=== PATIENT | female | born 1980 | race Caucasian/White ===

== ENCOUNTER 2020-10-13 06:52 | Emergency (ER) | payer MEDICAID, SELFPAY ==
[2020-10-13 07:09] VITALS: BP 122/76; PULSE 88; RESP 16; TEMP 36.8; O2SAT 97; BMI 29.2
--- NOTE | 2020-10-13 07:32 | ED.FEMALEGU ---
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 and procedure was fine there was no active bleeding from the lesion today patient woke up with blood soaked in the bed feeling slightly weak MD elicited complaint: vaginal bleeding Onset (ago): day(s) (14) Severity: moderate Related Data Allergies Allergy/AdvReac Type Severity Reaction Status Date / Time amoxicillin [Amoxicillin] Allergy Mild HIVES, rash Unverified 08/10/20 16:28 Penicillins Allergy Mild HIVES Unverified 08/10/20 16:28 penicillin V Allergy Unknown rash Verified 09/28/18 00:00 Review of Systems Constitutional: Constitutional: Reports fatigue and Reports weakness Cardiovascular: Cardiovascular: Reports no additional cardiovascular complaints Respiratory: Respiratory: Reports no additional respiratory complaints Gastrointestinal: Gastrointestinal: Reports no additional gastrointestinal complaints Genitourinary: Genitourinary: Reports as per HPI Musculoskeletal: Musculoskeletal: Reports no additional musculoskeletal complaints Neurologic: Reports system reviewed and no additional complaints, except as documented and Reports weakness Endocrine: Endocrine: Reports fatigue Hematologic/Lymphatic: Hematologic/Lymphatic: Reports no additional hematologic/lymphatic complaints [facility] Past Medical History Medical History Hypothyroidism Surgical History H/O tubal ligation Social History Social History Advance Directives: No Advance Directives Information Provided: No Physical Exam Vital Signs: Vital Signs: Last Vital Signs Temp 98.2 F 10/13/20 07:09 Pulse 88 10/13/20 07:09 Resp 16 10/13/20 07:09 BP 122/76 10/13/20 07:09 Pulse Ox 97 10/13/20 07:09 Body Mass Index 29.2 Appearance: Alert. Oriented X3. No acute distress. Eyes: Pupils equal, round and reactive to light. ENT: Pharynx normal. Neck: Normal inspection. Neck supple. CVS: Normal heart rate and rhythm. Pulses normal. Respiratory: No respiratory distress. Breath sounds normal. Abdomen: Soft , mild tenderness lower pelvic area Skin: Skin warm and dry. Normal skin color. Normal skin turgor. Extremities: No lower extremity edema. Good range of movement Neuro: Oriented X 3. No motor deficit. No sensory deficit. MDM - Female Genitourinary MDM Narrative Medical decision making narrative: patient with dysfunctional uterine bleeding with stable vitals and H&H ultrasound of the pelvis done which did not show any uterine lesion patient denies any history of DVT or family history of breast cancer agree to start start her on control pills patient had urine test done outpatient last week which was negative for and patient has tubal ligation Medical Records Attestation: I reviewed the patient's medical records. Lab Data Attestation: I reviewed the patient's lab results. Result diagrams: 10/13/20 07:59 10/13/20 07:59 Labs: Lab Results 10/13/20 10/13/20 10/13/20 Range/Units 07:59 07:59 07:59 WBC 6.1 (4.8-10.8) X10*3/uL RBC 4.09 L (4.20-5.50) X10*6/uL Hgb 13.5 (12.0-16.0) g/dl Hct 39.2 (37-47) % MCV 95.8 (80-98) fL MCH 33.0 (27.0-33.0) pg MCHC 34.4 (31.0-35.0) g/dl RDW 11.3 (11.0-16.0) % Plt Count 247 (160-400) X10*3/uL MPV 9.5 (9.4-12.3) fL Immature Gran % (Auto) 0.2 (0.0-0.4) % Neut % (Auto) 70.4 (45-73) % Lymph % (Auto) 18.8 L (20-40) % [place] % (Auto) 8.6 (2-11) % Eos % (Auto) 1.5 (0-4) % Baso % (Auto) 0.5 (0-2) % Lymph # (Auto) 1.1 L (1.2-4.9) X10*3/uL [place] # (Auto) 0.5 (0.1-1.2) X10*3/uL Eos # (Auto) 0.1 (0.0-0.4) X10*3/uL Baso # (Auto) 0.0 (0.0-0.2) X10*3/uL Abs Immat Gran (auto) 0.01 (0.00-0.03) X10*3/uL Absolute Neuts (auto) 4.3 (2.0-8.3) X10*3/uL Absolute Nucleated RBC 0.000 (0.0-0.012) X10*3/uL Nucleated RBC % (auto) 0.0 (0.0-0.2) /100WBC PT 12.3 (10.8-13.0) SEC INR 1.0 (0.9-1.1) Sodium 139 (135-145) mmol/L Potassium 4.0 (3.3-5.1) mmol/l Chloride 108 (96-108) mmol/L Carbon Dioxide 25 (22-29) mmol/L Anion Gap 10 L (12-20) BUN 10 (9-16) mg/dL Creatinine 0.75 (0.5-1.4) mg/dL Estim Creat Clear Calc 88.5 Estimated GFR > 60 Random Glucose 99 (60-115) mg/dL Calcium 8.3 L (8.4-10.2) mg/dL
--- NOTE | 2020-10-13 08:02 | PC.NURSE ---
PT SITTING UP AWAITING US LABS HAVE BEEN DRAWN AND SENT AWAITING RESULTS
[2020-10-13 08:04] LABS: MANUAL DIFF FLAG NO
[2020-10-13 08:12] LABS: Prothrombin Time 12.3 SEC (10.8-13.0)
[2020-10-13 08:16] LABS: Basophils Percent Auto 0.5 % (0-2); Eosinophils Absolute Auto 0.1 X10*3/uL (0.0-0.4); Eosinophils Percent Auto 1.5 % (0-4); Hematocrit 39.2 % (37-47); Hemoglobin 13.5 g/dl (12.0-16.0); Imm Gran Abs Auto 0.01 X10*3/uL (0.00-0.03); Imm Gran Pct Auto 0.2 % (0.0-0.4); Lymphocytes Absolute Auto 1.1 X10*3/uL (1.2-4.9); Lymphocytes Percent Auto 18.8 % (20-40); Mean Corpuscular HGB Conc 34.4 g/dl (31.0-35.0); Mean Corpuscular Volume 95.8 fL (80-98); Mean Platelet Volume 9.5 fL (9.4-12.3); Monocytes Absolute Auto 0.5 X10*3/uL (0.1-1.2); Monocytes Percent Auto 8.6 % (2-11); Neutrophils Absolute Auto 4.3 X10*3/uL (2.0-8.3); Neutrophils Percent Auto 70.4 % (45-73); Platelet Count 247 X10*3/uL (160-400); Red Blood Count 4.09 X10*6/uL (4.20-5.50); Red Cell Distribution Width 11.3 % (11.0-16.0); White Blood Count 6.1 X10*3/uL (4.8-10.8)
[2020-10-13 08:31] LABS: Anion Gap 10 (12-20); Blood Urea Nitrogen 10 mg/dL (9-16); Calcium 8.3 mg/dL (8.4-10.2); Carbon Dioxide 25 mmol/L (22-29); Chloride 108 mmol/L (96-108); Creatinine Clr Calc Pharmacy 88.5; Estimated Glomerular Filt Rate > 60; Glucose Random 99 mg/dL (60-115); Sodium 139 mmol/L (135-145)
--- NOTE | 2020-10-13 08:42 | US_ITS ---
EXAMINATION: PELVIC ULTRASOUND CLINICAL INFORMATION: Heavy vaginal bleeding. Post LEEP procedure 09/29/2020 COMPARISON: Previous CT of the abdomen and pelvis and pelvic ultrasound May 2016 TECHNIQUE: Transabdominal and transvaginal pelvic ultrasound was performed. Transvaginal exam was performed for better visualization of the uterus and ovaries. FINDINGS: The uterus is anteverted and measures 10.5 x 3.3 x 5.2 cm in dimension. There is a small cyst adjacent to the endometrium in the anterior uterine body measuring 7 x 4 x 7 mm. No other focal uterine lesion is seen. Endometrial thickness is upper normal in size measuring 1.5 cm. The cervix is heterogeneous appearing. There is a nabothian cyst in the cervix. The ovaries are seen transabdominally only. The ovaries are normal-appearing. The right ovary measures 3 x 1.7 x 2.2 cm and the left ovary measures 2.5 x 1.1 x 1.8 cm. There is no fluid in the pelvis. US/US transvaginal IMPRESSION: Small 5 mm cyst adjacent to the endometrium. The endometrium is upper normal in thickness measuring 1.5 cm. Heterogeneous appearing cervix.
--- NOTE | 2020-10-13 08:42 | US_ITS ---
EXAMINATION: PELVIC ULTRASOUND CLINICAL INFORMATION: Heavy vaginal bleeding. Post LEEP procedure 09/29/2020 COMPARISON: Previous CT of the abdomen and pelvis and pelvic ultrasound May 2016 TECHNIQUE: Transabdominal and transvaginal pelvic ultrasound was performed. Transvaginal exam was performed for better visualization of the uterus and ovaries. FINDINGS: The uterus is anteverted and measures 10.5 x 3.3 x 5.2 cm in dimension. There is a small cyst adjacent to the endometrium in the anterior uterine body measuring 7 x 4 x 7 mm. No other focal uterine lesion is seen. Endometrial thickness is upper normal in size measuring 1.5 cm. The cervix is heterogeneous appearing. There is a nabothian cyst in the cervix. The ovaries are seen transabdominally only. The ovaries are normal-appearing. The right ovary measures 3 x 1.7 x 2.2 cm and the left ovary measures 2.5 x 1.1 x 1.8 cm. There is no fluid in the pelvis. US/US pelvic complete IMPRESSION: Small 5 mm cyst adjacent to the endometrium. The endometrium is upper normal in thickness measuring 1.5 cm. Heterogeneous appearing cervix.
== END 2020-10-13 11:01 | disposition home or self-care (01) ==
PROVIDERS: Emergency Provider Internal Medicine; PCP Internal Medicine
DX: N93.8 Other specified abnormal uterine and vaginal bleeding (principal); R10.2 Pelvic and perineal pain
CPT/HCPCS: 36415; 76830; 76856; 80048; 85025; 85610; 99282; 99284

== ENCOUNTER → 2020-11-03 08:24 | Outpatient (BNVA) | payer OTHER, SELFPAY | PROVIDERS: PCP Internal Medicine; Visit Provider Obstetrics & Gynecology | DX: Z30.011 Encounter for initial prescription of contraceptive pills (principal) | CPT/HCPCS: 99212 ==

== ENCOUNTER 2020-11-29 13:40 | Outpatient (REF) | payer OTHER, SELFPAY | END 2020-11-29 13:41 | disposition home or self-care (01) | LOC: HO.LAB 13:40 | PROVIDERS: PCP Internal Medicine; Visit Provider Obstetrics & Gynecology | DX: N93.9 Abnormal uterine and vaginal bleeding, unspecified (principal) | CPT/HCPCS: 58100; 81025; 88305 ==

== ENCOUNTER → 2020-12-06 13:25 | Outpatient (BNVA) | payer OTHER, SELFPAY | PROVIDERS: PCP Internal Medicine; Visit Provider Obstetrics & Gynecology | DX: Z76.89 Persons encountering health services in other specified circumstances (principal) ==

== ENCOUNTER 2020-12-25 07:51 | Outpatient (REF) | payer OTHER, SELFPAY ==
[2020-12-25 08:18] LABS: MANUAL DIFF FLAG NO
[2020-12-25 08:23] LABS: Basophils Percent Auto 0.8 % (0-2); Eosinophils Absolute Auto 0.2 X10*3/uL (0.0-0.4); Hematocrit 40.2 % (37-47); Hemoglobin 13.5 g/dl (12.0-16.0); Imm Gran Abs Auto 0.02 X10*3/uL (0.00-0.03); Imm Gran Pct Auto 0.4 % (0.0-0.4); Lymphocytes Absolute Auto 1.3 X10*3/uL (1.2-4.9); Lymphocytes Percent Auto 24.6 % (20-40); Mean Corpuscular HGB Conc 33.6 g/dl (31.0-35.0); Mean Corpuscular Hemoglobin 33.1 pg (27.0-33.0); Mean Corpuscular Volume 98.5 fL (80-98); Mean Platelet Volume 9.9 fL (9.4-12.3); Monocytes Absolute Auto 0.6 X10*3/uL (0.1-1.2); Monocytes Percent Auto 10.4 % (2-11); Neutrophils Absolute Auto 3.2 X10*3/uL (2.0-8.3); Neutrophils Percent Auto 59.8 % (45-73); Platelet Count 218 X10*3/uL (160-400); Red Blood Count 4.08 X10*6/uL (4.20-5.50); Red Cell Distribution Width 11.7 % (11.0-16.0); White Blood Count 5.3 X10*3/uL (4.8-10.8)
[2020-12-25 08:51] LABS: Alanine Aminotransferase 24 U/L (0-31); Albumin Level 4.2 g/dL (3.5-5.0); Alkaline Phosphatase 36 U/L (39-117); Anion Gap 11 (12-20); Aspartate Amino Transferase 20 U/L (5-31); Bilirubin Total 0.4 mg/dL (0.0-1.0); Blood Urea Nitrogen 10 mg/dL (9-16); Calcium 8.8 mg/dL (8.4-10.2); Carbon Dioxide 25 mmol/L (22-29); Chloride 106 mmol/L (96-108); Cholesterol 217 mg/dL; Estimated Glomerular Filt Rate > 60; Glucose Fasting 93 mg/dL (60-99); HDL Cholesterol 61 mg/dL; LDL Cholesterol Calculated 128 mg/dl; Potassium 4.4 mmol/L (3.3-5.1); Sodium 138 mmol/L (135-145); Total Protein 6.8 g/dL (6.5-8.0); Triglycerides 140 mg/dL
[2020-12-25 09:00] LABS: Glucose Urine UA NEG (NEG); Leukocyte Esterase Urine NEG (NEG); Nitrite Urine NEG (NEG); Specific Gravity - Urine >= 1.030 (1.005-1.025); Urine Blood NEG (NEG); Urine Ketones NEG (NEG); Urine Protein NEG (NEG-TRACE)
[2020-12-25 09:01] LABS: Appearance Urine HAZY; Color Urine YELLOW
[2020-12-25 09:11] LABS: Thyroid Stimulating Hormone 0.63 uIU/mL (0.32-4.0)
== END 2020-12-25 07:52 | disposition home or self-care (01) ==
LOC: HO.LAB 07:51
PROVIDERS: PCP Internal Medicine; Visit Provider Internal Medicine
DX: Z00.00 Encounter for general adult medical examination without abnormal findings (principal); E03.9 Hypothyroidism, unspecified
CPT/HCPCS: 36415; 80053; 80061; 81003; 84443; 85025

== ENCOUNTER → 2021-01-23 13:20 | Outpatient (BNVA) | payer OTHER, SELFPAY | PROVIDERS: PCP Internal Medicine; Visit Provider Internal Medicine | DX: R07.2 Precordial pain (principal) | CPT/HCPCS: 93005; 99202 ==

== ENCOUNTER 2021-07-17 10:28 | Outpatient (REF) | payer OTHER, SELFPAY ==
[2021-07-17 12:07] LABS: Thyroid Stimulating Hormone 0.82 uIU/mL (0.32-4.0)
== END 2021-07-17 10:29 | disposition home or self-care (01) ==
LOC: HO.LNP 10:28
PROVIDERS: Visit Provider Internal Medicine
DX: E03.9 Hypothyroidism, unspecified (principal)
CPT/HCPCS: 84443

== ENCOUNTER → 2021-07-20 14:17 | Outpatient (BNVA) | payer OTHER, SELFPAY | PROVIDERS: PCP Internal Medicine; Visit Provider Advanced Practice Midwife | DX: Z30.41 Encounter for surveillance of contraceptive pills (principal); R23.2 Flushing | CPT/HCPCS: 99212 ==

== ENCOUNTER 2021-07-23 07:24 | Outpatient (REF) | payer OTHER, SELFPAY ==
--- NOTE | ~2021-07-23 | MM_ITS ---
EXAMINATION: MM SCREENING DIGITAL BREAST TOMOSYNTHESIS, BILATERAL CLINICAL INFORMATION: Screening. Asymptomatic. Age 41. No prior breast imaging. No known family history breast cancer. The lifetime risk of breast cancer based on the Tyrer-Cuzick Model is 9%. COMPARISON: None (current study represents initial baseline exam). TECHNIQUE: Digital breast tomosynthesis is performed in both the craniocaudal and mediolateral oblique views along with computer-aided detection (CAD). Synthesized 2D images are generated from the tomosynthesis. FINDINGS: The breasts are heterogeneously dense, which may obscure small masses (ACR BI-RADS breast composition Category c). Breast tissue composition borders on average fibroglandular. There is fine fibronodular parenchymal pattern without significant mass or architectural abnormality. There are no abnormal calcifications. The axilla and skin contours are unremarkable. MM/MM tomosynthesis screening BI IMPRESSION: No mammographic evidence of malignancy. ASSESSMENT: BI-RADS 1: Negative RECOMMENDATION: Routine annual mammography screening. This patient's information was entered into a reminder system with a target due date for their next mammogram.
== END 2021-07-23 07:25 | disposition home or self-care (01) ==
LOC: HO.MAMMO 07:24
PROVIDERS: Visit Provider Advanced Practice Midwife
DX: Z12.31 Encounter for screening mammogram for malignant neoplasm of breast (principal)
CPT/HCPCS: 77063; 77067

== ENCOUNTER 2021-10-15 13:21 | Outpatient (REF) | payer OTHER, SELFPAY ==
[2021-10-19 16:31] LABS: HPV mRNA E6/E7 rflx Not Detected (Not Detected)
== END 2021-10-15 13:22 | disposition home or self-care (01) ==
LOC: HO.LAB 13:21
PROVIDERS: PCP Internal Medicine; Visit Provider Advanced Practice Midwife
DX: Z01.419 Encounter for gynecological examination (general) (routine) without abnormal findings (principal); Z79.899 Other long term (current) drug therapy
CPT/HCPCS: 87624; 88142

== ENCOUNTER 2021-12-28 10:46 | Outpatient (REF) | payer OTHER, SELFPAY ==
[2021-12-28 10:49] LABS: MANUAL DIFF FLAG NO
[2021-12-28 10:59] LABS: Basophils Percent Auto 0.5 % (0-2); Eosinophils Absolute Auto 0.2 X10*3/uL (0.0-0.4); Eosinophils Percent Auto 2.7 % (0-4); Hematocrit 40.8 % (37.0-47.0); Hemoglobin 13.8 g/dl (12.0-16.0); Imm Gran Abs Auto 0.01 X10*3/uL (0.00-0.03); Imm Gran Pct Auto 0.2 % (0.0-0.4); Lymphocytes Absolute Auto 1.7 X10*3/uL (1.2-4.9); Lymphocytes Percent Auto 27.6 % (20-40); Mean Corpuscular HGB Conc 33.8 g/dl (31.0-35.0); Mean Corpuscular Hemoglobin 31.6 pg (27.0-33.0); Mean Corpuscular Volume 93.4 fL (80.0-98.0); Mean Platelet Volume 10.1 fL (9.4-12.3); Monocytes Absolute Auto 0.8 X10*3/uL (0.1-1.2); Monocytes Percent Auto 12.9 % (2-11); Neutrophils Absolute Auto 3.5 x10*3/uL (2.0-8.3); Neutrophils Percent Auto 56.1 % (45-73); Platelet Count 275 X10*3/uL (160-400); Red Blood Count 4.37 X10*6/uL (4.20-5.50); Red Cell Distribution Width 12.5 % (11.0-16.0); White Blood Count 6.2 X10*3/uL (4.8-10.8)
[2021-12-28 11:00] LABS: Appearance Urine CLEAR; Color Urine YELLOW; Glucose Urine UA NEG (NEG); Leukocyte Esterase Urine NEG (NEG); Nitrite Urine NEG (NEG); Specific Gravity - Urine 1.025 (1.005-1.025); Urine Blood NEG (NEG); Urine Ketones NEG (NEG); Urine Protein NEG (NEG-TRACE)
[2021-12-28 11:15] LABS: Alanine Aminotransferase 19 U/L (0-31); Alkaline Phosphatase 54 U/L (39-117); Anion Gap 12 (12-20); Aspartate Amino Transferase 14 U/L (5-31); Bilirubin Total 0.5 mg/dL (0.0-1.0); Blood Urea Nitrogen 14 mg/dL (9-16); Calcium 9.2 mg/dL (8.4-10.2); Carbon Dioxide 23 mmol/L (22-29); Chloride 109 mmol/L (96-108); Cholesterol 184 mg/dL; Estimated Glomerular Filt Rate > 60; Glucose Fasting 101 mg/dL (60-99); HDL Cholesterol 46 mg/dL; LDL Cholesterol Calculated 124 mg/dl; Potassium 4.2 mmol/L (3.3-5.1); Sodium 140 mmol/L (135-145); Total Protein 6.5 g/dL (6.5-8.0); Triglycerides 71 mg/dL
== END 2021-12-28 10:47 | disposition home or self-care (01) ==
LOC: HO.LNP 10:46
PROVIDERS: Visit Provider Internal Medicine
DX: Z00.00 Encounter for general adult medical examination without abnormal findings (principal); E03.9 Hypothyroidism, unspecified
CPT/HCPCS: 80053; 80061; 81003; 85025

== ENCOUNTER 2022-12-25 07:20 | Outpatient (REF) | payer OTHER, SELFPAY ==
--- NOTE | ~2022-12-25 | MM_ITS ---
EXAMINATION: MM SCREENING DIGITAL BREAST TOMOSYNTHESIS, BILATERAL CLINICAL INFORMATION: Screening. Asymptomatic. The lifetime risk of breast cancer based on the Tyrer-Cuzick Model is 9%. COMPARISON: Mammography: 07/23/2021 (baseline) TECHNIQUE: Digital breast tomosynthesis is performed in both the craniocaudal and mediolateral oblique views along with computer-aided detection (CAD). Synthesized 2D images are generated from the tomosynthesis. FINDINGS: The breasts are heterogeneously dense, which may obscure small masses (ACR BI-RADS breast composition Category c). There are no significant masses, abnormal calcifications, or other abnormalities. There is fine fibronodular pattern similar to initial baseline exam. No developing density or architectural abnormality. No significant changes. MM/MM tomosynthesis screening BI IMPRESSION: No mammographic evidence of malignancy. ASSESSMENT: BI-RADS 1: Negative RECOMMENDATION: Routine annual mammography screening. This patient's information was entered into a reminder system with a target due date for their next mammogram.
== END 2022-12-25 07:21 | disposition home or self-care (01) ==
LOC: HO.MAMMO 07:20
PROVIDERS: Referring Provider Advanced Practice Midwife; Visit Provider Internal Medicine
DX: Z12.31 Encounter for screening mammogram for malignant neoplasm of breast (principal)
CPT/HCPCS: 77063; 77067

== ENCOUNTER → 2023-01-28 12:44 | Outpatient (BNVA) | payer OTHER, SELFPAY | PROVIDERS: PCP Internal Medicine; Visit Provider Advanced Practice Midwife | DX: Z13.89 Encounter for screening for other disorder (principal) ==

== ENCOUNTER 2023-06-18 08:17 | Outpatient (AMB) | payer OTHER, SELFPAY ==
[2023-06-18 08:31] VITALS: BP 122/80; PULSE 80; O2SAT 98; BMI 30.4
--- NOTE | 2023-06-18 08:31 | MHC.OFFVIS ---
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 Pt states I've had ocular migraines for that past few years but I feel like they have gotten more frequent and more intense. Pt states she's going though perimenopause which may be attributing this with the hormone changes. 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 Pt reports she has headaches her entire life. She thinks she initially had TTH, and then developed migraines about 14 yrs ago, and then ocular migraines about 8 yrs (about 4 months following the of her son). She is currently perimenopausal- has had late but then heavy and prolonged menses. She was put on OCP- which has controlled the bleeding. However she is still having an increase in her migraines. Headache questionnaire: Headache characteristics? Sometimes bi-maxillary, parietal, or in the back of the head. Throbbing/aching pain, sometimes stabbing. Pain intensity? Usually 7-8/10 but can be worse. Prodrome symptoms? None Aura? Left vision blurriness, like heat rising from the ground, then vision is spotty- this lasts 15-20 min. This occurs once every few months. Associated symptoms? Photophobia, phonophobia, nausea, fatigue, lightheadedness, brain fog Focal weakness, Parethesias, Autonomic s/s? watery Postdrome? 99% percent of the- cloudiness and fatigue Triggers? None- often stressed Positional, valsalva, exertional, sexual activity triggers? 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 may feel more migarine- when she would have her cycle Time of day? no specific time of day Duration? The whole day Frequency? 4-5 migraines days per month How does headache impact your life? She may miss work for her migraine. 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 Current acute medication use/interventions: Excedrin migraine- but causes GI upset/anorexia. Previous acute medication use: Sumatriptan- caused chest tightness Current preventative medication use: None Previous preventative medication use: Propranolol- did not tolerate and caused wheezing. Non-pharmacological interventions: Lays down in a quiet and dark room. Other history of headache disorder? No other History of musculoskeletal disorders or injury? None History of concussion/head injury? Has had 1 concussion- in - mild History of mood disorder? anxiety/depression- controlled- mostly post- but a bit mroe in the last few yrs History of sleep disorder? no issues History of respiratory disease? none History of CV disease? none History of coagulopathy? none History of endocrine or metabolic disease? Hypothyroidism History of seizure? None Other? Prone to constipation. Denies dizziness. Family planning? s/p tubal ligation Family history of migraine or other headache disorder? her dtr at times 03/08/23 Ray[place], Brain MRI w/o: FINDINGS: There is no acute infarct on diffusion-weighted imaging. There is no intracranial hemorrhage on iron-sensitive imaging. No extra-axial collection or mass effect/herniation. There are several scattered foci of nonspecific bifrontal white matter T2/FLAIR signal abnormality as well as a larger bandlike lesion in the periventricular white matter along the posterior body of the right lateral ventricle (series 10 image 15). No hydrocephalus. The ventricles are normal in morphology and size. The major flow voids at the skull base are preserved. The midline structures are normal. The cerebellar tonsils are normally positioned. The craniocervical junction is normal. Marrow signal is within normal limits. The visualized soft tissues are without significant abnormality. No signal abnormality within the paranasal sinuses or within the mastoid air cells. IMPRESSION: 1. Several scattered foci of bifrontal white matter T2/FLAIR signal abnormality are nonspecific but can be seen in the setting of migraine headache. There is a larger bandlike lesion in the periventricular white matter along the posterior body of the right lateral ventricle. Although there are no specific imaging features of demyelinating disease, this is not entirely excluded on the basis of this examination. 2. Otherwise unremarkable noncontrast MRI of the brain. 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 Head: Yes normocephalic Resp Effort & Inspection: normal respiratory effort and able to speak in complete sentences Neuro General: patient oriented x3 Cranial nerves: Yes CN's II-XII intact bilaterally Cognition (Neuro): normal cognition Gait exam (Neuro): Normal gait present Motor exam (neuro): 5/5 motor strength present throughout Deep tendon reflexes (DTR's): Right triceps reflex intensity grade: 2+, Left triceps reflex intensity grade: 2+, Rt Biceps (C5, C6): 2+, Left biceps reflex intensity grade: 2+, Right brachioradialis reflex intensity grade: 2+, Left brachioradialis reflex intensity grade: 2+, Right patellar reflex intensity grade: 2+ and Left patellar reflex intensity grade: 2+ Coordination: [id number] test normal, tandem gait normal and Romberg test negative Pupils: Normal pupillary reactivity/response: bilateral Psych Appearance: grossly normal Mental Status: mental status grossly normal Speech and movement: Normal speech and movement present Affect: normal affect Attitude: cooperative Thought process: Normal thought process present Assessment & Plan Assessment & Plan (1) Migraine with aura: Code(s): G43.109 - Migraine with aura, not intractable, without status migrainosus (2) White matter abnormality on MRI of brain: Code(s): R90.82 - White matter disease, unspecified Plan Reviewed brain MRI report and images: Several scattered foci of bifrontal white matter T2/FLAIR signal abnormality are nonspecific but can be seen in the setting of migraine headache. There is a larger bandlike lesion in the periventricular white matter along the posterior body of the right lateral ventricle. No current s/s demyelinating process- consider f/u MRi in 1 yr. For h/o orgasm induced migraine- If recurss, consider Brain MRA/CTA For overall headache management: Discussed importance of good self-care, including but not limited to maintaining a healthy diet, adequate fluid intake, adequate sleep, and engaging in regular physical activity. For headache triggers: Track headaches, especially after any treatment regimen changes. Migraine [employer] is one of many headache tracking apps. For acute migraine treatment: Discussed importance of taking acute medications at the first sign of headache, however stressed importance of avoiding acute medication overuse (especially with combined headache medications). Trial Rizatriptan 10mg tab, 1/2 - 1 tab (5-10mg) at onset of headache, may repeat in 2 hours. Max of 2 tabs (200mg) per 24 hours. May adjunct with OTC Tylenol 650mg q 4 hours, Ibuprofen (liquigel) 600mg q 6 hours, or Naproxen (liquigel) 440mg q 12 hrs prn. Reviewed potential adverse effects of triptans, including but not limited to nausea, fatigue, chest tightness/tingling (usually passes within a few minutes), medication overuse headaches.. Previous acute migraine medication trials: Sumatriptan- caused chest paresthesias. Excedrin- helps some. Acute migraine medication contraindications: None at this time For headache prevention medication: Discussed that preventative medications should be taken routinely as prescribed for best effect, it may take several weeks for full effect to take effect. Start Riboflavin 400mg qam Start Magnesium 400mg qhs Start Amitriptyline 10mg qhs. May stagger starting these. Potential adverse effects of TCAs, including but not limited to fatigue, cardiac arrhythmias, mood changes. Previous migraine prevention medication trials: Propranolol- not tolerated- caused her to not feel well and caused wheezing, . Migraine prevention medication contraindications: None at this time Information also given on non-pharmacological interventions, such as migraine cooling caps Pt to follow-up in 3 months or sooner prn. Medications: New magnesium oxide may hold for loose stools 400 mg PO BEDTIME 30 tabs 6RF 30 days riboflavin (vitamin B2) 400 mg PO DAILY 30 tabs 6RF 30 days rizatriptan max 2 tabs per day or 4 tabs per week 5 - 10 mg (0.5 - 1 x 10 mg) PO Q2H PRN 12 tabs 3RF migraine headache 21 days amitriptyline 10 mg PO BEDTIME 30 tabs 3RF 30 days Coding Level of Care Code New Pt Level 4 (60742) Diagnoses Migraine with aura G43.109 White matter abnormality on MRI of brain R90.82
== END 2023-06-18 09:44 | disposition home or self-care (01) ==
PROVIDERS: Visit Provider Nurse Practitioner Family
DX: G43.109 Migraine with aura, not intractable, without status migrainosus (principal); R90.82 White matter disease, unspecified
CPT/HCPCS: 99204

== ENCOUNTER → 2023-06-18 08:17 | Outpatient (BNVA) | payer OTHER, SELFPAY | PROVIDERS: Visit Provider Nurse Practitioner Family ==

== ENCOUNTER 2023-07-14 11:14 | Outpatient (REF) | payer OTHER, SELFPAY ==
[2023-07-14 11:19] LABS: MANUAL DIFF FLAG NO
[2023-07-14 11:32] LABS: Appearance Urine Clear; Basophils Absolute Auto 0.1 X10*3/uL (0.0-0.2); Basophils Percent Auto 1.1 % (0-2); Color Urine Yellow; Eosinophils Absolute Auto 0.3 X10*3/uL (0.0-0.4); Eosinophils Percent Auto 4.8 % (0-4); Glucose Urine UA Negative (Negative); Hematocrit 44.4 % (37.0-47.0); Hemoglobin 14.7 g/dl (12.0-16.0); Imm Gran Abs Auto 0.01 X10*3/uL (0.00-0.03); Imm Gran Pct Auto 0.2 % (0.0-0.4); Leukocyte Esterase Urine Negative (Negative); Lymphocytes Absolute Auto 1.9 X10*3/uL (1.2-4.9); Lymphocytes Percent Auto 35.3 % (20-40); Mean Corpuscular HGB Conc 33.1 g/dl (31.0-35.0); Mean Corpuscular Hemoglobin 31.7 pg (27.0-33.0); Mean Corpuscular Volume 95.7 fL (80.0-98.0); Mean Platelet Volume 9.9 fL (9.4-12.3); Monocytes Absolute Auto 0.6 X10*3/uL (0.1-1.2); Monocytes Percent Auto 10.3 % (2-11); Neutrophils Absolute Auto 2.6 x10*3/uL (2.0-8.3); Neutrophils Percent Auto 48.3 % (45-73); Nitrite Urine Negative (Negative); Platelet Count 268 X10*3/uL (160-400); Red Blood Count 4.64 X10*6/uL (4.20-5.50); Red Cell Distribution Width 12.1 % (11.0-16.0); Specific Gravity - Urine 1.015 (1.005-1.025); Urine Blood Negative (Negative); Urine Ketones Negative (Negative); Urine Protein Negative (Neg-Trace); White Blood Count 5.4 X10*3/uL (4.8-10.8)
[2023-07-14 11:37] LABS: Bacteria Urine None Seen (None Seen); Hyaline Casts Urine 0-2 /LPF (0-2); RBC Urine 0-2 /HPF (0-2); Squamous Epithelial Cell Urine 0-2 /HPF (0-2); WBC Urine 0-5 /HPF (0-5)
[2023-07-14 11:54] LABS: Alanine Aminotransferase 15 U/L (0-31); Albumin Level 4.2 g/dL (3.5-5.0); Alkaline Phosphatase 62 U/L (39-117); Anion Gap 13 (12-20); Aspartate Amino Transferase 17 U/L (5-31); Bilirubin Total 0.3 mg/dL (0.0-1.0); Blood Urea Nitrogen 11 mg/dL (9-16); Calcium 9.3 mg/dL (8.4-10.2); Carbon Dioxide 24 mmol/L (22-29); Chloride 111 mmol/L (96-108); Cholesterol 200 mg/dL (<200); Estimated Glomerular Filt Rate > 60; Glucose Fasting 95 mg/dL (60-99); HDL Cholesterol 64 mg/dL (>40); LDL Cholesterol Calculated 122 mg/dL (<100); Potassium 4.8 mmol/L (3.3-5.1); Sodium 143 mmol/L (135-145); Total Protein 7.1 g/dL (6.5-8.0); Triglycerides 70 mg/dL (<150)
[2023-07-14 12:11] LABS: TSH reflex Free T4 < 0.01 uIU/mL (0.32-4.0)
== END 2023-07-14 11:15 | disposition home or self-care (01) ==
LOC: HO.LNP 11:14
PROVIDERS: Visit Provider Internal Medicine
DX: Z00.00 Encounter for general adult medical examination without abnormal findings (principal); E03.9 Hypothyroidism, unspecified
CPT/HCPCS: 80053; 80061; 81001; 84439; 84443; 85025

== ENCOUNTER 2023-12-05 22:59 | Emergency (ER) | payer OTHER, SELFPAY ==
--- NOTE | ~2023-12-05 | XR_ITS ---
EXAMINATION: XR CHEST CLINICAL INFORMATION: Prolonged cough. COMPARISON: Chest radiograph 06/03/2020. TECHNIQUE: Frontal view of the chest was obtained. FINDINGS: Normal appearance of the cardiomediastinal silhouette. No focal airspace opacities, pleural effusion or pneumothorax. No acute osseous findings. Visualized upper abdomen is within normal limits. XR/XR chest 1V IMPRESSION: No acute cardiopulmonary findings.
[2023-12-05 23:01] VITALS: BP 115/74; PULSE 91; RESP 20; TEMP 36.6; O2SAT 93; BMI 28.9
== END 2023-12-06 01:19 | disposition left against medical advice (07) ==
PROVIDERS: Emergency Provider Emergency Medicine
DX: R06.02 Shortness of breath (principal); R05.9 Cough, unspecified
CPT/HCPCS: 71045; 99281; 99283

== ENCOUNTER 2023-12-30 07:23 | Outpatient (REF) | payer OTHER, SELFPAY | END 2023-12-30 07:24 | disposition home or self-care (01) | LOC: HO.MAMMO 07:23 | PROVIDERS: PCP Internal Medicine; Visit Provider Internal Medicine | DX: Z12.31 Encounter for screening mammogram for malignant neoplasm of breast (principal) | CPT/HCPCS: 77063; 77067 ==

== ENCOUNTER → 2023-12-30 07:30 | Outpatient (BNV) | payer OTHER, SELFPAY | PROVIDERS: PCP Internal Medicine; Visit Provider Radiology Diagnostic Radiology | DX: Z12.31 Encounter for screening mammogram for malignant neoplasm of breast (principal) | CPT/HCPCS: 77063; 77067 ==

== ENCOUNTER 2024-01-23 12:50 | Outpatient (REF) | payer OTHER, MEDICAID, SELFPAY ==
[2024-01-23 14:35] LABS: TSH reflex Free T4 0.02 uIU/mL (0.32-4.0)
[2024-01-23 16:36] LABS: Free T4 (Free Thyroxine) 1.23 ng/dL (0.71-1.85)
== END 2024-01-23 12:51 | disposition home or self-care (01) ==
LOC: HO.LNP 12:50
PROVIDERS: Visit Provider Internal Medicine
DX: E03.9 Hypothyroidism, unspecified (principal)
CPT/HCPCS: 84439; 84443

== ENCOUNTER 2024-02-26 14:45 | Outpatient (REF) | payer OTHER, SELFPAY ==
--- NOTE | ~2024-02-26 | XR_ITS ---
EXAMINATION: XR CHEST CLINICAL INFORMATION: Asthma. Difficulty breathing COMPARISON: 12/05/2023 TECHNIQUE: 2 views of the chest were obtained. FINDINGS: No significant abnormality is noted involving the heart, lungs, mediastinum, bony thorax or soft tissues. No pneumothorax or pneumomediastinum. XR/XR chest 2V IMPRESSION: No active disease.
== END 2024-02-26 14:46 | disposition home or self-care (01) ==
LOC: HO.XRAY 14:45
PROVIDERS: PCP Internal Medicine; Visit Provider Internal Medicine
DX: J45.20 Mild intermittent asthma, uncomplicated (principal)
CPT/HCPCS: 71046

== ENCOUNTER 2024-05-07 10:52 | Outpatient (REF) | payer OTHER, SELFPAY | END 2024-05-07 10:53 | disposition home or self-care (01) | LOC: HO.LNP 10:52 | PROVIDERS: Visit Provider Internal Medicine | DX: E03.9 Hypothyroidism, unspecified (principal) | CPT/HCPCS: 84443 ==

== ENCOUNTER 2024-06-03 14:14 | Outpatient (REF) | payer OTHER, SELFPAY ==
[2024-06-04 03:20] LABS: CT PCR NOT DETECTED (Not Detect.); NG PCR NOT DETECTED (Not Detect.)
[2024-06-04 10:51] LABS: Bacterial Vaginosis PCR NEGATIVE (Negative); Candida Group PCR NOT DETECTED (Not Detect); Candida glab krusei PCR NOT DETECTED (Not Detect); Trichomonas vaginalis PCR NOT DETECTED (Not Detect)
[2024-06-08 15:04] LABS: HPV mRNA E6/E7 Not Detected (Not Detected)
== END 2024-06-03 14:15 | disposition home or self-care (01) ==
LOC: HO.LAB 14:14
PROVIDERS: PCP Internal Medicine; Visit Provider Advanced Practice Midwife
DX: Z01.419 Encounter for gynecological examination (general) (routine) without abnormal findings (principal); Z11.51 Encounter for screening for human papillomavirus (HPV); N92.1 Excessive and frequent menstruation with irregular cycle; N93.9 Abnormal uterine and vaginal bleeding, unspecified; Z20.2 Contact with and (suspected) exposure to infections with a predominantly sexual mode of transmission
CPT/HCPCS: 0352U; 36415; 81025; 87491; 87591; 87624; 88175

== ENCOUNTER 2024-06-03 14:14 | Outpatient (AMB) | payer OTHER, SELFPAY ==
[2024-06-03 14:25] VITALS: BP 112/76; BMI 28.7
--- NOTE | 2024-06-03 14:25 | MHC.OFFVIS ---
Vital Signs 06/03/24 14:25 Height 5 ft 2 in Weight 157 lb BMI 28.7 BP 112/76 Intake Visit Reasons: Annual Well Control Instructor: Well Control Instructor Present (aFni) Allergies amoxicillin [Amoxicillin] Allergy (Mild, Verified 06/03/24 14:25) HIVES, rash Penicillins Allergy (Mild, Verified 06/03/24 14:25) HIVES propranolol Adverse Reaction (Unknown, Verified 06/03/24 14:25) Wheezing Is last menstrual period known: Yes Last menstrual period: 05/20/24 HPI Comments Details: She is a premenopausal woman presenting for annual examination. Doing well with concerns: Bled 3 episodes with her last pill pack heavier than spotting. She denies any missed or late pills. She reports a thyroid levels have been stable. History of AUB and had an EMB in 2020. [facility] She tries to eat healthy and stays active with exercise. Currently is sexually active. She denies any contraindications to control such as: history of DVT or pulmonary emboli, high blood pressure, liver disease, thrombolic disorders, Lupus, +MAHNAZ, breast cancer, or smoking. She denies vaginal itching and irritation. STI screening offered; she accepts. Denies family history of breast, ovarian or colon cancer. Last pap smear 2020, negative. Mammogram: 2023, BI-RADS 1. 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 Sexual orientation: Straight/Heterosexual Gender identity: Female Female Reproductive History Menstrual Age of Menarche: 14 Date of last menstrual period: 05/20/24 control method: pills and permanent sterilization Permanent Sterilization: BTL Total pregnancies: 4 Full term: 3 Number of Living Children: 3 Date of last pap smear: 10/15/21 (neg pap and hpv) History of abnormal pap smear: Yes (Leep 2003) Date of Mammogram: 12/30/23 (Birad 1) Review of Systems Const All systems reviewed & are unremarkable except as noted in HPI and below Reports as per HPI Eyes Reports no additional complaints ENT Reports no additional complaints Card Reports no additional complaints Resp Reports no additional complaints GI Reports as per HPI and Reports no additional complaints Reports as per HPI Musc Reports no additional complaints Skin/Breast Reports as per HPI Neuro Reports no additional complaints Psych Reports no additional complaints Endo Reports no additional complaints Carlos/Lymph Reports no additional complaints Aller/Immun Reports no additional complaints Physical Exam Vital Signs: Last Vital Signs BP 112/76 06/03/24 14:25 BMI result Body Mass Index 28.7 Const General: cooperative, healthy appearing, no acute distress, well developed and alert Orientation/consciousness: patient oriented x3 HEENT Head: Yes normal to inspection Eyes General: appearance normal, both eyes and all related structures Neck Neck: Yes normal visual inspection Thyroid: Thyroid normal Chest Chest palpation & inspection: normal inspection of the chest and other (no puckering, dimpling, peau de orange, retraction, discharge, masses) Breast/axilla inspection: normal inspection of the breasts Breast/axilla palpation: normal palpation of the breasts Resp Effort & Inspection: normal respiratory effort GI Inspection: Yes normal to inspection Palpation (GI): Soft to palpation Rectal Exam - Female: deferred General: Yes bladder normal to palpation External Female Exam: normal external appearance and normal appearance of the urethra Speculum Exam - Vagina: normal appearance of the vagina, normal palpation and normal vaginal discharge Speculum Exam - Cervix: normal appearance of the cervix, normal palpation and Other cervical findings present (Post LEEP appearance, bled slightly with Pap) Bimanual exam- vagina & uterus: normal bimanual exam, normal palpation, uterine size normal, bladder normal to palpation, normal palpation and non-tender Bimanual Exam- Adnexa, other: no masses Skin General skin exam: no rashes or lesions noted Rashes: no rashes Neuro General: patient oriented x3 Cognition (Neuro): normal cognition Extrem General: Yes normal to inspection Psych Attitude: cooperative Thought process: Normal thought process present Results AMB Test Urine AMB Test Urine Negative Last Edit by GRANT Watson on 06/03/24 15:06 Results Reviewed Results Reviewed: Laboratory Last Values Tst Clinic Negative 06/03/24 14:59 Assessment & Plan Assessment & Plan (1) Encounter for well woman exam with routine gynecological exam: Code(s): Z01.419 - Encounter for gynecological examination (general) (routine) without abnormal findings Category: Medical Plan Discussed: Current recommendations for pap smears per ASCCP guidelines. Breast awareness and periodic breast exams. Maintain a healthy lifestyle including a well balanced diet and routine exercise. Mammogram yearly. control hormone use warnings: go to ER if and loss of vision, blindness, severe headache, chest pain or difficulty breathing, severe abdominal pain, or any pain or swelling in an extremity. If breakthrough bleeding pattern persists she will need a workup including endometrial biopsy and ultrasound. Advised to call the office if bleeding issues do not resolve. Patient verbalizes understanding and agrees to the plan of care. She was given opportunity to ask questions and all questions were answered to the best of my ability. RTO in one year for annual provider contracting consultant examination. This note is constructed using voice recognition software. While every effort has been made to ensure accuracy, educational fundraising director errors may have been included. Orders: Orders Bacterial Vaginosis Panel Today N92.1 - Excessive and frequent menstruation with irregular cycle, N93.9 - Abnormal uterine and vaginal bleeding, unspecified CT NG by PCR Today N92.1 - Excessive and frequent menstruation with irregular cycle, N93.9 - Abnormal uterine and vaginal bleeding, unspecified PAP Smear Today N93.9 - Abnormal uterine and vaginal bleeding, unspecified, Z01.419 - Encounter for gynecological examination (general) (routine) without abnormal findings AMB HCG Urine Test Today N92.1 - Excessive and frequent menstruation with irregular cycle, N93.9 - Abnormal uterine and vaginal bleeding, unspecified Coding Level of Care Code Est Pt Prev Care 40-64y(83859) Diagnoses Encounter for well woman exam with routine gynecological exam Z01.419
== END 2024-06-03 15:04 | disposition home or self-care (01) ==
PROVIDERS: PCP Internal Medicine; Visit Provider Advanced Practice Midwife
DX: N92.1 Excessive and frequent menstruation with irregular cycle (principal); N93.9 Abnormal uterine and vaginal bleeding, unspecified; Z01.419 Encounter for gynecological examination (general) (routine) without abnormal findings
CPT/HCPCS: 99396

== ENCOUNTER 2024-06-03 14:59 | Outpatient (REF) | payer OTHER, SELFPAY | END 2024-06-03 15:00 | disposition home or self-care (01) | LOC: HO.LNP 14:59 | PROVIDERS: Visit Provider Advanced Practice Midwife | DX: Z13.89 Encounter for screening for other disorder (principal) ==

== ENCOUNTER 2024-06-21 12:52 | Outpatient (AMB) | payer OTHER, SELFPAY ==
--- NOTE | 2024-06-21 13:12 | MHC.OFFVIS ---
Vital Signs 06/21/24 13:15 Height 5 ft 2 in Weight 156 lb 8.451 oz BMI 28.6 BP 110/66 Intake Visit Reasons: Colposcopy Jewel Setter Required: No Information Interpreted: non-clinical & clinical Stereo Plotter Operator: Stereo Plotter Operator Present (Laurence BURNS) Accompanied by: Self / Same As Patient Allergies amoxicillin [Amoxicillin] Allergy (Mild, Verified 06/21/24 13:16) HIVES, rash Penicillins Allergy (Mild, Verified 06/21/24 13:16) HIVES propranolol Adverse Reaction (Unknown, Verified 06/21/24 13:16) Wheezing Is last menstrual period known: Yes Last menstrual period: 05/30/24 PFSH Medical History Migraine with aura Hypothyroidism Surgical History History of loop electrical excision procedure (LEEP) H/O tubal ligation Family History Maternal Grandmother Diabetes Social History Alcohol intake: current Alcohol intake frequency: does not drink Alcohol type: beer Patient Tobacco Use Status: Former Tobacco user Substance Use Type: Marijuana 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 We thoroughly discussed the procedure itself, including its details, alternatives, and all associated risks. This included but not limited to the following complications such as bleeding, infection, and injury to the vagina, bladder, and vessels, as well as the potential need for transfusion with all its associated risks. Subsequently, the patient sign the consent. Pap smear result: LSIL. Urine test in office = Negative Procedure: During the procedure, the following steps were performed: A speculum was inserted, and acetic acid was applied. Colposcopy was conducted, allowing visualization of the transformation zone. Acetowhite lesions were identified at the 6 o'clock position. Cervical biopsies were obtained from the 6 o'clock position, followed by an endocervical curettage (ECC). Vaginoscopy of the upper vagina revealed no evidence of aceto-white lesions. Hemostasis was achieved using Monsel solution, and the patient tolerated the procedure well. Post-Procedure Instructions: The patient was advised to promptly contact the office or the after hours answering service or go to the emergency room if experiencing a temperature exceeding 100.4?F, abdominal pain, nausea/vomiting, or bleeding. Additionally, the patient was instructed to abstain from vaginal intercourse and bathtub use. The patient confirmed understanding of these instructions. Discharge Instructions: The patient was instructed to schedule a follow-up appointment in 2 weeks for further evaluation and management. Please note that this note was generated using a voice recognition program, and errors may have occurred during product technology scientist. [id number] of cervix including upper vagina with biopsy and ECC Procedure code (CPT) selection complete Assessment & Plan Assessment & Plan (1) ASCUS of cervix with negative high risk HPV: Comment: History of LEEP in 2020 Code(s): R87.610 - Atypical squamous cells of undetermined significance on cytologic smear of cervix (ASC-US) Category: Medical Plan: Since the patient has history of LEEP in 2020 , with Pap showing ascus is with HPV negative, recommend colposcopy. Colpo done, see procedure Orders: Orders AMB Colposcopy Today R87.610 - Atypical squamous cells of undetermined significance on cytologic smear of cervix (ASC-US) Coding Level of Care Code Procedure Only Diagnoses ASCUS of cervix with negative high risk HPV R87.610 CPT Codes Colposcopy - CPT: 29059-[id number] of cervix including upper vagina with biopsy and ECC ([id number])
[2024-06-21 13:15] VITALS: BP 110/66; BMI 28.6
== END 2024-06-21 13:41 | disposition home or self-care (01) ==
LOC: HO.HWS 12:52
PROVIDERS: PCP Internal Medicine; Visit Provider Obstetrics & Gynecology
DX: R87.610 Atypical squamous cells of undetermined significance on cytologic smear of cervix (ASC-US) (principal); Z32.02 Encounter for pregnancy test, result negative
CPT/HCPCS: 57454

== ENCOUNTER 2024-06-21 12:52 | Outpatient (REF) | payer OTHER, SELFPAY | END 2024-06-21 12:53 | disposition home or self-care (01) | LOC: HO.LNP 12:52 | PROVIDERS: PCP Internal Medicine; Visit Provider Obstetrics & Gynecology | DX: R87.610 Atypical squamous cells of undetermined significance on cytologic smear of cervix (ASC-US) (principal) | CPT/HCPCS: 57454; 81025; 88305 ==

== ENCOUNTER 2024-07-08 14:26 | Outpatient (AMB) | payer OTHER, SELFPAY ==
[2024-07-08 14:29] VITALS: BMI 28.6
--- NOTE | 2024-07-08 14:29 | MHC.OFFVIS ---
Vital Signs 07/08/24 14:29 Height 5 ft 2 in Weight 156 lb 8.451 oz BMI 28.6 Intake Visit Reasons: Colpo Results Allergies amoxicillin [Amoxicillin] Allergy (Mild, Verified 06/21/24 13:16) HIVES, rash Penicillins Allergy (Mild, Verified 06/21/24 13:16) HIVES propranolol Adverse Reaction (Unknown, Verified 06/21/24 13:16) Wheezing HPI Comments Details: Presenting post colpo for follow-up. The patient is doing well with no complaints. The pathology showed the following: A. Endocervix, curettage: Inflamed cervical transformation zone mucosa, endocervical and squamous epithelium with reactive changes. B. 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 Sexual orientation: Straight/Heterosexual Gender identity: Female Female Reproductive History Menstrual Age of Menarche: 14 Review of Systems Const All systems reviewed & are unremarkable except as noted in HPI and below Reports as per HPI and Reports no additional complaints GI Reports no additional complaints Reports no additional complaints Physical Exam Vital Signs: BMI result Body Mass Index 28.6 Assessment & Plan Assessment & Plan (1) ASCUS of cervix with negative high risk HPV: Comment: History of LEEP in 2019 Code(s): R87.610 - Atypical squamous cells of undetermined significance on cytologic smear of cervix (ASC-US) Category: Medical Plan: Discussed with the patient the pathology results of the colposcopy biopsies & endocervical curettage (negative). Discussed with the patient the sensitivity specificity, positive and negative predictive value in detecting cervical cancer in addition discussed the regression, persistence and progression rates. Recommended co-testing in 12 months, if cytology and or HPV are abnormal will proceed was colposcopy biopsy and endocervical curettage. Instructions given to the patient to schedule a co test appointment in 1 year. All questions answered the patient verbalized understanding. Coding Level of Care Code Est Pt Level 3 (55376) Diagnoses ASCUS of cervix with negative high risk HPV R87.610
== END 2024-07-08 14:35 | disposition home or self-care (01) ==
PROVIDERS: PCP Internal Medicine; Visit Provider Obstetrics & Gynecology
DX: R87.610 Atypical squamous cells of undetermined significance on cytologic smear of cervix (ASC-US) (principal)
CPT/HCPCS: 99213

== ENCOUNTER → 2024-07-08 14:26 | Outpatient (BNVA) | payer OTHER, SELFPAY | PROVIDERS: PCP Internal Medicine; Visit Provider Obstetrics & Gynecology ==

== ENCOUNTER 2024-10-29 11:25 | Outpatient (REF) | payer OTHER, SELFPAY ==
[2024-10-29 11:28] LABS: MANUAL DIFF FLAG NO
[2024-10-29 11:48] LABS: Basophils Absolute Auto 0.1 X10*3/uL (0.0-0.2); Basophils Percent Auto 0.9 % (0-2); Eosinophils Absolute Auto 0.7 X10*3/uL (0.0-0.4); Eosinophils Percent Auto 9.2 % (0-4); Hemoglobin 15.1 g/dl (12.0-16.0); Imm Gran Abs Auto 0.02 X10*3/uL (0.00-0.03); Imm Gran Pct Auto 0.2 % (0.0-0.4); Lymphocytes Absolute Auto 1.9 X10*3/uL (1.2-4.9); Lymphocytes Percent Auto 23.8 % (20-40); Mean Corpuscular HGB Conc 34.3 g/dl (31.0-35.0); Mean Corpuscular Volume 96.1 fL (80.0-98.0); Mean Platelet Volume 9.8 fL (9.4-12.3); Monocytes Absolute Auto 0.9 X10*3/uL (0.1-1.2); Monocytes Percent Auto 10.9 % (2-11); Neutrophils Absolute Auto 4.4 x10*3/uL (2.0-8.3); Platelet Count 253 X10*3/uL (160-400); Red Blood Count 4.58 X10*6/uL (4.20-5.50); Red Cell Distribution Width 11.9 % (11.0-16.0)
[2024-10-29 11:51] LABS: Appearance Urine Clear; Color Urine Yellow; Glucose Urine UA Negative (Negative); Leukocyte Esterase Urine Negative (Negative); Nitrite Urine Negative (Negative); PH 5.5 (5.0-9.0); Specific Gravity - Urine 1.015 (1.005-1.025); Urine Blood Negative (Negative); Urine Ketones Negative (Negative); Urine Protein Negative (Neg-Trace)
[2024-10-29 12:12] LABS: Alanine Aminotransferase 23 U/L (0-31); Albumin Level 4.4 g/dL (3.5-5.0); Alkaline Phosphatase 56 U/L (39-117); Anion Gap 13 (12-20); Aspartate Amino Transferase 22 U/L (5-31); Bilirubin Total 0.3 mg/dL (0.0-1.0); Blood Urea Nitrogen 12 mg/dL (9-16); Calcium 9.4 mg/dL (8.4-10.2); Carbon Dioxide 24 mmol/L (22-29); Chloride 111 mmol/L (96-108); Cholesterol 215 mg/dL (<200); Estimated Glomerular Filt Rate > 60; Glucose Fasting 87 mg/dL (60-99); HDL Cholesterol 50 mg/dL (>40); LDL Cholesterol Calculated 144 mg/dL (<100); Potassium 4.5 mmol/L (3.3-5.1); Sodium 143 mmol/L (135-145); Total Protein 7.3 g/dL (6.5-8.0); Triglycerides 108 mg/dL (<150)
[2024-10-29 12:17] LABS: TSH reflex Free T4 0.32 uIU/mL (0.32-4.0)
--- OUTSIDE RECORDS SUMMARY | 2024-11-03 07:57 | XMS_ITS ---
Author Organization Francesco Lucero MD Address [address] [place] [phone] Care Team Providers Care Cage Maker Machine Name Role Phone Francesco Lucero Primary Care Provider REASON FOR VISIT New contact number Encounters Encounter Location Date Provider Diagnosis Francesco Lucero MD [address] [place] [phone] 10/25/2024 Francesco Lucero PLAN OF TREATMENT Next Appt Details Provider Name:Francesco salas, 11/04/2024 08:00:00 AM, [address] [facility], Suite [facility], [place], [place], [phone],
--- OUTSIDE RECORDS SUMMARY | 2024-11-03 07:57 | XMS_ITS ---
Author Organization Francesco Lucero MD Address [address] [place], [place] [phone] Care Team Providers Care Allopathic Doctor Name Role Phone Francesco Lucero Primary Care Provider RESULTS Component Value Reference Range Notes Complete Blood Count Auto Di ff Reviewed date:10/29/2024 12:27:58 PM Interpretation: Performing Lab:[facility], [address] [place] [phone] Notes/Report: White Blood Count 8.0 4.8-10.8 X10*3/uL Red Blood Count 4.58 4.20-5.50 X10*6/uL Hemoglobin 15.1 12.0-16.0 g/dl Hematocrit 44.0 37.0-47.0 % Mean Corpuscular Volume 96.1 80.0-98.0 fL Mean Corpuscular Hemoglobin 33.0 27.0-33.0 pg Mean Corpuscular HGB Conc 34.3 31.0-35.0 g/dl Red Cell Distribution Width 11.9 11.0-16.0 % Platelet Count 253 160-400 X10*3/uL Mean Platelet Volume 9.8 9.4-12.3 fL Neutrophils Percent Auto 55.0 45-73 % Imm Gran Pct Auto 0.2 0.0-0.4 % Lymphocytes Percent Auto 23.8 20-40 % Monocytes Percent Auto 10.9 2-11 % Eosinophils Percent Auto 9.2 0-4 % Basophils Percent Auto 0.9 0-2 % NRBC Pct Auto 0.0 0.0-0.2 /100WBC Neutrophils Absolute Auto 4.4 2.0-8.3 x10*3/u L Imm Gran Abs Auto 0.02 0.00-0.03 X10*3/uL Lymphocytes Absolute Auto 1.9 1.2-4.9 X10*3/u L Monocytes Absolute Auto 0.9 0.1-1.2 X10*3/uL Eosinophils Absolute Auto 0.7 0.0-0.4 X10*3/u L Basophils Absolute Auto 0.1 0.0-0.2 X10*3/uL NRBC Abs Auto 0.000 0.0-0.012 X10*3/uL Comprehensive [place]. Panel Fa st Reviewed date:10/29/2024 12:29:22 PM Interpretation: Performing Lab:[address] [phone] Notes/Report: Sodium 143 135-145 mmol/L Potassium 4.5 3.3-5.1 mmol/L Chloride 111 96-108 mmol/L Carbon Dioxide 24 22-29 mmol/L Anion Gap 13 12-20 Blood Urea Nitrogen 12 9-16 mg/dL Creatinine 0.82 0.5-1.4 mg/dL Estimated Glomerular Filt Rate > 60 Chronic Kidney Disease: Estimated GFR < 60 mL/min/1.73m2 Severe Kidney Disease: Estimated GFR < 15 mL/min/1.73m2 Glucose Fasting 87 60-99 mg/dL Calcium 9.4 8.4-10.2 mg/dL Bilirubin Total 0.3 0.0-1.0 mg/dL Aspartate Amino Transferase 22 5-31 U/L Alanine Aminotransferase 23 0-31 U/L Total Protein 7.3 6.5-8.0 g/dL Albumin Level 4.4 3.5-5.0 g/dL Alkaline Phosphatase 56 39-117 U/L Lipid Panel Reviewed date:10/29/2024 12:26:40 PM Interpretation: Performing Lab:[address] [phone] Notes/Report: Triglycerides 108 <150 mg/dL Desirable Triglyceride: less than 150 mg/dL Borderline High Triglyceride 150-199 mg/dL High Triglyceride: 200-499 mg/dL Very High Triglyceride: greater than or equal to 5OO mg/dL Cholesterol 215 <200 mg/dL Desirable Cholesterol: less than 200 mg/dL Borderline High Cholesterol: 200-239 mg/dL High Cholesterol: greater than 239 mg/dL LDL Cholesterol Calculated 144 <100 mg/dL Desirable LDL: less than 100 mg/dL Near Optimal/Above Optimal LDL: 110-129 mg/dL Borderline High LDL: 130-159 mg/dL High LDL: 160-189 mg/dL Very High LDL: greater than or equal to 190 mg/dL HDL Cholesterol 50 >40 mg/dL Desirable HDL: greater than 40 mg/dL Note: This HDL assay may give artificially low results in patients with liver disease. TSH reflex Free T4 Reviewed date:10/29/2024 12:28:07 PM Interpretation: Performing Lab:[facility], [address] [place] [phone] Notes/Report: TSH reflex Free T4 0.32 0.32-4.0 uIU/mL REASON FOR VISIT fasting year labs Encounters Encounter Location Date Provider Diagnosis Francesco Lucero MD [address] [place] [address] [address] [place], [place] [phone] 10/29/2024 Francesco Lucero Blood tests for routine general physical examination Z00.00 and Acquired hypothyroidism E03.9 ASSESSMENTS Encounter Date Diagnosis Assessment Notes Treatment Notes Treatment Clinical Notes 10/29/2024 Blood tests for routine general physical examination (ICD-10 - Z00.00) 10/29/2024 Acquired hypothyroidism (ICD-10 - E03.9) PLAN OF TREATMENT Pending Test Test Name Order Date UA ClnCatch+Micro w/rflx Cult 10/29/2024 Next Appt Details Provider Name:Francesco salas, 11/04/2024 08:00:00 AM, [address] [place] [address], [address], [place], [place], [phone],
--- OUTSIDE RECORDS SUMMARY | 2024-11-03 07:57 | XMS_ITS ---
Author Organization Francesco Lucero MD Address [address] [place] [phone] Care Team Providers Care Perch Machine Inspector Name Role Phone Francesco Lucero Primary Care Provider [phone] REASON FOR VISIT ANNUAL Encounters Encounter Location Date Provider Diagnosis Francesco Lucero MD [address] [facility] [address] [place] [phone] 07/22/2024 Francesco Lucero PLAN OF TREATMENT Next Appt Details Provider Name:Francesco salas, 11/04/2024 08:00:00 AM, [address] [facility], [address], [place], [place], [phone],
--- OUTSIDE RECORDS SUMMARY | 2024-11-03 07:57 | XMS_ITS | Patient Health Record ---
Author Organization Francesco Lucero MD Address [address] [place], [place] [id number] Care Team Providers Care [employer] Crewmember Name Role Phone Francesco Lucero Primary Care Provider ALLERGIES Allergen (clinical drug ingredient) Drug/Non Drug Allergy documented on EMR Reaction Allergy Type Onset Date Status amoxicillin amox (uncoded) rash Allergy Act arvin penicillin (uncoded) rash Allergy Active RESULTS Component Value Reference Range Notes MM tomosynthesis screening B I Reviewed date:12/30/2023 12:31:10 PM Interpretation: Performing Lab: Notes/Report: [address] [place] [address] Mammography Report Signed Patient: Marietta Cortez MR#: [id number] 11 : 1980 Acct:[id number] Age/Sex: 43 / F ADM Date: 12/30/23 Loc: HO.MAMMO Attending Dr: Francesco Lucero MD Ordering Physician: Lexie Hampton CNM Results: 1Nega tive Date of Service: 12/30/23 Follow Up: 1 Year From Orig inal Mammogram Procedure(s): MM tomosynthesis screening BI Accession Number(s): [id number] cc: Francesco Lucero MD; Lexie Hampton CNM EXAMINATION: MM SCREENING DIGITAL BREAST TOMOSYNTHESIS, BILATERAL CLINICAL INFORMATION: Screening. Asymptomatic. COMPARISON: Mammography: This study is compared with prior exams dating back to 2020. TECHNIQUE: Digital breast tomosynthesis is performed in both the craniocaudal and mediolateral oblique views along with computer-aided detection (CAD). Synthesized 2D images are generated from the tomosynthesis. FINDINGS: There are scattered areas of fibroglandular density (ACR BI-RADS breast composition Category b). There are no significant masses, abnormal calcifications, or other abnormalities. MM/MM tomosynthesis screening BI IMPRESSION: No mammographic evidence of malignancy. ASSESSMENT: BI-RADS BI-RADS 1 - Negative RECOMMENDATION: Routine annual mammography screening. 1 year F/U This examination should not preclude the clinical evaluation of a suspicious palpable abnormality. This patient's information was entered into a reminder system with a target due date for their next mammogram. Dictated By: Arti Raymundo MD Signed By: <Electronically signed by Arti Raymundo MD in OV> 12/30/2344 DD/ 8 TD/TT: Commercial Construction Superintendent: Free T4 (Free Thyroxine) Reviewed date:01/24/2024 05:50:30 PM Interpretation: Performing Lab:[address] [address] Notes/Report: Free T4 (Free Thyroxine) 1.23 0.71-1.85 ng/dL Hold Gold Reviewed date:01/23/2024 03:59:57 PM Interpretation: Performing Lab:[address] [address] Notes/Report: Hold Gold See Note Specimen held untested for 24 hours; Call to request Chemistry testing. TSH reflex Free T4 Reviewed date:01/26/2024 04:48:45 PM Interpretation: Performing Lab:[address] [address] Notes/Report: TSH reflex Free T4 0.02 0.32-4.0 uIU/mL XR chest 2V Reviewed date:03/03/2024 04:09:54 PM Interpretation: Performing Lab: Notes/Report: [address] [address] XRay Report Signed Patient: Marietta Cortez MR#: [id number] 11 : 1980 Acct:[id number] Age/Sex: 43 / F ADM Date: 02/26/24 Loc: [facility] Attending Dr: Francesco Lucero MD Ordering Physician: Francesco Lucero MD Date of Service: 02/26/24 Procedure(s): XR chest 2V Accession Number(s): [id number] cc: Francesco Lucero MD EXAMINATION: XR CHEST CLINICAL INFORMATION: Asthma. Difficulty breathing COMPARISON: 12/05/2023 TECHNIQUE: 2 views of the chest were obtained. FINDINGS: No significant abnormality is noted involving the heart, lungs, mediastinum, bony thorax or soft tissues. No pneumothorax or pneumomediastinum. XR/XR chest 2V IMPRESSION: No active disease. Dictated By: Phoenix Freire MD Signed By: <Electronically signed by Phoenix Freire MD in OV> 03/03/24 0838 DD/ 1502 TD/TT: Commercial Construction Superintendent: Brenda Matta Reviewed date:05/07/2024 12:19:46 PM Interpretation: Performing Lab:[address] [address] Notes/Report: Brenda Matta See Note Specimen held untested for 24 hours; Call to request Chemistry testing. TSH reflex Free T4 Reviewed date:05/07/2024 12:30:28 PM Interpretation: Performing Lab:[address] [address] Notes/Report: TSH reflex Free T4 0.50 0.32-4.0 uIU/mL CT NG by PCR Reviewed date:06/04/2024 12:20:46 PM Interpretation: Performing Lab:[address] [address] Notes/Report: Vaginal CT PCR NOT DETECTED Not Detect. A not detected test result does not exclude the possibility of infection because test results can be affected by improper specimen collection, concurrent antibiotic therapy, or the number of organisms in the specimen which may be below the sensitivity of the test. As with many diagnostic tests, results from the Xpert CT/NG assay should be interpreted in conjunction with other laboratory and clinical data available to the clinician. Xpert CT/NG performance has not been evaluated in patients less than 14 years of age. The assay should not be used for the evaluation of suspected sexual abuse or for other medico-legal indications. Additional testing is recommended in any circumstance when false positive or false negative results could lead to adverse medical, social or psychological consequences. NG PCR NOT DETECTED Not Detect. A not detected test result does not exclude the possibility of infection because test results can be affected by improper specimen collection, concurrent antibiotic therapy, or the number of organisms in the specimen which may be below the sensitivity of the test. As with many diagnostic tests, results from the Xpert CT/NG assay should be interpreted in conjunction with other laboratory and clinical data available to the clinician. Xpert CT/NG performance has not been evaluated in patients less than 14 years of age. The assay should not be used for the evaluation of suspected sexual abuse or for other medico-legal indications. Additional testing is recommended in any circumstance when false positive or false negative results could lead to adverse medical, social or psychological consequences. Bacterial Vaginosis Panel Reviewed date:06/04/2024 12:21:15 PM Interpretation: Performing Lab:[address] [address] Notes/Report: Trichomonas vaginalis PCR NOT DETECTED Not Detect Bacterial Vaginosis PCR NEGATIVE Negative The BV organism targets of the Xpert Xpress MVP test can be commensal in women; Xpert Xpress MVP positive results for bacterial vaginosis should be considered in conjunction with other clinical and patient information to determine the disease status. Organisms that are not detected by the Xpert Xpress MVP test have also been reported to be associated with BV and aerobic vaginitis. The Xpert Xpress MVP test performance has not been evaluated in patients under the age of 14. Nohemi Group PCR NOT DETECTED Not Detect Nohemi glab krusei PCR NOT DETECTED Not Detect PAP + HPV E6/E7 rfx 18/45 Reviewed date:06/09/2024 02:08:26 PM Interpretation: Performing Lab:[address] [address] Notes/Report: SEE SCANNED RESULTS IN EMR Was previous PAP abnormal? Yes If PAP abnormal, please specify: 2003 leep Clinical Information: routine Collection Date: 06/03/24 High risk HPV with 16 18 genotyping? Y Reflex HPV any abnormal diagnosis? Y Reflex HPV if ASCUS only? N High Risk HPV (any diagnosis)? Y LMP: 05/22/24 Date of previous PAP 10/15/21 neg,neg Performed by: daisy Source: cervical ROUTINE [id number] CERVIX 10/15/21 HPV 16 RNA TNP HPV 18/45 RNA TNP HPV mRNA E6/E7 Not Detected Not Detected Methodology: Road Supervisor-Mediated Amplification This assay detects E6/E7 viral messenger RNA (mRNA) from 14 high-risk HPV types (16,18,31,33,35,39,45,51, 52,56,58,59,66,68). Cervical sources are required for HPV testing. If a vaginal source from a patient who has had a total hysterectomy with removal of cervix was submitted, please contact the testing laboratory for alternative testing options. For additional information, please refer to http://education.[employer]faq/ZCA729y4 (This link if provided for information/ educational purposes only.) THIS TEST WAS PERFORMED AT: [facility] [address] [place] [phone] LUDY TUCKER MD Thin Prep Source SEE NOTE Cervix Report Status TNP Clinical Information SEE NOTE Routine exam LMP SEE NOTE 05/22/2024 Previous PAP SEE NOTE 10/15/2021 Previous Biopsy Date SEE NOTE NONE GI MELISSA State of Adequacy SEE NOTE Satisfactory for evaluation. Endocervical/transformati on zone component present. General Categorization SEE NOTE Cytol ogy Results: Epithelial Cell Abnormality Interpretation/Result SEE NOTE Atypical Squamous Cells of Undetermined Significance (ASC-US) Cytology Comment SEE NOTE This Pap test has been evaluated with computer assisted technology. Maintenance Shop Laborer SEE NOTE LETI, CT(ASCP) CT screening location: [place] [address] Review Maintenance Shop Laborer TNP Pathologist SEE NOTE Rowena Cook D.O. Board Certified in Anatomic, Clinical and Cytopathology (electronic signature) Consulting Pathologist [facility] [address] [place] [phone] PAP Infection TNP See Note SEE NOTE EXPLANATORY NOTE: The Pap is a screening test for cervical cancer. It is not a diagnostic test and is subject to false negative and false positive results. It is most reliable when a satisfactory sample, regularly obtained, is submitted with relevant clinical findings and history, and when the Pap result is evaluated along with historic and current clinical information. Pathology Reviewed date:06/24/2024 12:45:35 PM Interpretation: Performing Lab:[facility], [address] [place] [phone] Notes/Report: Brenda Paxton Reviewed date:10/29/2024 12:29:02 PM Interpretation: Performing Lab:[facility], [address] [place] [phone] Notes/Report: Brenda Matta See Note Specimen held untested for 24 hours; Call to request Chemistry testing. UA CC w/rflx Micro + Cult Reviewed date:10/29/2024 12:31:30 PM Interpretation: Performing Lab:[facility], [address] [place] [phone] Notes/Report: Urine, Clean Catch Color Urine Yellow Appearance Urine Clear PH 5.5 5.0-9.0 Glucose Urine UA Negative Negative mg/dL Urine Blood Negative Negative Specific [place] - Urine 1.015 1.005-1.025 Urine Protein Negative Neg-Trace mg/dL Urine Ketones Negative Negative mg/dL Nitrite Urine Negative Negative Leukocyte Esterase Urine Negative Negative Complete Blood Count Auto Di ff Reviewed date:10/29/2024 12:27:58 PM Interpretation: Performing Lab:[facility], [address] [place] [phone] Notes/Report: White Blood Count 8.0 4.8-10.8 X10*3/uL [...] NRBC Abs Auto 0.000 0.0-0.012 X10*3/uL Comprehensive [place]. Panel Fa st Reviewed date:10/29/2024 12:29:22 PM Interpretation: Performing Lab:[address] [address] Notes/Report: Sodium 143 135-145 mmol/L Potassium 4.5 [...] Panel Reviewed date:10/29/2024 12:26:40 PM Interpretation: Performing Lab:[address] [address] Notes/Report: Triglycerides 108 <150 mg/dL Desirable Triglyceride: [...] T4 Reviewed date:10/29/2024 12:28:07 PM Interpretation: Performing Lab:[facility], [address] [place] [phone] Notes/Report: TSH reflex Free T4 0.32 0.32-4.0 uIU/mL REASON FOR REFERRAL No Information MEDICATIONS Medication SIG (Take, Route, Frequency, Duration) Notes Start Date End Date Status Propranolol HCl ER 80 MG TAKE 1 CAPSULE BY MOUTH EVERY DAY FOR 30 DAYS for 90 Not-Taking Escitalopram Oxalate 20 MG TAKE 1 TABLET BY MOUTH EVERY DAY FOR 30 DAYS for 90 Active Ibuprofen 800 MG 1 tablet with food o r milk as needed Orally Three times a day for 10 days 12/04/2020 Not-Taking Levothyroxine Sodium 112 MCG take 1 tablet by mouth every day in the morning on an empty stomach Orally Once a day Active Ventolin HFA * 108 (90 Base) MCG/ACT 2 puffs as needed Inhalation every 4 hrs for 30 days 05/23/2014 Not-Taking Breo Ellipta 200-25 MCG/ACT 1 puff Inhalation Once a day 02/26/2024 Active Albuterol Sulfate HFA 108 (90 Base) MCG/ACT INHALE 1 PUFF BY MOUTH EVERY 4 HOURS NEEDED FOR 30 DAYS for 20 Active Zomig 2.5 MG 1 tablet Orally Once a day 01/23/2023 Active IMMUNIZATIONS Vaccine Route Administration Date Status Comme nts Fluarix Quadrivalent IM Intramuscular 08/12/2014 Administe red TDaP Unknown 11/28/2009 Administered pt was given when middle son was born. Fluarix Quadrivalent IM Intramuscular 01/02/2018 Administe red Tetanus Unknown 11/28/2009 Administered Fluarix Quadrivalent Unknown 10/24/2020 Administered Omkar dangelo did have it here, I have been off by 1 since 10-24-2020, spoke to the patient today(01-01-21) SARS-COV-2 Moderna Unknown 03/17/2021 Administered SARS-COV-2 Moderna Unknown 04/14/2021 Administered SARS-COV-2 Moderna Unknown 11/12/2021 Administered SARS-COV-2 Moderna Unknown 03/17/2021 Administered SARS-COV-2 Moderna Unknown 04/14/2021 Administered SARS-COV-2 Moderna Unknown 11/12/2021 Administered Fluarix Quadrivalent IM Intramuscular 08/22/2022 Administe red Flu Vaccine Unknown 08/12/2014 Pending SOCIAL HISTORY Tobacco Use: Social History Observation Description Date Details (start date - stop date) Never Smoker NA - NA Sex Assigned At : Social History Observation Description Sex Assigned At Unknown Tobacco Use/Smoking Question Answer Notes Patient is a nonsmoker Additional Findings: Tobacco Non-User Cu rrent non-smoker, currently using no form of tobacco Alcohol Screen Question Answer Notes Did you have a drink containing alcohol in the p ast year? No Points 0 Interpretation Negative PROBLEMS Problem Type ICD Code Onset Dates Problem Status W/U Status Risk SNOMED Code Notes Problem Anxiety (F41.9) Active confirmed 070691 02 Problem Acquired hypothyroidism (E03.9) Active confirmed 479590252 Problem Mild intermittent asthma without complication (J45.20) Active confirmed 391654630 Problem Alcohol abuse (F10.10) Active confirmed Alcohol abuse (73588004) Problem Migraine with aura and without status migrainosus, not intractable (G43.109) Active confirmed 0331683 Problem Vaginal bleeding (N93.9) Active confirmed 156662515 Problem Obsessive thinking (F42.8) Active confirmed Obsessive-com pulsive disorder (135968501) VITAL SIGNS Blood pressure diastolic 68 mm Hg 05/20/2024 laurie ght is up 3 pounds since 03-11-24 Height 62 in 05/20/2024 weight is up 3 pounds since 03-11-24 Blood pressure systolic 104 mm Hg 05/20/2024 weig ht is up 3 pounds since 03-11-24 Weight 167 lbs 05/20/2024 weight is up 3 pounds since 03-11-24 BMI 30.54 kg/m2 05/20/2024 weight is up 3 pounds since 03-11-24 Encounters Encounter Location Date Provider Diagnosis Francesco Lucero MD [address] [place] [id number] 07/22/2024 Francesco Lucero MD [address] [place] [address] [id number] 07/15/2024 Francesco Lucero MD [address] [place] [address] [id number] 01/23/2024 Francesco Lucero Acquired hypothyroidism E03.9 Francesco Lucero MD [address] [place] [address] [id number] 10/29/2024 Francesco Lucero Blood tests for routine general physical examination Z00.00 and Acquired hypothyroidism E03.9 Francesco Lucero MD [address] [place] [address] [id number] 05/07/2024 Francesco Lucero Acquired hypothyroidism E03.9 Francesco Lucero MD [address] [place] [address] [id number] 04/29/2024 Francesco Lucero Acquired hypothyroidism E03.9 Francesco Lucero MD [address] [place] [address] [id number] 05/20/2024 Francesco Lucero Acquired hypothyroidism E03.9 and Anxiety F41.9 Francesco Lucero MD [address] [place] [address] [id number] 02/26/2024 Francesco Lucero Mild intermittent asthma without complication J45.20 and Persistent cough R05.3 Francesco Lucero MD [address] [place] [address] [id number] 03/11/2024 Francesco Lucero Migraine with aura a nd without status migrainosus, not intractable G43.109 and Mild intermittent asthma without complication J45.20 Francesco Lucero MD [address] [place] [address] [id number] 01/26/2024 Francesco Lucero Acquired hypothyroidism E03.9 Francesco Lucero MD [address] [place] [address] [id number] 02/03/2024 Francesco Lucero MD [address] [place] [address] [id number] 02/27/2024 Francesco Lucero MD [address] [place] [address] [id number] 05/07/2024 Francesco Lucero MD [address] [place] [address] [id number] 01/08/2024 Francesco Lucero Mild intermittent asthma without complication J45.20 Francesco Lucero MD [address] [place] [address] [id number] 11/05/2023 Francesco Lucero Anxiety F41.9 Francesco Lucero MD [address] [place] [address] [id number] 10/25/2024 Francesco Lucero ASSESSMENTS Encounter Date Diagnosis Assessment Notes Treatment Notes Treatment Clinical Notes 01/23/2024 Acquired hypothyroidism (ICD-10 - E03.9) 10/29/2024 Acquired hypothyroidism (ICD-10 - E03.9) 10/29/2024 Blood tests for routine general physical examination (ICD-10 - Z00.00) 05/07/2024 Acquired hypothyroidism (ICD-10 - E03.9) 04/29/2024 Acquired hypothyroidism (ICD-10 - E03.9) 05/20/2024 Anxiety (ICD-10 - F41.9) feeling well and not anxious any longer, will continue current regiment 05/20/2024 Acquired hypothyroidism (ICD-10 - E03.9) doing well on present meds, will continue current regiment 02/26/2024 Mild intermittent asthma without complication (ICD-10 - J45.20) patient verbalized understaneed results from chest xray from november/ scanned in chart/order given to patient 02/26/2024 Persistent cough (ICD-10 - R05.3) 03/11/2024 Migraine with aura and without status migrainosus, not intractable (ICD-10 - G43.109) doing well on no meds. waiting to get repeat mri. unlikely that it is demylinating disorder since she has no symptoms 01/26/2024 Acquired hypothyroidism (ICD-10 - E03.9) 01/08/2024 Mild intermittent asthma without complication (ICD-10 - J45.20) patient verbalized understanding of medications 11/05/2023 Anxiety (ICD-10 - F41.9) 03/11/2024 Mild intermittent asthma without complication (ICD-10 - J45.20) finally doing great, will continue current regiment PLAN OF TREATMENT Pending Test Test Name Order Date Electrocardiogram (EKG) 09/16/2011 MRI BRAIN NO CONTRAST 03/03/2023 XR CHEST 2 VIEW PA & LAT 02/26/2024 UA ClnCatch+Micro w/rflx Cult 10/29/2024 TSH (THYROID STIMULATING HORMONE) 2017 TSH (THYROID STIMULATING HORMONE) 2018 Future Test Test Name Order Date MRI BRAIN NO CONTRAST 09/17/2023 Next Appt Details Provider Name:Francesco Pressley ier, 11/04/2024 08:00:00 AM, [address] [facility], [address], [place], [place], [phone], Insurance Providers Payer Name Payer Address Payer Phone Subscriber Number Group Number Insured Name Patient Relationship to Insured Coverage Start Date Coverage End Date [address] [place] [phone] [id number] Marietta Cortez Self - patient is the insured MEDICAL (GENERAL) HISTORY Medical History History ICD Code appt in January [employer] , [employer]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 Soler
== END 2024-10-29 11:26 | disposition home or self-care (01) ==
LOC: HO.LNP 11:25
PROVIDERS: Visit Provider Internal Medicine
DX: Z00.00 Encounter for general adult medical examination without abnormal findings (principal); E03.9 Hypothyroidism, unspecified
CPT/HCPCS: 80053; 80061; 81003; 84443; 85025

== ENCOUNTER 2024-12-30 21:03 | Emergency (ER) | payer OTHER, SELFPAY ==
--- NOTE | ~2024-12-30 | XR_ITS ---
CLINICAL HISTORY: sob 2 view chest x-ray Comparison: DX/SR - XR CHEST 2V - 02/26/24 15:04 EDT Findings: No consolidation or effusion. Heart size is normal. No acute fracture. IMPRESSION: 1. No acute findings. This document has been electronically signed by: Belinda Medina MD on 12/30/2024 22:07:15
[2024-12-30 21:10] VITALS: BP 122/70; BP 127/77; PULSE 100; PULSE 103; RESP 20; TEMP 36.9; O2SAT 98; BMI 31.1
[2024-12-30 22:05] LABS: MANUAL DIFF FLAG NO
[2024-12-30 22:08] LABS: Basophils Absolute Auto 0.1 X10*3/uL (0.0-0.2); Eosinophils Absolute Auto 0.7 X10*3/uL (0.0-0.4); Eosinophils Percent Auto 5.9 % (0-4); Hematocrit 43.4 % (37.0-47.0); Hemoglobin 15.1 g/dl (12.0-16.0); Imm Gran Abs Auto 0.04 X10*3/uL (0.00-0.03); Imm Gran Pct Auto 0.3 % (0.0-0.4); Lymphocytes Absolute Auto 1.9 X10*3/uL (1.2-4.9); Lymphocytes Percent Auto 15.3 % (20-40); Mean Corpuscular HGB Conc 34.8 g/dl (31.0-35.0); Mean Corpuscular Hemoglobin 32.7 pg (27.0-33.0); Mean Corpuscular Volume 93.9 fL (80.0-98.0); Mean Platelet Volume 9.5 fL (9.4-12.3); Monocytes Absolute Auto 0.7 X10*3/uL (0.1-1.2); Monocytes Percent Auto 5.4 % (2-11); Neutrophils Percent Auto 72.1 % (45-73); Platelet Count 275 X10*3/uL (160-400); Red Blood Count 4.62 X10*6/uL (4.20-5.50); White Blood Count 12.5 X10*3/uL (4.8-10.8)
--- NOTE | 2024-12-30 22:08 | ED.SOB ---
HPI - SOB/Dyspnea General Chief Complaint: Dyspnea Stated Complaint: sob, on duo neb Time Seen by Provider: 12/30/24 22:05 Source: patient Mode of arrival: ambulatory Limitations: no limitations History of Present Illness ED Provider: HPI Narrative: Patient's history of asthma been sick for last 3 weeks wheezing all the time using her inhaler more than usual has a dry cough no nasal congestion no fever no chills patient does vape patient does get sick like this once your in the season changes Related Data Home Medications ?Medication ?Instructions ?Recorded ?Confirmed escitalopram oxalate 20 mg tablet 30 mg PO DAILY 06/18/23 06/18/23 levothyroxine 150 mcg tablet 150 mcg PO QAM 06/18/23 06/18/23 Previous Rx's ?Medication ?Instructions ?Recorded magnesium oxide 400 mg (241.3 mg 400 mg PO BEDTIME 30 days #30 tabs 12/15/23 magnesium) tablet rizatriptan 10 mg tablet 5 - 10 mg (0.5 - 1 x 10 mg) PO Q2H 04/30/24 PRN migraine headache 21 days #12 tabs riboflavin (vitamin B2) 400 mg 400 mg PO DAILY 30 days #30 tabs 05/25/24 tablet amitriptyline 10 mg tablet 10 mg PO BEDTIME 30 days #30 tabs 10/26/24 norethindrone (contraceptive) 0.35 0.35 mg PO DAILY #84 tabs 11/04/24 mg tablet albuterol sulfate 90 mcg/actuation 2 puff inhalation Q6H PRN 12/30/24 aerosol inhaler shortness of breath or wheezing #8.5 grams benzonatate 200 mg capsule 200 mg PO TID PRN cough #30 caps 12/30/24 prednisone 20 mg tablet 40 mg (2 x 20 mg) PO DAILY #10 tabs 12/31/24 Allergies Allergy/AdvReac Type Severity Reaction Status Date / Time amoxicillin [Amoxicillin] Allergy Mild HIVES, rash Verified 12/30/24 21:15 Penicillins Allergy Mild HIVES Verified 12/30/24 21:15 propranolol AdvReac Unknown Wheezing Verified 12/30/24 21:15 Review of Systems Review of Systems: Yes all other systems are reviewed and are negative PMFSH Past Medical History Medical History (Updated 12/30/24 @ 23:59 by Nate Cuevas MD) Asthma Migraine with aura Hypothyroidism Surgical History History of loop electrical excision procedure (LEEP) H/O tubal ligation Family History Family History Maternal Grandmother Diabetes Social History Social History Alcohol intake: current Alcohol intake frequency: does not drink Alcohol type: beer Patient Tobacco Use Status: Former Tobacco user Substance Use Type: Marijuana Current occupation: [employer] Sexual orientation: Straight/Heterosexual Gender identity: Female Physical Exam Vital Signs: Vital Signs: Last Vital Signs Temp 97.6 F 12/31/24 00:24 Pulse 97 12/31/24 00:24 Resp 20 12/31/24 00:24 BP 119/74 12/31/24 00:24 Pulse Ox 99 12/31/24 00:24 O2 Del Method Room Air 12/31/24 00:24 BMI result Body Mass Index 31.1 Appearance: Alert. Oriented X3. No acute distress. Eyes: No pallor or icterus ENT: Pharynx normal. Oral Mucosa moist Neck: Normal inspection. Neck supple. CVS: Normal heart rate and rhythm. Pulses normal. Respiratory: No respiratory distress. Equal air entry bilateral, bilateral wheezing with frequent cough no rales Abdomen: Soft and nontender. Bowel sounds are present, no mass palpable, no CVA tenderness Skin: Skin warm and dry. Normal skin color. Normal skin turgor. Extremities: No lower extremity edema. No calf tenderness Neuro: Oriented X 3. Medications Administered Discontinued Medications Generic Name Dose Route Start Last Admin Trade Name Freq PRN Reason Stop Dose Admin Albuterol Sulfate 5 mg/ 0 mg 12/30/24 22:18 12/30/24 22:36 Albuterol/Ipratropium 3 ml INHALE 12/30/24 22:19 1 each ONCE ONE Administration Methylprednisolone Sodium Succinate 125 mg 12/30/24 22:13 12/30/24 22:38 Methylprednisolone Sod Succ 125 Mg/2 Ml Vial IVPUSH 12/30/24 22:14 125 mg ONCE ONE Administration Medical Decision Making Medical Decision Making MDM Narrative: Patient's asthmatic bronchitis chest x-ray negative labs are stable will prescribe steroid and inhaler Lab Data MDM Lab Attestation statement: I reviewed the patient's lab results. 12/30/24 22:01 12/30/24 22:01 Labs: Lab Results 12/30/24 12/30/24 Range/Units 21:32 22:01 WBC 12.5 H (4.8-10.8) X10*3/uL RBC 4.62 (4.20-5.50) X10*6/uL Hgb 15.1 (12.0-16.0) g/dl Hct 43.4 (37.0-47.0) % MCV 93.9 (80.0-98.0) fL MCH 32.7 (27.0-33.0) pg MCHC 34.8 (31.0-35.0) g/dl RDW 12.0 (11.0-16.0) % Plt Count 275 (160-400) X10*3/uL MPV 9.5 (9.4-12.3) fL Immature Gran % (Auto) 0.3 (0.0-0.4) % Neut % (Auto) 72.1 (45-73) % Lymph % (Auto) 15.3 L (20-40) % [place] % (Auto) 5.4 (2-11) % Eos % (Auto) 5.9 H (0-4) % Baso % (Auto) 1.0 (0-2) % Lymph # (Auto) 1.9 (1.2-4.9) X10*3/uL [place] # (Auto) 0.7 (0.1-1.2) X10*3/uL Eos # (Auto) 0.7 H (0.0-0.4) X10*3/uL Baso # (Auto) 0.1 (0.0-0.2) X10*3/uL Abs Immat Gran (auto) 0.04 H (0.00-0.03) X10*3/uL Absolute Neuts (auto) 9.0 H (2.0-8.3) x10*3/uL Absolute Nucleated RBC 0.000 (0.0-0.012) X10*3/uL Nucleated RBC % (auto) 0.0 (0.0-0.2) /100WBC Sodium 137 (135-145) mmol/L Potassium 3.4 D (3.3-5.1) mmol/L Chloride 109 H (96-108) mmol/L Carbon Dioxide 18 L (22-29) mmol/L Anion Gap 13 (12-20) BUN 9 (9-16) mg/dL Creatinine 0.74 (0.5-1.4) mg/dL Estim Creat Clear Calc 92.2 Estimated GFR > 60 Random Glucose 112 (60-115) mg/dL Calcium 8.9 (8.4-10.2) mg/dL Total Bilirubin 0.2 (0.0-1.0) mg/dL AST 23 (5-31) U/L ALT 23 (0-31) U/L Alkaline Phosphatase 60 (39-117) U/L Total Protein 7.5 (6.5-8.0) g/dL Albumin 4.3 (3.5-5.0) g/dL Influenza Type A (PCR) NEGATIVE (Negative) Influenza Type B (PCR) NEGATIVE (Negative) RSV RNA Qual (PCR) NEGATIVE (Negative) SARS-CoV-2 RNA (RT-PCR) NEGATIVE (Negative) Discharge Plan Discharge Clinical Impression: Asthma with exacerbation Patient Disposition: Home, Self-Care Instructions: Asthma (ED) Additional Instructions: Use inhaler and take prednisone as prescribed Cough drops as prescribed Follow with the PCP if not better Prescriptions: New benzonatate 200 mg capsule 200 mg PO TID PRN (Reason: cough) Qty: 30 0RF prednisone 20 mg tablet 40 mg PO DAILY Qty: 10 0RF albuterol sulfate 90 mcg/actuation HFA aerosol inhaler 2 puff inhalation Q6H PRN (Reason: shortness of breath or wheezing) Qty: 8.5 2RF No Action magnesium oxide 400 mg (241.3 mg magnesium) tablet 400 mg PO BEDTIME 30 Days Qty: 30 6RF Rx Instructions: may hold for loose stools rizatriptan 10 mg tablet 5 - 10 mg PO Q2H PRN (Reason: migraine headache) 21 Days Qty: 12 3RF Rx Instructions: max 2 tabs per day or 4 tabs per week riboflavin (vitamin B2) 400 mg tablet 400 mg PO DAILY 30 Days Qty: 30 6RF amitriptyline 10 mg tablet 10 mg PO BEDTIME 30 Days Qty: 30 6RF norethindrone (contraceptive) 0.35 mg tablet 0.35 mg PO DAILY Qty: 84 0RF escitalopram oxalate 20 mg tablet 30 mg PO DAILY levothyroxine 150 mcg tablet 150 mcg PO QAM Interventions: ED Discharge Assessment Last Done: 12/31/24 00:24 Discharge Date/Time: 12/31/24 00:25 Print Language: Bolivian
[2024-12-30 22:23] LABS: Alanine Aminotransferase 23 U/L (0-31); Albumin Level 4.3 g/dL (3.5-5.0); Alkaline Phosphatase 60 U/L (39-117); Anion Gap 13 (12-20); Aspartate Amino Transferase 23 U/L (5-31); Bilirubin Total 0.2 mg/dL (0.0-1.0); Blood Urea Nitrogen 9 mg/dL (9-16); Calcium 8.9 mg/dL (8.4-10.2); Carbon Dioxide 18 mmol/L (22-29); Chloride 109 mmol/L (96-108); Creatinine Clr Calc Pharmacy 92.2; Estimated Glomerular Filt Rate > 60; Glucose Random 112 mg/dL (60-115); Potassium 3.4 mmol/L (3.3-5.1); Sodium 137 mmol/L (135-145); Total Protein 7.5 g/dL (6.5-8.0)
[2024-12-30 22:36] VITALS: PULSE 86; RESP 18; O2SAT 97
[2024-12-30] MEDS: Albuterol Sulfate 5 MG, Albuterol/Iprat 2.5/0.5MG 3 ML 3 ML INHALE (22:36)
[2024-12-30] MEDS: methylPREDNISolone Sod Succ 125 MG/2 ML VIAL IVPUSH (22:38)
[2024-12-30 22:53] LABS: Influenza A PCR NEGATIVE (Negative); Influenza B PCR NEGATIVE (Negative); Resp Syncy Virus RNA Qual PCR NEGATIVE (Negative); SARS COV2 PCR INHOUSE NEGATIVE (Negative)
[2024-12-31 00:24] VITALS: BP 119/74; PULSE 97; RESP 20; TEMP 36.4; O2SAT 99
== END 2024-12-31 00:25 | disposition home or self-care (01) ==
PROVIDERS: Emergency Provider Internal Medicine; PCP Internal Medicine
DX: J45.901 Unspecified asthma with (acute) exacerbation (principal); R06.02 Shortness of breath; R05.9 Cough, unspecified; Z87.891 Personal history of nicotine dependence; Z03.818 Encounter for observation for suspected exposure to other biological agents ruled out; Z79.899 Other long term (current) drug therapy
CPT/HCPCS: 0241U; 71046; 80053; 85025; 94640; 96374; 99284; J2919

== ENCOUNTER → 2024-12-30 21:45 | Outpatient (BNV) | payer OTHER, SELFPAY | PROVIDERS: Emergency Provider Internal Medicine; PCP Internal Medicine; Visit Provider Radiology Diagnostic Radiology | DX: R06.02 Shortness of breath (principal) | CPT/HCPCS: 71046 ==

== ENCOUNTER 2025-01-04 07:30 | Outpatient (REF) | payer OTHER, SELFPAY | END 2025-01-04 07:31 | disposition home or self-care (01) | LOC: HO.MAMMO 07:30 | PROVIDERS: PCP Internal Medicine; Visit Provider Internal Medicine | DX: Z12.31 Encounter for screening mammogram for malignant neoplasm of breast (principal) | CPT/HCPCS: 77063; 77067 ==

== ENCOUNTER → 2025-01-04 07:45 | Outpatient (BNV) | payer OTHER, SELFPAY | PROVIDERS: PCP Internal Medicine; Visit Provider Internal Medicine | DX: Z12.31 Encounter for screening mammogram for malignant neoplasm of breast (principal) | CPT/HCPCS: 77063; 77067 ==

== ENCOUNTER 2025-04-06 09:16 | Outpatient (AMB) | payer OTHER, SELFPAY ==
--- NOTE | 2025-04-06 09:18 | A.OFFVIS_ITS ---
Vital Signs 04/06/25 09:24 Height 5 ft 2 in Weight 176 lb BMI 32.2 BP 130/75 Blood Pressure Location Rt brachial Position Sitting Pulse 74 Intake Visit Reasons: skin nodule axilla painful Intake Note: Patient referred by pcp Dr. Lucero for mass on Rt axilla. Present for 12wks. Patient c/o: painful, sensitive to deodorant. Denies oozing. 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 Required: No Accompanied by: Self / Same As Patient Allergies amoxicillin [Amoxicillin] Allergy (Mild, Verified 04/06/25 09:22) HIVES, rash Penicillins Allergy (Mild, Verified 04/06/25 09:22) HIVES propranolol Adverse Reaction (Unknown, Verified 04/06/25 09:22) Wheezing Medication List - Last Reconciled 04/06/25 by Chepe Stock MD albuterol sulfate 90 mcg/actuation 2 puffs inhalation Q6H PRN amitriptyline 10 mg PO BEDTIME 30 days benzonatate 200 mg PO TID PRN escitalopram oxalate 30 mg PO DAILY levothyroxine 150 mcg PO QAM magnesium oxide 400 mg PO BEDTIME 30 days norethindrone (contraceptive) 0.35 mg PO DAILY riboflavin (vitamin B2) 400 mg PO DAILY 30 days rizatriptan 5 - 10 mg (0.5 - 1 x 10 mg) PO Q2H PRN 21 days HPI HPI skin nodule axilla painful: Details: 45-year-old female referred for a skin nodule in the axilla. She has had this for about 9 months. She denies any drainage. She says this has been getting more uncomfortable. She denies any trauma to the area. 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 Sexual orientation: Straight/Heterosexual Gender identity: Female Female Reproductive History Menstrual Age of Menarche: 14 Review of Systems Const Denies chills and Denies fever(s) Card Denies chest pain, Denies dyspnea and Denies dyspnea on exertion Resp Denies cough, Denies dyspnea and Denies dyspnea on exertion GI Denies hematochezia and Denies change in bowel habits Denies hematuria Musc Denies back pain and Denies limited range of motion Neuro Denies focal weakness and Denies convulsions Psych Denies depression and Denies mood swings Physical Exam Const General: comfortable and no acute distress Orientation/consciousness: patient oriented x3 Neck Neck: Yes no lymphadenopathy Resp Auscultation: clear to auscultation bilaterally Cardio Rhythm: regular rhythm GI Palpation (GI): Soft to palpation, nontender and no guarding Skin Other: Cystic induration about 1 cm in diameter on the right axilla, not erythematous, not fluctuant Neuro General: patient oriented x3 Assessment & Plan Assessment & Plan (1) Epidermal cyst: Code(s): L72.0 - Epidermal cyst Category: Medical Plan She has a an epidermalin the right axilla. She wants this removed. I explained to the technique of excision under local anesthesia. I reviewed the risks including but not limited to bleeding and infections, as well as the benefits and alternatives. She understands and wants to proceed. This will be done in the office on her next visit. Coding Level of Care Code New Pt Level 3 (72709) Diagnoses Epidermal cyst L72.0
[2025-04-06 09:24] VITALS: BP 130/75; PULSE 74; BMI 32.2
--- OUTSIDE RECORDS SUMMARY | 2025-04-06 09:46 | XMS_ITS | Patient Health Record ---
Author Organization Francesco Lucero MD Address [address] [place], [place] [id number] Care Team Providers Care Casino Games Dealer Name Role Phone Francesco Lucero Primary Care Provider [phone] Allergies Allergen (clinical drug ingredient) Drug/Non Drug Allergy documented on EMR Reaction Allergy Type Onset Date Status amoxicillin amox (uncoded) rash Allergy Act arvin penicillin (uncoded) rash Allergy Active Results Component Value Reference Range Notes TSH reflex Free T4 Reviewed date:05/07/2024 12:30:28 PM Interpretation: Performing Lab:[facility], [address] [place] [phone] Notes/Report: TSH reflex Free T4 0.50 0.32-4.0 uIU/mL Complete Blood Count Auto Di ff Reviewed date:10/29/2024 12:27:58 PM Interpretation: Performing Lab:[facility], [address] [place] [phone] Notes/Report: White Blood Count 8.0 4.8-10.8 X10*3/uL [...] NRBC Abs Auto 0.000 0.0-0.012 X10*3/uL Comprehensive [place]. Panel Fa st Reviewed date:10/29/2024 12:29:22 PM Interpretation: Performing Lab:[facility], [address] [place] [phone] Notes/Report: Sodium 143 135-145 mmol/L Potassium 4.5 [...] Panel Reviewed date:10/29/2024 12:26:40 PM Interpretation: Performing Lab:[facility], [address] [place] [phone] Notes/Report: Triglycerides 108 <150 mg/dL Desirable Triglyceride: [...] T4 Reviewed date:10/29/2024 12:28:07 PM Interpretation: Performing Lab:[facility], [address] [place] [phone] Notes/Report: TSH reflex Free T4 0.32 0.32-4.0 uIU/mL Brenda Matta Reviewed date:05/07/2024 12:19:46 PM Interpretation: Performing Lab:[facility], [address] [place] [phone] Notes/Report: Brenda Matta See Note Specimen held untested for 24 hours; Call to request Chemistry testing. CT NG by PCR Reviewed date:06/04/2024 12:20:46 PM Interpretation: Performing Lab:[facility], [address] [place] [phone] Notes/Report: Vaginal CT PCR NOT DETECTED Not [...] Panel Reviewed date:06/04/2024 12:21:15 PM Interpretation: Performing Lab:[address] [phone] Notes/Report: Trichomonas vaginalis PCR NOT DETECTED Not [...] 18/45 Reviewed date:06/09/2024 02:08:26 PM Interpretation: Performing Lab:[address] [phone] Notes/Report: SEE SCANNED RESULTS IN EMR Was [...] neg,neg Performed by: daisy Source: cervical ROUTINE [id number] CERVIX 10/15/21 HPV 16 RNA TNP HPV 18/45 RNA TNP HPV mRNA E6/E7 Not Detected Not Detected Methodology: Video Photographer-Mediate d Amplification This assay detects E6/E7 viral messenger RNA (mRNA) from 14 high-risk HPV types (16,18,31,33,35,39,45 ,51,52,56,58,59,66,68 ). Cervical sources are required for HPV testing. If a vaginal source from a patient who has had a total hysterectomy with removal of cervix was submitted, please contact the testing laboratory for alternative testing options. For additional information, please refer to http://education.Bio[employer]/faq/ [facility]128p9 (This link if provided for information/ educational purposes only.) THIS TEST WAS PERFORMED AT: [facility] [address] [place] [phone] LUDY TUCKER MD Thin Prep Source SEE NOTE Cervix Report Status TNP Clinical Information SEE NOTE Routine exam LMP SEE NOTE 05/22/2024 Previous PAP SEE NOTE 10/15/2021 Previous Biopsy Date SEE NOTE NONE GI MELISSA State of Adequacy SEE NOTE Satisfactory for evaluation. Endocervical/transfor mation zone component present. General Categorization SEE NOTE Cytol ogy Results: Epithelial Cell Abnormality Interpretation/Result SEE NOTE Atypical Squamous Cells of Undetermined Significance (ASC-US) Cytology Comment SEE NOTE This Pap test has been evaluated with computer assisted technology. Medicaid Specialist SEE NOTE LETI, CT(ASCP) CT screening location: [address] [address] Review Medicaid Specialist [place] Pathologist SEE NOTE Rowena Cook D.O. Board Certified in Anatomic, Clinical and Cytopathology (electronic signature) Consulting Pathologist [facility] [address] [place] [address] PAP Infection TNP See Note SEE NOTE [...] Pathology Reviewed date:06/24/2024 12:45:35 PM Interpretation: Performing Lab:[facility], [address] [place] [phone] Notes/Report: -- ---- Name: Marietta Dave Age/Sex: 44/F : 1980 Unit#: [id number] Attend Dr: Brian Garcia MD Re06/21/24 Status : [facility] Location: [facility] Disch: -- ---- SPEC : [id number] RECD : 06/22/24 STATUS: [facility] NUM: [id number] LINA: 06/21/24-[address] [place] [address] DR: Brian Garcia MD ENTERED: 06/22/24-07 14 SP TYPE: Surgical OTHR DR: Francesco Lucero MD ORDERED: HE Stain/5, Gross Micro L4/2 Diagnosis A. Endocervix, curettage: Inflamed cervical transformation zone mucosa, endocervical and squamous epithelium with reactive changes. B. Cervix, 6 o'clock , biopsy: Squamous mucosa within normal limits; no endocervical epithelium identified. Clinical History ASCUS of cervix with negative high risk HPV Microscopic Description A, B. Microscopic sections reviewed. Material Received A. ECC B. Cx bx 6 o'clock Gross Description Received in 2 parts. A. Received in formalin labeled ?ECC? are minute fragments of white soft tissue mixed with mucus forming an aggregate measuring 0.8 x 0.7 x 0.1 cm which is wrapped in lens paper and entirely submitted f or microscopic examination, multiple pieces in cassette A. B. Received in formalin labeled ?CX Bx 6:00 a.m.? is a fragment of rubbery, white tissue measuring 0.6 cm in greatest dimension which is wrapped in lens paper and entirely submitted for microscopic examination, 1 piece in cassette B. [facility] Copies To: Francesco Lucero MD [facility] [address] [place] [phone] CONTINUED ON NEXT PAGE -- ---- Name: DiegoMarietta Srinivasa Age/Sex: 44/F : 1980 Unit#: [id number] Attend Dr: Brian Garcia MD Re06/21/24 Status : DEP REF Location: [facility] Disch: -- ---- SPEC : [id number] RECD : 06/22/24 STATUS: [facility] NUM: [id number] LINA: 06/21/24-[address] [facility] DR: Brian Garcia MD ENTERED: 06/22/24-08 21 SP TYPE: Surgical OTHR DR: Francesco Lucero MD ORDERED: HE Stain/5, Gross Micro L4/2 Copies To: (Continued) Brian Garcia MD [facility] [address] [place] [address] -- ---- Signed (signature on file) Mateo Smalls MD 06/24/24 1001 -- ---- END OF REPORT Brenda Matta Reviewed date:10/29/2024 12:29:02 PM Interpretation: Performing Lab:[facility], [address] [place] [phone] Notes/Report: Brenda Matta See Note Specimen held untested for 24 hours; Call to request Chemistry testing. UA CC w/rflx Micro + Cult Reviewed date:10/29/2024 12:31:30 PM Interpretation: Performing Lab:[facility], [address] [place] [phone] Notes/Report: Urine, Clean Catch Color Urine Yellow Appearance Urine Clear PH 5.5 5.0-9.0 Glucose Urine UA Negative Negative mg/dL Urine Blood Negative Negative Specific [place] - Urine 1.015 1.005-1.025 Urine Protein Negative Neg-Trace mg/dL Urine Ketones Negative Negative mg/dL Nitrite Urine Negative Negative Leukocyte Esterase Urine Negative Negative XR chest 2V Reviewed date:12/31/2024 10:42:23 AM Interpretation: Performing Lab: Notes/Report: [address] [address] XRay Report Signed Patient: Marietta Dave MR#: [id number] 11 : 1980 Acct:[id number] Age/Sex: 44 / F ADM Date: 12/30/24 Loc: .ED Attending Dr: Ordering Physician: Nate Cuevas MD Date of Service: 12/30/24 Procedure(s): XR chest 2V Accession Number(s): [id number] cc: Francesco Lucero MD; Nate Cuevas MD CLINICAL HISTORY: sob 2 view chest x-ray Comparison: DX/SR - XR CHEST 2V - 02/26/24 15:04 EDT Findings: No consolidation or effusion. Heart size is normal. No acute fracture. IMPRESSION: 1. No acute findings. This document has been electronically signed by: Belinda Medina MD on 12/30/2024 22:07:15 Dictated By: Belinda Medina MD Signed By: <Electronically signed by Belinda Medina MD in OV> 12/30/242207 DD/ 06 TD/TT: 12/30/242206 Local Telephone Operator: [address] [address] XRay Report Signed Patient: Marcial Dave MR#: [id number] 11 : 1980 Acct:[id number] Age/Sex: 44 / F ADM Date: 12/30/24 Loc: .ED Attending Dr: Ordering Physician: Nate Cuevas MD Date of Service: 12/30/24 Procedure(s): XR katy st 2V Accession Number(s): [id number] cc: Francesco Lucero MD; Nate Cuevas MD CLINICAL HISTORY: sob 2 view chest x-ray Comparison: DX/SR - XR CHEST 2V - 02/26/24 15:04 EDT Findings: No consolidation or effusion. Heart size is normal. No acute fracture. IMPRESSION: 1. No acute findings. This document has be en electronically signed by: Belinda Medina MD on 12/30/2024 22:07:15 Dictated By: Belinda Medina MD Signed By: <Electronically signed by Belinda Medina MD in OV> 12/30/242207 DD/ 06 TD/TT: 12/30/242206 Local Telephone Operator: MM tomosynthesis screening B I Reviewed date:01/11/2025 04:55:27 PM Interpretation: Performing Lab: Notes/Report: [facility] [address] [place] [address] Mammography Report Signed Patient: Marietta Dave MR#: [id number] 11 : 1980 Acct:[id number] Age/Sex: 44 / F ADM Date: 01/04/25 Loc: HO.MAMMO Attending Dr: Francesco Lucero MD Ordering Physician: Francesco Lucero MD Results: 2Be nign Findings Date of Service: 01/04/25 Follow Up: 1 Year From [facility] ina Mammogram Procedure(s): MM tomosynthesis screening BI Accession Number(s): [id number] cc: Francesco Lucero MD EXAMINATION: MM SCREENING DIGITAL BREAST TOMOSYNTHESIS, BILATERAL CLINICAL INFORMATION: Screening. Asymptomatic. COMPARISON: Mammography: Comparison is made with available priors TECHNIQUE: Digital breast mammography with tomosynthesis is performed in both the craniocaudal and mediolateral oblique views along with computer-aided detection (CAD). FINDINGS: There are scattered areas of fibroglandular density (ACR BI-RADS breast composition Category b). Bilateral scattered asymmetries and circumscribed oval masses which wax and wane consistent with benign fibrocystic changes. There are no significant masses, abnormal calcifications, or other abnormalities. MM/MM tomosynthesis screening BI IMPRESSION: No mammographic evidence of malignancy. ASSESSMENT: BI-RADS BI-RADS 2 - Benign Findings RECOMMENDATION: Routine annual mammography screening. 1 year F/U This examination should not preclude the clinical evaluation of a suspicious palpable abnormality. This patient's information was entered into a reminder system with a target due date for their next mammogram. Electronically signed by: Emilie Antonio DO 01/11/2025 04:39 PM [facility] Dictated By: Emilie Antonio DO Signed By: <Electronically signed by Emilie Antonio DO in OV> 01/11/25 1639 DD/ TD/TT: 01/04/25 0749 Local Telephone Operator: [facility] [address] [place] [address] Mammography Report Signed Patient: Marcila Dave MR#: [id number] 11 : 1980 Acct:[id number] Age/Sex: 44 / F ADM Date: 01/04/25 Loc: HO.MAMMO Attending Dr: Francesco Lucero MD Ordering Physician: Francesco Lucero MD Results: 2Be nign Findings Date of Service: 01/04/25 Follow Up: 1 Year From Orig ina Mammogram Procedure(s): MM tomosynthesis screening BI Accession Number(s): [id number] cc: Francesco Lucero MD EXAMINATION: MM SCREENING DIGITAL BREAST TOMOSYNTHESIS, BILATERAL CLINICAL INFORMATION: Screening. Asymptomatic. COMPARISON: Mammography: Comparison is made with available priors TECHNIQUE: Digital breast mammography with tomosynthesis is performed in both the craniocaudal and mediolateral oblique views along with computer-aided detection (CAD). FINDINGS: There are scattered areas of fibroglandular density (ACR BI-RADS breast composition Category b). Bilateral scattered asymmetries and circumscribed oval masses which wax and wane consistent with benign fibrocystic changes. There are no significant masses, abnormal calcifications, or other abnormalities. MM/MM tomosynthesis screening BI IMPRESSION: No mammographic evidence of malignancy. ASSESSMENT: BI-RADS BI-RADS 2 - Benign Findings RECOMMENDATION: Routine annual mammography screening. 1 year F/U This examination should not preclude the clinical evaluation of a suspicious palpable abnormality. This patient's information was entered into a reminder system with a target due date for their next mammogram. Electronically dianna d by: Emilie Antonio DO 01/11/2025 04:39 PM [facility] Dictated By: Emilie Antonio DO Signed By: <Electronically signed by Emilie Antonio DO in OV> 01/11/259 DD/ TD/TT: 01/04/25 0749 Local Telephone Operator: Reason For Referral Reason SCREEN FOR COLON CAN CER Diagnosis 1 Screen for colon can cer (Z12.11) Referral Organization Francesco Lucero MD Referring Provider First Name Francesco Referring Provider Last Name Nic Referring Provider Speciality Internal M edicine Referred Provider Farhan Mazariegos Referred Provider Specialty Gastroentero logy General Notes Brianna Elizalde 01/25/2025 09:21:01 AM >REFERRAL FAXED TO Tonio AMES Patti A 02/18/2025 10:35:14 AM >APPT SCHEDULED 06/02/25 A T9:20AM Referral Priority Routine Referral Appointment Date 06/02/2025 Reason Skin Nodule right ar m pit painful Diagnosis 1 Skin nodule (R22.9) Referral Organization Francesco Lucero MD Referring Provider First Name Francesco Referring Provider Last Name Nic Referring Provider Speciality Internal M edicine Referred Provider Edward Vasquez Referred Provider Specialty Surgery General Notes Martha Chilel 0 03/10/2025 08:16:41 AM >Called patient with info and mailed Referral Priority Routine Referral Appointment Date 03/16/2025 Medications Medication SIG (Take, Route, Frequency, Duration) Notes Start Date End Date Status Albuterol Sulfate HFA 108 (90 Base) MCG/ACT INHALE 1 PUFF BY MOUTH EVERY 4 HOURS NEEDED FOR 30 DAYS Active Ibuprofen 800 MG 1 tablet with food o r milk as needed Orally Three times a day for 10 days 12/04/2020 Not-Taking Escitalopram Oxalate 20 MG TAKE 1 TABLET BY MOUTH EVERY DAY FOR 30 DAYS Active Propranolol HCl ER 80 MG TAKE 1 CAPSULE BY MOUTH EVERY DAY FOR 30 DAYS for 90 Not-Taking Breo Ellipta 200-25 MCG/ACT 1 puff Inhalation Once a day 02/26/2024 Active buPROPion HCl ER (XL) 150 MG 1 tablet in the morning Orally Once a day 01/25/2025 Active Levothyroxine Sodium 112 MCG take 1 tablet by mouth every day in the morning on an empty stomach Orally Once a day Active Zomig 2.5 MG 1 tablet Orally Once a day 01/23/2023 Active Ventolin HFA * 108 (90 Base) MCG/ACT 2 puffs as needed Inhalation every 4 hrs for 30 days 05/23/2014 Active Immunizations Vaccine Route Administration Date Status Comme nts [...] Administe red Flu Vaccine Unknown 08/12/2014 Pending Social History Tobacco Use: Social History Observation [...] Problem Status W/U Status Risk Notes Problem 57995099 Anxiety (F41.9) Active confirmed Problem 031662427 Acquired hypothyroidism (E03.9) Active confirmed Problem 197995085 Mild intermitten t asthma without complication (J45.20) Active confirmed Problem Alcohol abuse (05223862) Alcohol abuse (F10.10) Active confirmed Problem 2736256 Migraine with au ra and without status migrainosus, not intractable (G43.109) Active confirmed Problem Dysthymia (90639064) Dysthymia (F34.1) Active confirmed Problem 614073884 Vaginal bleeding (N93.9) Active confirmed Problem Obsessive-com pulsive disorder (045293354) Obsessive thinking (F42.8) Active confirmed Vital Signs Blood pressure diastolic 74 mm Hg 03/10/2025 laurie ght is down 5 pounds since 01-25-25 Height 62 in 03/10/2025 weight is down 5 pounds since 01-25-25 Blood pressure systolic 108 mm Hg 03/10/2025 weig ht is down 5 pounds since 01-25-25 Weight 173 lbs 03/10/2025 weight is down 5 pounds since 01-25-25 BMI 31.64 kg/m2 03/10/2025 weight is down 5 pounds since 01-25-25 Encounters Encounter Location Date Provider Diagnosis Francesco Lucero MD [address] [place] [id number] 05/07/2024 Francesco Lucero Acquired hypothyroidism E03.9 Francesoc Lucero MD [address] [place] [id number] 10/29/2024 Francesco Lucero Blood tests for routine general physical examination Z00.00 and Acquired hypothyroidism E03.9 Francesco Lucero MD [address] [place] [address] [id number] 05/20/2024 Francesco Lucero Acquired hypothyroidism E03.9 and Anxiety F41.9 Francesco Lucero MD [address] [place] [address] [id number] 01/25/2025 Francesco Lucero Alcohol abuse F10.10 ; Annual physical exam Z00.00 ; Dysthymia F34.1 ; Skin nodule R22.9 ; Acquired hypothyroidism E03.9 ; Mild intermittent asthma without complication J45.20 and Depression screening Z13.31 Francesco Lucero MD [address] [place] [address] [id number] 03/10/2025 Francesco Lucero Mild intermittent asthma without complication J45.20 ; Dysthymia F34.1 and Skin nodule R22.9 Francesco Lucero MD [address] [place] [address] [id number] 05/07/2024 Francesco Lucero MD [address] [place] [address] [id number] 12/31/2024 Francesco Lucero MD [address] [place] [address] [id number] 10/25/2024 Francesco Lucero MD [address] [place] [address] [id number] 11/04/2024 Francesco Lucero MD [address] [place] [address] [id number] 03/01/2025 Francesco Bombardier Assessments Encounter Date Diagnosis (ICD Code) Assessment Notes Treatment Notes Treatment Clinical Notes Section Notes 05/07/2024 Acquired hypothyroidism (ICD-10 - E03.9) 10/29/2024 Blood tests for routine general physical examination (ICD-10 - Z00.00) 10/29/2024 Acquired hypothyroidism (ICD-10 - E03.9) 05/20/2024 Acquired hypothyroidism (ICD-10 - E03.9) doing well on present meds, will continue current regiment 05/20/2024 Anxiety (ICD-10 - F41.9) feeling well and not anxious any longer, will continue current regiment 01/25/2025 Alcohol abuse (ICD-10 - F10.10) has restarted for a while. should get back to counselling 01/25/2025 Annual physical exam (ICD-10 - Z00.00) make appt for colonoscopy, labs rviewed and discussed with patient 03/10/2025 Mild intermittent asthma without complication (ICD-10 - J45.20) stable on meds, will contnue current regiment 03/10/2025 Dysthymia (ICD-10 - F34.1) doing great, will contnue current regiment 01/25/2025 Dysthymia (ICD-10 - F34.1) is getting worse, patient verbalized understanding of medicatioj and directions for use 03/10/2025 Skin nodule (ICD-10 - R22.9) referral to [facility] [place] 01/25/2025 Skin nodule (ICD-10 - R22.9) is [...] negative screen 01/25/2025 Other REFERRAL FAXED TO [facility] FOR NEW PATIENT APPT Plan Of Treatment Pending Test Test Name Order Date Electrocardiogram (EKG) 09/16/2011 MRI BRAIN NO CONTRAST 03/03/2023 XR CHEST 2 VIEW PA & LAT 02/26/2024 TSH (THYROID STIMULATING HORMONE) 2018 Future Test Test Name Order Date MRI BRAIN NO CONTRAST 09/17/2023 Next Appt Details Provider Name:Francesco Pressley ier, 05/19/2025 07:45:00 AM, [address] [place] [address], [address], [place], [place], [phone], Provider Name:Francesco Pressley ier, 01/23/2026 07:15:00 AM, [address] [place] [address], [address], [place], [place], [phone], Provider Name:Francesco Pressley ier, 01/30/2026 08:30:00 AM, [address] [place] [address], Suite [facility], [place], [place], [phone], Insurance Providers Payer Name Payer Address Payer Phone Subscriber Number Group Number Insured Name Patient Relationship to Insured Coverage Start Date Coverage End Date [facility] [address] [facility] [address] [facility] [place] [phone] [id number] Marietta Dave Self - patient is the insured Medical (General) History Medical History History ICD Code appt in January [place] , [employer], 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 Soler
--- OUTSIDE RECORDS SUMMARY | 2025-04-06 09:46 | XMS_ITS ---
Author Organization Francesco Lucero MD Address [address] [place] [address] [place] [phone] Care Team Providers Care Taker Off Braker Machine Name Role Phone Francesco Lucero Primary Care Provider REASON FOR VISIT New Refill Request Medications Medication SIG (Take, Route, Frequency, Duration) Notes Start Date End Date Status Albuterol Sulfate HFA 108 (90 Base) MCG/ACT INHALE 1 PUFF BY MOUTH EVERY 4 HOURS NEEDED FOR 30 DAYS for 20 Active Encounters Encounter Location Date Provider Diagnosis Francesco Lucero MD [address] [place] [address] [place] [phone] 03/01/2025 Francesco Lucero Plan Of Treatment Medication Medication Name Sig Start Date Stop Date Notes Albuterol Sulfate HFA 108 (9 0 Base) MCG/ACT INHALE 1 PUFF BY MOUTH EVERY 4 HOURS NEEDED FOR 30 DAYS for 20 Next Appt Details Provider Name:Francesco salas, 05/19/2025 07:45:00 AM, [address] [place] [address], [address], [phone], Provider Name:Francesco salas, 01/23/2026 07:15:00 AM, [address] [place] [address], [phone], Provider Name:Francesco salas, 01/30/2026 08:30:00 AM, [address] [place] [address], [phone], Progress Notes * Marietta CORTEZ KDOB: 9 (44 yo F)Acc No.[id number]:03/01/2025 Patient:?Marietta CORTEZ :1980???Age:44 Y???Sex:Female Address:[address] [place] [phone] * Refills? Refill Albuterol Sulfate HFA Aerosol Solution, 108 (90 Base) MCG/ACT, 8.5 Each, INHALE 1 PUFF BY MOUTH EVERY 4 HOURS NEEDED FOR 30 DAYS, 20, Refills=3 * true * Date:? Generated for Brian flood/Jack/eTfaridehsmitting on:?04/06/2025 09:46 AM EDT
--- OUTSIDE RECORDS SUMMARY | 2025-04-06 09:46 | XMS_ITS ---
Author Organization Francesco Lucero MD Address [address] [place], [place] [phone] Care Team Providers Care Tanbark Peeler Name Role Phone Francesco Lucero Primary Care Provider [phone] Allergies Allergen (clinical drug ingredient) Drug/Non Drug [...] Referral Priority Routine Referral Appointment Date 06/02/2025 REASON FOR VISIT annual visit Medications Medication [...] Status W/U Status Risk Notes Problem Dysthymia (F34.1) Active confirmed Vital Signs Blood pressure systolic 122 mm Hg 01/26/20 25 Blood pressure diastolic 90 mm Hg 025 Height 62 in 01/25/2025 Weight 178 lbs 01/25/2025 BMI 32.55 kg/m2 01/25/2025 weight is up 11 pounds since 05-20-24 Encounters Encounter Location Date Provider Diagnosis Francesco Lucero MD 10 [facility] [address] [place], [place] [phone] 01/25/2025 Francesco Lucero Alcohol abuse F10.10 ; [...] screening negative screen Other REFERRAL FAXED TO [facility] FOR NEW PATIENT APPT Referrals Referral Date Details 01/25/2025 01/25/2025, SCREEN F OR COLON CANCER, Farhan Mazariegos Next Appt Details Follow Up: 6 Weeks, Reason: Provider Name:Francesco salas, 05/19/2025 07:45:00 AM, [address] [place] [address], Suite [facility], [place], [place], [phone], Provider Name:Francesco salas, 01/23/2026 07:15:00 AM, [address], [address], [place], [place], [phone], Provider Name:Francesco salas, 01/30/2026 08:30:00 AM, [facility], [address], [place], [phone], Progress Notes * Marietta CORTEZ KDOB: 9 (44 yo F)Acc No.[id number]:01/25/2025 Progress Notes Patient:?Marietta CORTEZ Provider:?Francesco Lucero MD :1980???Age:44 Y???Sex:Female D ate:01/25/2025 Address:[address] [place] [address] RICK CAMPOS [phone] Subjective: * Chief Complaints: * ???Annual visit * HPI: ???Depression Screening:?PHQ-9?Little interest or pleasure in doing things?Several days,?Feeling down, depressed, or hopeless?Several days,?Trouble falling or staying asleep, or sleeping too much?Several days,?Feeling tired or having little energy?Several days,?Poor appetite or overeating?Several days,?Feeling bad about yourself or that you are a failure, or have let yourself or your family down?Not at all,?Trouble concentrating on things, such as reading the newspaper or watching television?Not at all,?Moving or speaking so slowly that other people could have noticed; or the opposite, being so fidgety or restless that you have been moving around a lot more than usual?Not at all,?Thoughts that you would be better off or of hurting yourself in some way?Not at all,?Total Score?5,?Interpretation?Mild Depression.?Interpretation and Intervention?Depression Screening Findings?Negative,?Follow-Up for Depression?: review of PHQ-9 found negative result, no follow-up needed.?Communication Needs:?Communication Needs?Does the patient have a hearing impairment?No,?Does the patient have a vision impairment??Yes,?If yes, what is the vision impairment??Glasses,?Does the patient have a cognition impairment??No.?SDOH Questions:?SDOH Questions?In the past year have you been worried about losing housing??No,?In the past year have you or any family members you live with been unable to get any of the following when it was really needed? Check all that apply:?None.?Symptom(s):? patient is a 44 yo female here for annual visit with review of recent labs and follow up of chronic issues. * ROS:?General/Constitutional:?Change in appetite?denies.?Chills?denies.?Fever?denies.?Ophthalmologic:?Blurred vision?denies.?Discharge?denies.?Pain?denies.?ENT:?Decreased hearing?denies.?Sore throat?denies.?Swollen glands?denies.?Endocrine:?Cold intolerance?denies.?Excessive thirst?denies.?Heat intolerance?denies.?Weight loss?denies.?Respiratory:?Cough?denies.?Shortness of breath at rest?denies.?Shortness of breath with exertion?denies.?Wheezing?denies.?Cardiovascular:?Chest pain at rest?denies.?Chest pain with exertion?denies.?Irregular heartbeat?denies.?Shortness of breath?denies.?Gastrointestinal:?Abdominal pain?denies.?Change in bowel habits?denies.?Diarrhea?denies.?Nausea?denies.?Rectal bleeding?denies.?Vomiting?denies .?Genitourinary:?Blood in urine?denies.?Difficulty urinating?denies.?Frequent urination?denies.?Urinary incontinence?Denies.?Musculoskeletal:?Painful joints?denies.?Weakness?denies.?Skin:?Dry skin?denies.?Itching?denies.?Denies?Mole(s),? changes in moles, new moles or any lesions of concern.?Denies?Photosensitivity.?Rash?denies.?Neurologic:?Dizziness?denies.?Fainting?denies.?Headache?denies.? * Medical History:? * Surgical History:? * Hospitalization/Major Diagno stic Procedure:? * Family History:?Father: cedric e 71 yrs, Healthy.?Mother: alive 71 yrs, Healthy.?1 brother(s) , 1 sister(s) . 2 son(s) , 1 daughter(s) . .? fATHER- healthy mother- healthy, /substance abuse family history substance abuse uncle , brother mother's father, Denies mental health/substance abuse family history, Denies mental health/substance abuse family history. * Social History:?Tobacco Use:?Tobacco Use/Smoking?Patient is a?nonsmoker,?Additional Findings: Tobacco Non-User?Current non-smoker, currently using no form of tobacco.?Drugs/Alcohol:?Alcohol Screen?Did you have a drink containing alcohol in the past year??No,?Points?0,?Interpretation?Negative.?Miscellaneous:?Caffeine: yes, frequency:, 1-2 cups per day. Children: yes. Exercise: no. Home smoke detector use: yes. Housing: owning. Living with: family. Marital status: . Pets: cats: dogs: 2 dogs. Travel outside of the [place]: no. * Medications:?TakingBreo Josefina fishing boat captain 200-25 MCG/ACT Aerosol Powder Breath Activated 1 [...] Medication List reviewed and reconciled with the patientNot- Taking/PRN Propranolol HCl ER 80 MG Capsule Extended [...] reviewed and reconciled with the patient * Allergies:?penicillin: rasha mox: navi[Allergies Verified] Objective: * Vitals:?Ht: 62, Wt: 178, BMI :32.55, BP:122/90, Wt-k.74. weight is? up 11 pounds since 05-20-24. * ???Past Orders: ???Lab:Comprehensive [place]. P pato Fast (Order Date - 10/29/2024) (Collection Date & Time - 10/29/2024 07:00 AM) ? Value Reference Range ?Sodium 143 135-145 - mmo l/L ?Bilirubin Total 0.3 0.0- 1.0 - mg/dL ?Aspartate Amino Transferase 22 5-31 - U/L ?Alanine Aminotransferase 23 0-31 - U/L ?Total Protein 7.3 6.5-8. 0 - g/dL ?Albumin Level 4.4 3.5-5. 0 - g/dL ?Alkaline Phosphatase 56 39-117 - U/L ?Potassium 4.5 3.3-5.1 - mmol/L ?Chloride 111 H 96-108 - mm ol/L ?Carbon Dioxide 24 22-29 - mmol/L ?Anion Gap 13 12-20 - ?Blood Urea Nitrogen 12 9-16 - mg/dL ?Creatinine 0.82 0.5-1.4 - mg/dL ?Estimated Glomerular Filt Rate > 60 - ?Glucose Fasting 87 60-9 9 - mg/dL ?Calcium 9.4 8.4-10.2 - m g/dL ???Lab:Lipid Panel (Order Da te - 10/29/2024) (Collection Date & Time - 10/29/2024 07:00 AM) ? Value Reference Range ?Triglycerides 108 <150 - mg/dL ?Cholesterol 215 H <200 - m g/dL ?LDL Cholesterol Calculated 144 H <100 - mg/dL ?HDL Cholesterol 50 >40 - mg/dL ???Lab:TSH reflex Free T4 (O rder Date - 10/29/2024) (Collection Date & Time - 10/29/2024 07:00 AM) ? Value Reference Range ?TSH reflex Free T4 0.32 0 .32-4.0 - uIU/mL ???Lab:UA CC w/rflx Micro + Cult (Order Date - 10/29/2024) (Collection Date & Time - 10/29/2024 07:00 AM) ? Value Reference Range ?Color Urine Yellow - ?Appearance Urine Clear - ?PH 5.5 5.0-9.0 - ?Glucose Urine UA Negative Neg ative - mg/dL ?Urine Blood Negative Negative - ?Specific [place] - Urine 1.015 1.005-1.025 - ?Urine Protein Negative Neg-Tr mahsa - mg/dL ?Urine Ketones Negative Negati ve - mg/dL ?Nitrite Urine Negative Negati ve - ?Leukocyte Esterase Urine Negative Negative - ???Lab:Complete Blood Count Auto Diff (Order Date - 10/29/2024) (Collection Date & Time - 10/29/2024 07:00 AM) ? Value Reference Range ?White Blood Count 8.0 4. 8-10.8 - X10*3/uL ?Red Blood Count 4.58 4.20 -5.50 - X10*6/uL ?Hemoglobin 15.1 12.0-16.0 - g/dl ?Hematocrit 44.0 37.0-47.0 - % ?Mean Corpuscular Volume 96.1 80.0-98.0 - fL ?Mean Corpuscular Hemoglobin 33.0 27.0-33.0 - pg ?Mean Corpuscular HGB Conc 34.3 31.0-35.0 - g/dl ?Red Cell Distribution Width 11.9 11.0-16.0 - % ?Platelet Count 253 160-4 00 - X10*3/uL ?Mean Platelet Volume 9.8 9.4-12.3 - fL ?Neutrophils Percent Auto 55.0 45-73 - % ?Imm Gran Pct Auto 0.2 0. 0-0.4 - % ?Lymphocytes Percent Auto 23.8 20-40 - % ?Monocytes Percent Auto 10.9 2-11 - % ?Eosinophils Percent Auto 9.2 H 0-4 - % ?Basophils Percent Auto 0.9 0-2 - % ?NRBC Pct Auto 0.0 0.0-0. 2 - /100WBC ?Neutrophils Absolute Auto 4.4 2.0-8.3 - x10*3/uL ?Imm Gran Abs Auto 0.02 0. 00-0.03 - X10*3/uL ?Lymphocytes Absolute Auto 1.9 1.2-4.9 - X10*3/uL ?Monocytes Absolute Auto 0.9 0.1-1.2 - X10*3/uL ?Eosinophils Absolute Auto 0.7 H 0.0-0.4 - X10*3/uL ?Basophils Absolute Auto 0.1 0.0-0.2 - X10*3/uL ?NRBC Abs Auto 0.000 0.0-0. 012 - X10*3/uL * Examination: ???General Examination: ?GENERAL APPEARANCE:?well developed, well nourished, in no acute distress.?HEAD:?normocephalic, atraumatic.?EYES:?pupils equal, round, reactive to light and accommodation, sclera non-icteric.?EARS:?normal.?ORAL CAVITY:?mucosa moist.?THROAT:?clear.?NECK/THYROID:?neck supple, full range of motion, no cervical lymphadenopathy, no bruits.?SKIN:?warm and dry, no suspicious lesions, abnormal rt axilla with a one inch soft freely movable sub cutaneous lesion..?HEART:?regular rate and rhythm, S1, S2 normal, no murmurs.?LUNGS:?clear to auscultation bilaterally.?BREASTS:?No mass, no lump.?ABDOMEN:?soft, nontender, nondistended, bowel sounds present, normal, no organomegaly , no masses palpable.?RECTAL EXAM:?done by sheet metal layout worker.?FEMALE GENITOURINARY:?done by sheet metal layout worker.?EXTREMITIES:?no clubbing, cyanosis, or edema.?NEUROLOGIC:?nonfocal, motor strength normal upper and lower extremities, sensory exam intact.? Assessment: * Assessment: 1.?Annual physical exam - Z0 0.00 (Primary)???2.?Alcohol abuse - F10.10???3.?Dysthymia - F34.1???4.?Skin nodule - R22.9???5.?Acquired hypothyroidism - E03.9???6.?Mild intermittent asthma without complication - J45.20???7.?Depression screening - Z13.31??? Plan: * Treatment: 2.?Alcohol abuse? Notes: has restarted for a while. should get back to counselling?? 3.?Dysthymia? Start buPROPion HCl ER (XL) Tablet Extended Release 24 Hour, 150 MG, 1 tablet in the morning, Orally, Once a day, 30 days, 30, Refills 3;?Continue Escitalopram Oxalate Tablet, 20 MG, TAKE 1 TABLET BY MOUTH EVERY DAY FOR 30 DAYS.?? Notes: is getting worse, patient verbalized understanding of medicatioj and directions for use?? 4.?Skin nodule? Notes: is soft and feels benign but will recheck it at next visit. she thinks has only been there for 2 weeks?? 5.?Acquired hypothyroidism? Continue Levothyroxine Sodium Tablet, 112 MCG, take 1 tablet by mouth every day in the morning on an empty stomach, Orally, Once a day.?? Notes: stable, will contnue current regiment?? 6.?Mild intermittent asthma without complication? Continue Breo Ellipta Aerosol Powder Breath Activated, 200-25 MCG/ACT, 1 puff, Inhalation, Once a day.?? Notes: stable, will continue current regiment?? 7.?Depression screening? Notes: negative screen?? 8.?Others? Notes: REFERRAL FAXED TO [facility] FOR NEW PATIENT APPT? Referral To:Farhan Mazariegos??Gastroenterology ?Reason:SCREEN FOR COLON CANCER * Procedure Codes:? * Follow Up:?6 Weeks * * Sign off status: Completed true * Provider:?Francesco Lucero MD Date:?0 01/25/2025 Generated for Brian flood/Jack/Ignacio on:?04/06/2025 09:46 AM EDT History and Physical Notes * HPI [...] patient have a vision impairmen t?: Yes ?If yes, what is the vision impairment?: Glasses Does the patient have a cognition impair ment?: No Examination Category Sub-Category Detail Notes Category Not es General Examination GENERAL APPEARANCE: well dev eloped, well nourished, in no acute distress HEAD: normocephalic, atrau matic EYES: pupils equal, round, reactive to light and accommodation, sclera non- icteric EARS: normal THROAT: clear NECK/THYROID: neck supple, [...] mass, no lump RECTAL EXAM: done by sheet metal layout worker FEMALE GENITOURINARY: done by sheet metal layout worker ORAL CAVITY: mucosa moist Consultation Request Notes Referral Date Referring Provider Referred Provider Not es 01/25/2025 Francesco Lucero Robert SCREEN FOR COLON CANCER
--- OUTSIDE RECORDS SUMMARY | 2025-04-06 09:47 | XMS_ITS ---
Author Organization Francesco Lucero MD Address [address] [place], [place] [phone] Care Team Providers Care Custom Applicator Name Role Phone Francesco Lucero Primary Care [...] 03/10/2025 weight is down 5 pounds [facility] e 01-25-25 Encounters Encounter Location Date Provider Diagnosis Francesco Lucero MD [address] [place] [address] [place] [phone] 03/10/2025 Francesco Lucero Mild intermittent asthma without [...] Skin nodule (ICD-10 - R22.9) referral to [facility] surgery Plan Of Treatment Medication Medication Name [...] ntnue current regiment Skin nodule referral to [facility] surg stephen Referrals Referral Date Details 03/10/2025 03/10/2025, Skin Nod ule right arm pit painful, Edwardjessica Vasquez Next Appt Details Follow Up: 2 Months, Reason: Provider Name:Francesco Pressley ier, 05/19/2025 07:45:00 AM, [address], [address], [place], [place], [phone], Provider Name:Francesco Pressley ier, 01/23/2026 07:15:00 AM, [address], [address], [place], [place], [phone], Provider Name:Francesco Pressley ier, 01/30/2026 08:30:00 AM, [address], [address], [place], [place], [phone], Progress Notes * Marietta CORTEZ KDOB: 9 (44 yo F)Acc No.[id number]:03/10/2025 Progress Notes Patient:?Marietta CORTEZ Srinivasa Provider:?Francesco Lucero MD :1980???Age:44 Y???Sex:Female D ate:03/10/2025 Address:[address] [place] [address] [phone] Subjective: * Chief Complaints: * ???6 WK F/U * HPI: ???Symptom(s):?patient is a 44 yo female here for 6 week follow up visit/ doing well on buproprium. is walking and is motivated. * ROS:?General/Constitutional:?Denies?Chills.?Denies?Fatigue.?Denies?Fever.?Denies?Headache.?ENT:?Denies?Sore throat.?Respiratory:?Denies?Cough.?Denies?Shortness of breath at rest.?Denies?Shortness of breath with exertion.?Gastrointestinal:?Denies?Diarrhea.?Denies?Nausea.? * Medical History:? * Surgical History:? * Hospitalization/Major Diagno stic Procedure:? * Medications:?TakingZomig 2.5 MG Tablet 1 tablet Orally Once [...] with the patient * Allergies:?penicillin: rasha mox: rashyes[Allergies Verified] Objective: * Vitals:?Ht: 62, Wt: 173, BMI :31.64, BP:108/74, Wt-k.47. weight is down 5 pounds since 01-25-25. * Examination: ???General Examination: ?GENERAL APPEARANCE:?pleasant, in no acute distress.?HEAD:?normocephalic.?SKIN:?abnormal with one half inch cystic lesion of rt axilla.?HEART:?no murmurs, rubs, gallops, regular rate and rhythm.?LUNGS:?diffuse wheezes.? Assessment: * Assessment: 1.?Mild intermittent asthma without complication - J45.20 (Primary)???2.?Dysthymia - F34.1???3.?Skin nodule - R22.9??? Plan: * Treatment: 2.?Dysthymia? Continue buPROPion HCl ER (XL) Tablet Extended Release 24 Hour, 150 MG, 1 tablet in the morning, Orally, Once a day;?Continue Escitalopram Oxalate Tablet, 20 MG, TAKE 1 TABLET BY MOUTH EVERY DAY FOR 30 DAYS.?? Notes: doing great, will contnue current regiment?? 3.?Skin nodule? Notes: referral to [facility] surgery? Referral To:Edward Vasquez??Surgery ?Reason:Skin Nodule right arm pit painful 4.?Others? Refill Ventolin HFA * Aerosol Solution, 108 (90 Base) MCG/ACT, 2 puffs as needed, Inhalation, every 4 hrs, 30 days, 13, Refills 3.?? * Procedure Codes:? * Follow Up:?2 Months * * Sign off status: Completed true * Provider:?Francesco Lucero MD Date:?0 03/10/2025 Generated for Brian flood/Jack/Ignacio on:?04/06/2025 09:46 AM [...]
== END 2025-04-06 09:34 | disposition home or self-care (01) ==
LOC: HO.HGS 09:16
PROVIDERS: PCP Internal Medicine; Visit Provider Surgery
DX: L72.0 Epidermal cyst (principal)
CPT/HCPCS: 99203

== ENCOUNTER 2025-07-04 13:52 | Outpatient (REF) | payer OTHER, SELFPAY | END 2025-07-04 13:53 | disposition home or self-care (01) | LOC: HO.LNP 13:52 | PROVIDERS: PCP Internal Medicine; Visit Provider Surgery | DX: L72.0 Epidermal cyst (principal) | CPT/HCPCS: 11402; 88304 ==

== ENCOUNTER 2025-07-04 13:52 | Outpatient (AMB) | payer OTHER, SELFPAY ==
--- NOTE | 2025-07-04 14:18 | A.OFFVIS_ITS ---
Vital Signs 07/04/25 14:23 Height 5 ft 2 in Weight 178 lb BMI 32.6 BP 131/83 Blood Pressure Location Rt brachial Position Sitting Pulse 76 Intake Visit Reasons: excision skin nodule axilla painful Intake Note: Patient here for cyst excision on Rt axilla. Social Security Specialist Required: No Accompanied by: Self / Same As Patient Allergies amoxicillin (Amoxicillin) Allergy (Mild, Verified 04/06/25 09:22) HIVES, rash Penicillins Allergy (Mild, Verified 04/06/25 09:22) HIVES propranolol Adverse Reaction (Unknown, Verified 04/06/25 09:22) Wheezing HPI HPI excision skin nodule axilla painful: Details: She is here for excision of a skin cyst from the right axilla. 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 The area of the cystic induration was prepped and draped. Lidocaine 1% was used for local anesthesia. I made an elliptical incision in the skin surrounding this cystic induration with a blade 15. This was carried down through the full-thickness of the skin and subcutaneous fat to excise the entire cystic induration. This was sent as a specimen. The cyst was about 8 mm in diameter. I closed the incision with full-thickness nylon 3-0 simple interrupted sutures. Dressings were applied. The procedure was completed. She tolerated the procedure well. There were no immediate complications 19053-iyahk/arms/legs 0.6-1cm Procedure code (CPT) selection complete Assessment & Plan Assessment & Plan (1) Epidermal cyst: Code(s): L72.0 - Epidermal cyst Category: Medical Plan: Excision was done under local anesthesia. She tolerated procedure well. She was given wound care instructions. She will be seen in the office for removal sutures. Orders: Orders Surgical Today L72.0 - Epidermal cyst Coding Level of Care Code Procedure Only Diagnoses Epidermal cyst L72.0 CPT Codes Trunk/Arms/Legs - CPT: 33532-haczw/arms/legs 0.6-1cm ([id number])
[2025-07-04 14:23] VITALS: BP 131/83; PULSE 76; BMI 32.6
== END 2025-07-04 14:48 | disposition home or self-care (01) ==
LOC: HO.HGS 13:53
PROVIDERS: PCP Internal Medicine; Visit Provider Surgery
DX: L72.0 Epidermal cyst (principal)
CPT/HCPCS: 11402

== ENCOUNTER 2025-07-18 13:16 | Outpatient (AMB) | payer OTHER, SELFPAY ==
--- OUTSIDE RECORDS SUMMARY | 2025-05-17 05:54 | XMS_ITS ---
Author Organization Francesco Lucero MD Address [address] [place] [phone] Care Team Providers Care Sample Tailor Name Role Phone Francesco Lucero Primary Care Provider REASON FOR VISIT Appointment Cancelation Encounters Encounter Location Date Provider Diagnosis Francesco Lucero MD 10 [facility] [address] [place] [phone] 05/17/2025 Francesco Lucero Plan Of Treatment Next Appt Details Provider Name:Francesco Pressley ier, 01/23/2026 07:15:00 AM, [address] [place] [address], [address], [phone], Provider Name:Francesco Pressley ieshima, 01/30/2026 08:30:00 AM, [address] [place] [address], [address], [phone], Progress Notes * Marietta CORTEZ KDOB: 9 (45 yo F)Acc No.[id number]:05/17/2025 Patient: Raghu RUELAS Marietta Bernabe :1980 A ge:45 Y S ex:Female Address:[address] [place] [phone] * true * Date: Generated for Printi ng/Faxing/eTransmitting on: 0 07/18/2025 02:38 PM EDT
--- OUTSIDE RECORDS SUMMARY | 2025-05-17 10:45 | XMS_ITS ---
Author Organization Francesco Lucero MD Address [address] [place] [address] [place] [address] [phone] Care Team Providers Care Mission Commander Name Role Phone Francesco Lucero Primary Care Provider REASON FOR VISIT RE:Appointment Cancelation Encounters Encounter Location Date Provider Diagnosis Francesco Lucero MD [address] [place] [address] [address] [place] [address] [phone] 05/17/2025 Francesco Lucero Plan Of Treatment Next Appt Details Provider Name:Francesco Pressley ier, 01/23/2026 07:15:00 AM, [address] [place] [address], [phone], Provider Name:Francesco Pressley ier, 01/30/2026 08:30:00 AM, [address] [place] [address], [phone], Progress Notes * Marietta CORTEZ KDOB: 9 (45 yo F)Acc No.[id number]:05/17/2025 Patient: Raghu RUELAS Marietta Bernabe :1980 A ge:45 Y S ex:Female Address:[address] [place] [phone] * true * Date: Generated for Printi ng/Faxing/eTransmitting on: 0 07/18/2025 02:38 PM EDT
--- OUTSIDE RECORDS SUMMARY | 2025-05-19 13:00 | XMS_ITS ---
Author Organization Francesco Lucero MD Address [address] [place] [address] [place] [address] [phone] Care Team Providers Care Automobile Salesman Name Role Phone Francesco Lucero Primary Care Provider [phone] Allergies Allergen (clinical drug ingredient) Drug/Non Drug Allergy documented on EMR Reaction Allergy Type Onset Date Status amoxicillin amox (uncoded) rash Allergy Act arvin penicillin (uncoded) rash Allergy Active REASON FOR VISIT 2 month Encounters Encounter Location Date Provider Diagnosis Francesco Lucero MD [address] [place] [address] [place] [address] [phone] 05/19/2025 Francesco Lucero Plan Of Treatment Next Appt Details Provider Name:Francesco salas, 01/23/2026 07:15:00 AM, [address] [place] [address], [address], [phone], Provider Name:Francesco salas, 01/30/2026 08:30:00 AM, [address] [place] [address], [phone], Progress Notes * Marietta CORTEZ KDOB: 9 (45 yo F)Acc No.[id number]:05/19/2025 Progress Notes Patient: Raghu Marietta RUELAS Provider: Maliha Lucero MD :1980 A ge:45 Y S ex:Female Date:05/19/2025 Address:[address] [place], [place] [address]Oh [facility]ED-[id number] Subjective: * Chief Complaints: * 1 . 2 month. * ROS: G eneral/Constitutional: Denies C hills. D enies F atigue. D enies F ever. E NT: Denies S ore throat. R espiratory: Denies S hortness of breath at rest. D enies S hortness of breath with exertion. G astrointestinal: Denies D iarrhea. D enies N ausea. 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 * Allergies: P enicillin: Rash, Amox: [...] 05/19/2025 Generated for Brian flood/Jack/Kareyitting on: 0 07/18/2025 02:38 PM EDT
--- OUTSIDE RECORDS SUMMARY | 2025-06-02 05:20 | XMS_ITS ---
Author Organization [facility] Address [address] [place] [phone] Care Team Providers Care Systematic Theology Professor Name Role Phone Nic NELSON, Francesco Primary Care Provider Farhan Jha [phone] REASON FOR VISIT Patient presents today for a colon screening Encounters Encounter Location Date Provider Diagnosis [facility] [address] [place] [phone] 06/02/2025 Farhan Mazariegos Plan Of Treatment Next Appt Details Provider Name:Farhan Mendoza Delilah , 10/13/2025 09:20:00 AM, [address], [place], [phone], Progress Notes * LAMBERTO DAVEDOB:1980 (45 yo F)Acc No.[id number]:06/02/2025 Progress Notes Patient: LAMBERTO VICK Provider: Radha Mazariegos MD :1980 A ge:45 Y S ex:Female Date:06/02/2025 Address:[address] [place], [place] [phone] Pcp:Francesco Lucero MD Subjective: * Chief Complaints: [...] Date: 06/02/2025 Generated for Brian flood/Fascottg/eTransmitting on: 07/18/2025 02:38 PM EDT
--- NOTE | 2025-07-18 13:27 | MHC.OFFVIS ---
Vital Signs 07/18/25 13:28 Height 5 ft 2 in Weight 179 lb BMI 32.7 BP 124/72 Blood Pressure Location Rt brachial Position Sitting Pulse 78 Intake Visit Reasons: 2wk s/p skin nodule Intake Note: Patient here s/p cyst excision on Rt axilla on 07-04-2025. Patient c/o: no concerns. Reports incision healing well. Ventilation Equipment Tender Required: No Accompanied by: Self / Same As Patient Allergies amoxicillin (Amoxicillin) Allergy (Mild, Verified 07/18/25 13:28) HIVES, rash Penicillins Allergy (Mild, Verified 07/18/25 13:28) HIVES propranolol Adverse Reaction (Unknown, Verified 07/18/25 13:28) Wheezing HPI HPI 2wk s/p skin nodule: Details: She had undergone excision of a cyst from the right axilla under local anesthesia last 07/05/2025. She tolerated the procedure well and currently denies complaints. 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 I removed all her sutures. Her path report shows a ruptured epidermal cyst. The incision is well healed. She can follow up on a p.r.n. basis. Coding Level of Care Code Global (07981) Diagnoses Epidermal cyst L72.0
[2025-07-18 13:28] VITALS: BP 124/72; PULSE 78; BMI 32.7
--- OUTSIDE RECORDS SUMMARY | 2025-07-18 14:38 | XMS_ITS | Patient Health Record ---
Author Organization Francesco Lucero MD Address [address] [place], [place] [id number] Care Team Providers Care Sanforizing Machine Operator Name Role Phone Francesco Lucero Primary Care Provider [phone] Allergies Allergen (clinical drug ingredient) Drug/Non Drug Allergy documented on EMR Reaction Allergy Type Onset Date Status amoxicillin amox (uncoded) rash Allergy Act arvin penicillin (uncoded) rash Allergy Active Results Component Value Reference Range Notes Complete Blood Count Auto Di ff Reviewed date:10/29/2024 12:27:58 PM Interpretation: Performing Lab:[facility], [address] [place] [phone] Notes/Report: White Blood Count 8.0 4.8-10.8 X10*3/uL [...] 0.0-0.2 /100WBC Neutrophils Absolute Auto 4.4 2.0-8.3 x10*3/uL Imm Gran Abs Auto 0.02 0.00-0.03 X10*3/uL Lymphocytes Absolute Auto 1.9 1.2-4.9 X10*3/uL Monocytes Absolute Auto 0.9 0.1-1.2 X10*3/uL Eosinophils Absolute Auto 0.7 0.0-0.4 X10*3/uL Basophils Absolute Auto 0.1 0.0-0.2 X10*3/uL NRBC Abs Auto 0.000 0.0-0.012 X10*3/uL Comprehensive [place]. Panel Fa st Reviewed date:10/29/2024 12:29:22 PM Interpretation: Performing Lab:[address] [phone] Notes/Report: Sodium 143 135-145 mmol/L Potassium 4.5 [...] Panel Reviewed date:10/29/2024 12:26:40 PM Interpretation: Performing Lab:[facility], [address] [place] [phone] Notes/Report: Triglycerides 108 <150 mg/dL Desirable Triglyceride: [...] T4 Reviewed date:10/29/2024 12:28:07 PM Interpretation: Performing Lab:[facility], [address] [place] [phone] Notes/Report: TSH reflex Free T4 0.32 0.32-4.0 uIU/mL Brenda Matta Reviewed date:10/29/2024 12:29:02 PM Interpretation: Performing Lab:[facility], [address] [place] [phone] Notes/Report: Brenda Matta See Note Specimen held untested for 24 hours; Call to request Chemistry testing. UA CC w/rflx Micro + Cult Reviewed date:10/29/2024 12:31:30 PM Interpretation: Performing Lab:[facility], [address] [place] [phone] Notes/Report: Urine, Clean Catch Color Urine Yellow Appearance Urine Clear PH 5.5 5.0-9.0 Glucose Urine UA Negative Negative mg/dL Urine Blood Negative Negative Specific [place] - Urine 1.015 1.005-1.025 Urine Protein Negative Neg-Trace mg/dL Urine Ketones Negative Negative mg/dL Nitrite Urine Negative Negative Leukocyte Esterase Urine Negative Negative XR chest 2V Reviewed date:12/31/2024 10:42:23 AM Interpretation: Performing Lab: Notes/Report: [address] [address] XRay Report Signed Patient: Marietta Dave MR#: [id number] 11 : 1980 Acct:[id number] Age/Sex: 44 / F ADM Date: 12/30/24 Loc: .ED Attending Dr: Ordering Physician: Nate Cuevas MD Date of Service: 12/30/24 Procedure(s): XR chest 2V Accession Number(s): [id number] cc: Francesco Lucero MD; Nate Cuevas MD [...] in OV> 12/30/242207 DD/ 06 TD/TT: 12/30/242206 Train Driver: [place] [address] XRay Report Signed Patient: Marcial Dave MR#: [id number] 11 : 1980 Acct:[id number] Age/Sex: 44 / F ADM Date: 12/30/24 Loc: .ED Attending Dr: Ordering Physician: Nate Cuevas MD Date of Service: 12/30/24 Procedure(s): XR chest 2V Accession Number(s): [id number] cc: Francesco Lucero MD; Nate Cuevas MD CLINICAL HISTORY: sob 2 view chest x-ray Comparison: DX/SR - XR CHEST 2V - 02/26/24 15:04 EDT Findings: No consolidation or effusion. Heart size is normal. No acute fracture. IMPRESSION: 1. No acute findings. This document has be en electronically signed by: Belinda Medina MD on 12/30/2024 22:07:15 Dictated By: Belinda Medina MD Signed By: <Electron ically signed by Belinda Medina MD in OV> 12/30/242207 DD/ 06 TD/TT: 12/30/242206 Train Driver: MM tomosynthesis screening B I Reviewed date:01/11/2025 04:55:27 PM Interpretation: Performing Lab: Notes/Report: [address] [place], [place] [address] Mammography Report Signed Patient: Marietta Dave MR#: [id number] 11 : 1980 Acct:[id number] Age/Sex: 44 / F ADM Date: 01/04/25 Loc: HO.MAMMO Attending Dr: Francesco Lucero MD Ordering Physician: Francesco Lucero MD Results: 2Be nign Findings Date of Service: 01/04/25 Follow Up: 1 Year From Orig ina Mammogram Procedure(s): MM tomosynthesis screening BI Accession Number(s): [id number] cc: Francesco Lucero MD EXAMINATION: MM SCREENING [...] by: Emilie Antonio DO 01/11/2025 04:39 PM EST Dictated By: Emilie Antonio DO Signed By: <Electronically signed by Emilie Antonio DO in OV> 01/11/25 1639 DD/ 0745 TD/TT: 01/04/25 0749 Train Driver: [address] [place], [place] [address] Mammography Report Signed Patient: Marcial Dave MR#: [id number] 11 : 1980 Acct:[id number] Age/Sex: 44 / F ADM Date: 01/04/25 Loc: HO.MAMMO Attending Dr: Francesco Lucero MD Ordering Physician: Francesco Lucero MD Results: 2Be nign Findings Date of Service: 10/18 Follow Up: 1 Year From Orig inal Mammogram Procedure(s): MM tomosynthesis screening BI Accession Number(s): [id number] cc: Francesco Lucero MD EXAMINATION: MM SCREENING DIGITAL BREAST TOMOSYNTHESIS, BILATERAL CLINICAL INFORMATION: Screening. Asymptomatic. COMPARISON: Mammography: Compari son is made with available priors TECHNIQUE: Digital breast mammo graphy with tomosynthesis is performed in both the craniocaudal and mediolateral oblique views along with computer-aided detection (CAD). FINDINGS: There are scattered areas of fibroglandular density (ACR BI-RADS breast composition Category b). Bilateral scattered asymmetries and circumscribed oval masses which wax and wane consistent with benign fibrocystic changes. There are no signifi cant masses, abnormal calcifications, or other abnormalities. M M/MM tomosynthesis screening BI IMPRESSION: No mammographic evid ence of malignancy. ASSESSMENT: BI-RADS BI-RADS 2 - Benign Findings RECOMMENDATION: Routine annual mammo graphy screening. 1 year F/U This examination kenisha uld not preclude the clinical evaluation of a suspicious palpable abnormality. This patient's infor mation was entered into a reminder system with a target due date for their next mammogram. Electronically dianna d by: Emilie Antonio DO 01/11/2025 04:39 PM EST Dictated By: Emilie Antonio DO Signed By: <Electron icallshayan signed by Emilie Antonio DO in OV> 01/11/25 1639 DD/ 0745 TD/TT: 01/04/25 0749 Train Driver: Pathology Reviewed date:07/06/2025 02:08:06 PM Interpretation: Performing Lab:[facility], [address] [place] [address] Notes/Report: ------ Name: Marietta Dave Age/Sex: 45/F : 1980 Unit#: [id number] Attend Dr: Chepe Stock MD Re07/04/25 Status : DEP REF Location: [facility] Disch: ------ SPEC : [id number] RECD : 07/05/25469 STATUS: RICKY MARTIN NUM: [id number] LINA: 07/04/25-1430 [facility] DR: Chepe Stock MD ENTERED: 07/05/25-08 SP TYPE: Surgical OTHR DR: Francesco Lucero MD ORDERED: Gross Micro L3 Diagnosis Skin, right axilla c yst, excision: Ruptured benign epidermal cyst, with fibrosis, inflammation, and fo reign body giant cell reaction to keratin debris. Clinical History Right axilla, EIC Microscopic Description Microscopic sections reviewed. Material Received Right axilla, EIC Gross Description Received in formalin labeled ?right axilla? is a 1.5 x 1.2 cm ellipse of manzo skin and subcutaneous tissue excised to a maximum depth of 0.8 cm. The skin surface is diffusely velvety manzo. The mar gins are inked and the specimen is serially sectioned to reveal a 0.6 x 0.6 x 0.35 cm clefte d nodule within the dermal and subcutaneous tissues with variegated, manzo-white and manzo-pi nk cut surfaces. The specimen is entirely submitted in a cassette labeled A. CEDS IHC S/NG Disclaimer NOTE: Unless otherwi se stated, all tissue is formalin-fixed and paraffin-embedded. Some or all of the immunohistochemical tests reported herein may have been developed and their performance characteristics determined by [facility]. They have not been cleared or appr anya by the U.S. Food and Drug Administration (FDA). However, the FDA has determined that such clearance or approval is not necessary. This laboratory is certified under the Clinical Laboratory Improvement Amendments of 1988 (CLIA) as qualified to perform high comp lexity clinical laboratory testing. Copies To: Francesco Lucero MD [facility] [address] [place] [address] CONTINUED ON NEXT PAGE ------ Name: Marietta Dave Age/Sex: 45/F : 1980 Unit#: [id number] Attend Dr: Chepe Stock MD Re07/04/25 Status : DEP REF Location: [facility] Disch: ------ SPEC : [id number] RECD : 07/05/25-6607 STATUS: RICKY MARTIN NUM: [id number] LINA: 07/04/25-683[facility] DR: Chepe Stock MD ENTERED: 07/05/25- SP TYPE: Surgical OTHR DR: Francesco Lcuero MD ORDERED: Gross Micro L3 Copies To: (Continued) Chepe Stock MD [facility] [address] [place] [address] ------ Signed (signature on file) [facility] 07/06/25 1120 ------ END OF REPORT Reason For Referral Reason SCREEN FOR COLON [...] Referral Priority Routine Referral Appointment Date 10/13/2025 Reason Skin Nodule right ar m pit painful Diagnosis 1 Skin nodule (R22.9) Referral Organization Francesco Lucero MD Referring Provider First Name Francesco Referring Provider Last Name Nic Referring Provider Speciality Internal M edicine Referred Provider Edward Vasquez Referred Provider Specialty Surgery General Notes RanjanaCodieMartha 0 03/10/2025 08:16:41 AM >Called patient with info and mailed Referral Priority Routine Referral Appointment Date 03/16/2025 Medications Medication SIG (Take, Route, Frequency, Duration) Notes Start Date End Date Status Albuterol Sulfate HFA 108 (90 Base) MCG/ACT INHALE 1 PUFF BY MOUTH EVERY 4 HOURS NEEDED FOR 30 DAYS Active Levothyroxine Sodium 112 MCG TAKE 1 TABLET BY MOUTH EVERY DAY IN THE MORNING ON AN EMPTY STOMACH for 90 Active Ibuprofen 800 MG 1 [...] Active buPROPion HCl ER (XL) 150 MG TAKE 1 TABLET BY MOUTH EVERY DAY IN THE MORNING FOR 30 DAYS for 90 Active Zomig 2.5 MG 1 tablet Orally [...] Problem Status W/U Status Risk Notes Problem 57423808 Anxiety (F41.9) Active confirmed Problem 116515044 Acquired hypothyroidism (E03.9) Active confirmed Problem 776159789 Mild intermitten t asthma without complication (J45.20) Active confirmed Problem Alcohol abuse (44805853) Alcohol abuse (F10.10) Active confirmed Problem 9591638 Migraine with au ra and without status migrainosus, not intractable (G43.109) Active confirmed Problem Dysthymia (51407455) Dysthymia (F34.1) Active confirmed Problem 916208876 Vaginal bleeding (N93.9) Active confirmed Problem Obsessive-com pulsive disorder (638842260) Obsessive thinking (F42.8) Active confirmed Vital Signs [...] Location Date Provider Diagnosis Francesco Lucero MD [address] [place] [id number] 10/29/2024 Francesco Lucero Blood tests for routine general physical examination Z00.00 and Acquired hypothyroidism E03.9 Francesco Lucero MD [address] [place] [address] Drive [address] [place] [id number] 01/25/2025 Francesco Lucero Alcohol abuse F10.10 ; Annual physical exam Z00.00 ; Dysthymia F34.1 ; Skin nodule R22.9 ; Acquired hypothyroidism E03.9 ; Mild intermittent asthma without complication J45.20 and Depression screening Z13.31 Francesco Lucero MD [address] [place] [id number] 03/10/2025 Francesco Lucero Mild intermittent asthma without complication J45.20 ; Dysthymia F34.1 and Skin nodule R22.9 Francesco Lucero MD [address] [place] [address] [id number] 12/31/2024 Francesco Lucero MD [address] [place] [address] [id number] 10/25/2024 Francesco Lucero MD [address] [place] [address] [id number] 11/04/2024 Francesco Lucero MD [address] [place] [address] [id number] 03/01/2025 Francesco Lucero MD [address] [place] [address] [id number] 05/17/2025 Francesco Lucero MD [address] [place] [id number] 05/17/2025 Francesco Lucero Assessments Encounter Date Diagnosis (ICD Code) Assessment Notes Treatment Notes Treatment Clinical Notes Section Notes 10/29/2024 Blood tests for routine general physical examination (ICD-10 - Z00.00) 10/29/2024 Acquired hypothyroidism (ICD-10 - E03.9) 01/25/2025 Alcohol abuse (ICD-10 - F10.10) has [...] Skin nodule (ICD-10 - R22.9) referral to [facility] surgery 01/25/2025 Skin nodule (ICD-10 - R22.9) [...] screen 01/25/2025 Other REFERRAL FAXED TO [facility] FOR NEW PATIENT APPT Plan Of Treatment Pending Test Test Name Order Date Electrocardiogram (EKG) 09/16/2011 MRI BRAIN NO CONTRAST 03/03/2023 XR CHEST 2 VIEW PA & LAT 02/26/2024 TSH (THYROID STIMULATING HORMONE) 2018 Future Test Test Name Order Date MRI BRAIN NO CONTRAST 09/17/2023 Next Appt Details Provider Name:Francesco Pressley ier, 01/23/2026 07:15:00 AM, [address] [place] [address], [address], [phone], Provider Name:Francesco Pressley ier, 01/30/2026 08:30:00 AM, [address] [place] [address], [address], [phone], Insurance Providers Payer Name Payer Address Payer Phone Subscriber Number Group Number Insured Name Patient Relationship to Insured Coverage Start Date Coverage End Date [facility] [address] [place] [employer] [address] [facility] [id number] [phone] [id number] Marietta Dave Self - patient is the insured Medical (General) History Medical History History ICD Code 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 Soler
--- OUTSIDE RECORDS SUMMARY | 2025-07-18 14:38 | XMS_ITS | Patient Health Record ---
Author Organization [facility] Address [address] [place] [address] Care Team Providers Care Glue Cook Name Role Phone Francesco Lucero MD Primary Care Provider Farhan Jha [phone] Reason For Referral No Information Encounters Encounter Location Date Provider Diagnosis [facility] [address] [place] [address] 06/01/2025 Farhan Mazariegos Plan Of Treatment Next Appt Details Provider Name:Farhan Mazariegos , 10/13/2025 09:20:00 AM, [address], [address], [place], [address], Insurance Providers Payer Name Payer Address Payer Phone Subscriber Number Group Number Insured Name Patient Relationship to Insured Coverage Start Date Coverage End Date [facility] [address] [place] [phone] [id number] LAMBERTO DAVE Self - patient is the insured
== END 2025-07-18 13:36 | disposition home or self-care (01) ==
LOC: HO.HGS 13:17
PROVIDERS: PCP Internal Medicine; Visit Provider Surgery
DX: L72.0 Epidermal cyst (principal)
CPT/HCPCS: 99024

== ENCOUNTER 2025-08-10 13:55 | Outpatient (AMB) | payer OTHER, SELFPAY ==
--- OUTSIDE RECORDS SUMMARY | 2025-03-01 10:09 | XMS_ITS ---
Author Organization Francesco Lucero MD Address [address] [place] [address] [place] [phone] Care Team Providers Care Digital Solution Architect Name Role Phone Francesco Lucero Primary Care Provider REASON FOR VISIT New Refill Request Medications Medication SIG (Take, Route, Frequency, Duration) Notes Start Date End Date Status Albuterol Sulfate HFA 108 (90 Base) MCG/ACT INHALE 1 PUFF BY MOUTH EVERY 4 HOURS NEEDED FOR 30 DAYS for 20 Active Encounters Encounter Location Date Provider Diagnosis Francesco Lucero MD [address] [place] [address] [place] [phone] 03/01/2025 Francesco Lucero Plan Of Treatment Medication Medication Name Sig Start Date Stop Date Notes Albuterol Sulfate HFA 108 (9 0 Base) MCG/ACT INHALE 1 PUFF BY MOUTH EVERY 4 HOURS NEEDED FOR 30 DAYS for 20 Next Appt Details Provider Name:Francesco salsa, 01/23/2026 07:15:00 AM, [address] [place] [address], [address], [phone], Provider Name:Francesco salas, 01/30/2026 08:30:00 AM, [address] [place] [address], [address], [phone], Progress Notes * Marietta CORTEZ KDOB: 9 (44 yo F)Acc No.[id number]:03/01/2025 Patient: Raghu Marietta RUELAS :1980 A ge:44 Y S ex:Female Address:[address] [place] [phone] * Refills Refill Albuterol Sulfate HFA Aerosol Solution, 108 (90 Base) MCG/ACT, 8.5 Each, INHALE 1 PUFF BY MOUTH EVERY 4 HOURS NEEDED FOR 30 DAYS, 20, Refills=3 * true * Date: Generated for Brian flood/Jack/Kareyitting on: 0 08/10/2025 05:34 PM EDT
--- OUTSIDE RECORDS SUMMARY | 2025-03-10 03:45 | XMS_ITS ---
Author Organization Francesco Lucero MD Address [address] [place], [place] [phone] Care Team Providers Care Firm Administrator Name Role Phone Francesco Lucero Primary Care Provider [phone] Allergies Allergen (clinical drug ingredient) Drug/Non Drug [...] kg/m2 03/10/2025 weight is down 5 pounds [facility] e 01-25-25 Encounters Encounter Location Date Provider Diagnosis Francesco Lucero MD [address] [place] [address] [place] [phone] 03/10/2025 Francesco Lucero Mild intermittent asthma without [...] Skin nodule (ICD-10 - R22.9) referral to [facility] [place] Plan Of Treatment Medication Medication Name [...] ntnue current regiment Skin nodule referral [place] [facility] [place] stephen Referrals Referral Date Details 03/10/2025 03/10/2025, Skin Nod ule right arm pit painful, Edward Pedro Next Appt Details Follow Up: 2 Months, Reason: Provider Name:Francesco Pressley ier, 01/23/2026 07:15:00 AM, [address], [address], [place], [place], [phone], Provider Name:Francesco Pressley ier, 01/30/2026 08:30:00 AM, [address], [address], [place], [place], [phone], Progress Notes * BRENDAZEN Marietta KDOB: [birth year] (44 yo F)Acc No.[id number]:03/10/2025 Progress Notes Patient: Marietta VICK Provider: Maliha Lucero MD :1980 A ge:44 Y S ex:Female Date:03/10/2025 Address:[address] [place] [phone] Subjective: * Chief Complaints: * 6 WK [...] 3. S kin nodule Notes: referral to [facility] [place] Referral To:Edward Vasquez Surgery Reason:Skin Nodule [...] 0 03/10/2025 Generated for Brian flood/Jack/Rosannasmitting on: 0 08/10/2025 05:35 PM EDT History and Physical Notes * HPI (History [...]
--- OUTSIDE RECORDS SUMMARY | 2025-05-17 05:54 | XMS_ITS ---
Author Organization Francesco Lucero MD Address [address] [facility] [address] [place] [phone] Care Team Providers Care Instructional Technology Facilitator Name Role Phone Francesco Lucero Primary Care Provider REASON FOR VISIT Appointment Cancelation Encounters Encounter Location Date Provider Diagnosis Francesco Lucero MD 10 [facility] [address] [place] [phone] 05/17/2025 Francesco Lucero Plan Of Treatment Next Appt Details Provider Name:Francesco Pressley ier, 01/23/2026 07:15:00 AM, [address] [place] [address], [address], [phone], Provider Name:Francesco Pressley ieshima, 01/30/2026 08:30:00 AM, [address] [place] [address], [address], [phone], Progress Notes * Marietta CORTEZ KDOB: 9 (45 yo F)Acc No.[id number]:05/17/2025 Patient: Raghu RUELAS Marietta Bernabe :1980 A ge:45 Y S ex:Female Address:[address] [place] [phone] * true * Date: Generated for Printi ng/Faxing/eTransmitting on: 0 08/10/2025 05:35 PM EDT
--- OUTSIDE RECORDS SUMMARY | 2025-05-17 10:45 | XMS_ITS ---
Author Organization Francesco Lucero MD Address 10 [facility] [address] [place] [address] [phone] Care Team Providers Care Mayonnaise Mixer Name Role Phone Francesco Lucero Primary Care Provider REASON FOR VISIT RE:Appointment Cancelation Encounters Encounter Location Date Provider Diagnosis Francesco Lucero MD [address] [place] [address] [place] [address] [phone] 05/17/2025 Francesco Lucero Plan Of Treatment Next Appt Details Provider Name:Francesco Pressley ier, 01/23/2026 07:15:00 AM, [address] [place] [address], [phone], Provider Name:Francesco Pressley ier, 01/30/2026 08:30:00 AM, [address] [place] [address], [phone], Progress Notes * Marietta CORTEZ KDOB: 9 (45 yo F)Acc No.[id number]:05/17/2025 Patient: Raghu RUELAS Marietta Bernabe :1980 A ge:45 Y S ex:Female Address:[address] [place] [phone] * true * Date: Generated for Printi ng/Faxing/eTransmitting on: 0 08/10/2025 05:34 PM EDT
--- OUTSIDE RECORDS SUMMARY | 2025-05-19 13:00 | XMS_ITS ---
Author Organization Francesco Lucero MD Address [address] [place] [address] [place] [address] [phone] Care Team Providers Care Operations Lead Name Role Phone Francesco Lucero Primary Care Provider [phone] Allergies Allergen (clinical drug ingredient) Drug/Non Drug Allergy documented on EMR Reaction Allergy Type Onset Date Status amoxicillin amox (uncoded) rash Allergy Act arvin penicillin (uncoded) rash Allergy Active REASON FOR VISIT 2 month Encounters Encounter Location Date Provider Diagnosis Francesco Lucero MD [address] [place] [address] [place] [address] [phone] 05/19/2025 Francesco Lucero Plan Of Treatment Next Appt Details Provider Name:Francesco salas, 01/23/2026 07:15:00 AM, [address] [place] [address], [address], [phone], Provider Name:Francesco salas, 01/30/2026 08:30:00 AM, [address] [place] [address], [phone], Progress Notes * Marietta CORTEZ KDOB: 9 (45 yo F)Acc No.[id number]:05/19/2025 Progress Notes Patient: Raghu Marietta RUELAS Provider: Maliha Lucreo MD :1980 A ge:45 Y S ex:Female Date:05/19/2025 Address:[address] [place], [place] [address]Oh [facility]-[id number] Subjective: * Chief Complaints: * 1 . 2 month. * ROS: G eneral/Constitutional: Denies C hills. D enies F atigue. D enies F ever. E NT: Denies S ore throat. R espiratory: Denies S hortness of breath at rest. D enies S hortness of breath with exertion. G astrointestinal: Denies D iarrhea. D enies N ausea. 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 * Allergies: P enicillin: Rash, Amox: Rash. Objective: * Vitals: Assessment: Plan: * Treatment: * * The named appointment provid er may or may not be the originator of this progress note, and it is not deemed complete until electronically signed by the appointment provider. Sign off status: Pending * Provider: Maliha Lucero MD Date: 0 05/19/2025 Generated for Brian flood/Jack/Kareyitting on: 0 08/10/2025 05:35 PM EDT
--- OUTSIDE RECORDS SUMMARY | 2025-06-02 05:20 | XMS_ITS ---
Author Organization [facility] Address [address] [place] [phone] Care Team Providers Care Map Mounter Name Role Phone Nic NELSON, Francesco Primary Care Provider Farhan Jha [phone] REASON FOR VISIT Patient presents today for a colon screening Encounters Encounter Location Date Provider Diagnosis [facility] [address] [place] [phone] 06/02/2025 Farhan Mazariegos Plan Of Treatment Next Appt Details Provider Name:Farhan Mendoza Delilah , 10/13/2025 09:20:00 AM, [address], [place], [address], Progress Notes * LAMBERTO DAVEDOB:1980 (45 yo F)Acc No.[id number]:06/02/2025 Progress Notes Patient: LAMBERTO VICK Provider: Radha Mazariegos MD :1980 A ge:45 Y S ex:Female Date:06/02/2025 Address:[address] [place], [place] [phone] Pcp:Francesco Lucero MD Subjective: * Chief Complaints: [...] Pending * Provider: Radha Mazariegos MD Date: 06/02/2025 Generated for Brian flood/Fascottg/eTransmitting on: 08/10/2025 05:35 PM EDT
--- NOTE | 2025-08-10 13:56 | MHC.OFFVIS ---
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 History of migraines with aura. Additionally experiencing night sweats. Has gained weight, admits to not eating as healthy, limited exercise. History of tubal ligation. Currently is sexually active. She denies vaginal itching or irritation. STI screening offered; she accepts. Denies family history of breast, ovarian or colon cancer. Last pap smear cervical biopsies to 05/2024, negative. [facility] Labs: December 2024-hemoglobin 15.1, 10/2024 TSH-0.32. Mammogram: 2024. 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 Sexual orientation: Straight/Heterosexual Gender identity: Female Female Reproductive History Menstrual Age of Menarche: 14 Duration of menses: 3-5 days Date of last menstrual period: 08/02/25 control method: pills Total pregnancies: 4 Full term: 3 Date of last pap smear: 06/03/24 (negative pap smear, negative hpv) History of abnormal pap smear: Yes (Leep 2003) Date of Mammogram: 01/04/25 (bi rad 2) Review of Systems Const All systems reviewed & are unremarkable except as noted in HPI and below Reports as per HPI Eyes Reports no additional complaints ENT Reports no additional complaints Card Reports no additional complaints Resp Reports no additional complaints GI Reports as per HPI and Reports no additional complaints Reports as per HPI Musc Reports no additional complaints Skin/Breast Reports as per HPI Neuro Reports no additional complaints Psych Reports no additional complaints Endo Reports no additional complaints Carlos/Lymph Reports no additional complaints Aller/Immun Reports no additional complaints Physical Exam Vital Signs: Last Vital Signs BP 120/82 08/10/25 14:05 BMI result Body Mass Index 32.7 Const General: cooperative, healthy appearing, no acute distress, well developed and alert Orientation/consciousness: patient oriented x3 HEENT Head: Yes normal to inspection Eyes General: appearance normal, both eyes and all related structures Neck Neck: Yes normal visual inspection Thyroid: Thyroid normal Chest Chest palpation & inspection: normal inspection of the chest and other (no puckering, dimpling, peau de orange, retraction, discharge, masses) Breast/axilla inspection: normal inspection of the breasts Breast/axilla palpation: normal palpation of the breasts Resp Effort & Inspection: normal respiratory effort GI Inspection: Yes normal to inspection Palpation (GI): Soft to palpation Rectal Exam - Female: deferred General: Yes bladder normal to palpation External Female Exam: normal external appearance and normal appearance of the urethra Speculum Exam - Vagina: normal appearance of the vagina, normal palpation and normal vaginal discharge Speculum Exam - Cervix: normal appearance of the cervix, normal palpation and Other cervical findings present (Post LEEP appearance, bled with the Pap) Bimanual exam- vagina & uterus: normal bimanual exam, normal palpation, uterine size normal, bladder normal to palpation, normal palpation and non-tender Bimanual Exam- Adnexa, other: no masses Skin General skin exam: no rashes or lesions noted Rashes: no rashes Neuro General: patient oriented x3 Cognition (Neuro): normal cognition Extrem General: Yes normal to inspection Psych Attitude: cooperative Thought process: Normal thought process present Assessment & Plan Assessment & Plan (1) Encounter for well woman exam with routine gynecological exam: Code(s): Z01.419 - Encounter for gynecological examination (general) (routine) without abnormal findings Category: Medical Plan: Discussed: Current recommendations for pap smears per ASCCP guidelines. Breast awareness and periodic breast exams. Mammogram yearly. Maintain a healthy lifestyle including a well balanced diet and routine exercise. Counseled regarding perimenopausal changes information provided regarding website literature and resources. control hormone use warnings: go to ER if and loss of vision, blindness, severe headache, chest pain or difficulty breathing, severe abdominal pain, or any pain or swelling in an extremity. Patient verbalizes understanding and agrees to the plan of care. She was given opportunity to ask questions and all questions were answered to the best of my ability. RTO in one year for annual machine filler examination. This note is constructed using voice recognition software. While every effort has been made to ensure accuracy, shipmaster errors may have been included. (2) Abnormal uterine bleeding (AUB): Code(s): N93.9 - Abnormal uterine and vaginal bleeding, unspecified Category: Medical Plan Discussed: Workup for EMB to include pelvic ultrasound, cervical cultures, up-to-date Pap smear, EMB procedure at her follow up. EMB procedure anticipatory guidance reviewed including having something to eat and drink taking 3 ibuprofen tablets 1 hour before procedure time. Reviewed procedure, and purpose of procedure to obtain endometrial cells to rule out atypia, hyperplasia, precancer, or cancer. The patient expressed understanding and agreement with the plan of care. All of her questions and concerns were addressed to the best of my ability. Total time I personally spent on visit and management today: ?20 minutes. Time spent included review of pertinent office notes in the electronic health record; review of laboratory and imaging results; review of personal family medical history; performing physical exam; discussing diagnosis and plan of care with the patient; documenting the encounter in the EMR. This note is constructed using voice recognition software. While every effort has been made to ensure accuracy, shipmaster errors may have been included. Orders: Orders Thyroid Stimulating Hormone Today N92.1 - Excessive and frequent menstruation with irregular cycle CT NG by PCR Vag/Cerv Today N93.9 - Abnormal uterine and vaginal bleeding, unspecified Pap Smear Today R87.610 - Atypical squamous cells of undetermined significance on cytologic smear of cervix (ASC-US), Z01.419 - Encounter for gynecological examination (general) (routine) without abnormal findings US pelvic and transvaginal Today N93.9 - Abnormal uterine and vaginal bleeding, unspecified Vitamin D 25-OH (D2 and D3) Today R53.83 - Other fatigue Bacterial Vaginosis Panel Today N93.9 - Abnormal uterine and vaginal bleeding, unspecified HPV High risk Today R87.610 - Atypical squamous cells of undetermined significance on cytologic smear of cervix (ASC-US), Z01.419 - Encounter for gynecological examination (general) (routine) without abnormal findings Medications: Refilled norethindrone (contraceptive) 0.35 mg PO DAILY 84 tabs 4RF 84 days Coding Level of Care Code Est Pt Level 2 (26800) Est Pt Prev Care 40-64y(22135) Diagnoses Encounter for well woman exam with routine gynecological exam Z01.419 Abnormal uterine bleeding (AUB) N93.9
[2025-08-10 14:05] VITALS: BP 120/82; BMI 32.7
--- OUTSIDE RECORDS SUMMARY | 2025-08-10 17:34 | XMS_ITS | Patient Health Record ---
Author Organization Francesco Lucero MD Address [address] [place], [place] [id number] Care Team Providers Care Solar Project Engineer Name Role Phone Francesco Lucero Primary Care Provider [phone] Allergies Allergen (clinical drug ingredient) Drug/Non Drug Allergy documented on EMR Reaction Allergy Type Onset Date Status amoxicillin amox (uncoded) rash Allergy Act arvin penicillin (uncoded) rash Allergy Active Results Component Value Reference Range Notes Complete Blood Count Auto Di ff Reviewed date:10/29/2024 12:27:58 PM Interpretation: Performing Lab:[facility], [address] [place] [phone] Notes/Report: White Blood Count 8.0 4.8-10.8 X10*3/uL [...] NRBC Abs Auto 0.000 0.0-0.012 X10*3/uL Comprehensive Foster. Panel Fa st Reviewed date:10/29/2024 12:29:22 PM Interpretation: Performing Lab:[address] [phone] Notes/Report: Sodium 143 135-145 mmol/L Potassium 4.5 [...] Panel Reviewed date:10/29/2024 12:26:40 PM Interpretation: Performing Lab:[facility], [address] [place] [phone] Notes/Report: Triglycerides 108 <150 mg/dL Desirable Triglyceride: [...] T4 Reviewed date:10/29/2024 12:28:07 PM Interpretation: Performing Lab:[facility], [address] [place] [phone] Notes/Report: TSH reflex Free T4 0.32 0.32-4.0 uIU/mL Brenda Matta Reviewed date:10/29/2024 12:29:02 PM Interpretation: Performing Lab:[facility], [address] [place] [phone] Notes/Report: Brenda Matta See Note Specimen held untested for 24 hours; Call to request Chemistry testing. UA CC w/rflx Micro + Cult Reviewed date:10/29/2024 12:31:30 PM Interpretation: Performing Lab:[facility], [address] [place] [phone] Notes/Report: Urine, Clean Catch Color Urine Yellow Appearance Urine Clear PH 5.5 5.0-9.0 Glucose Urine UA Negative Negative mg/dL Urine Blood Negative Negative Specific [place] - Urine 1.015 1.005-1.025 Urine Protein Negative Neg-Trace mg/dL Urine Ketones Negative Negative mg/dL Nitrite Urine Negative Negative Leukocyte Esterase Urine Negative Negative XR chest 2V Reviewed date:12/31/2024 10:42:23 AM Interpretation: Performing Lab: Notes/Report: [address] [address] XRay Report Signed Patient: Marietta Dave MR#: [id number] 11 : 1980 Acct:[id number] Age/Sex: 44 / F ADM Date: 12/30/24 Loc: .ED Attending Dr: Ordering Physician: Nate Cuevas MD Date of Service: 12/30/24 Procedure(s): XR chest 2V Accession Number(s): [id number] cc: Francesco Lucero MD; Nate Cuevas MD [...] in OV> 12/30/242207 DD/ 06 TD/TT: 12/30/242206 Sql Manager: [place] [address] XRay Report Signed Patient: Marcial Dave MR#: [id number] [birth year] : 1980 Acct:[id number] Age/Sex: 44 / F ADM Date: 12/30/24 Loc: .ED Attending Dr: Ordering Physician: Nate Cuevas MD Date of Service: 12/30/24 Procedure(s): XR chest 2V Accession Number(s): [id number] cc: Francesco Lucero MD; Nate Cuevas MD [...] in OV> 12/30/242207 DD/ 06 TD/TT: 12/30/242206 Sql Manager: MM tomosynthesis screening B I Reviewed date:01/11/2025 04:55:27 PM Interpretation: Performing Lab: Notes/Report: [address] [place], [place] [address] Mammography Report Signed Patient: Marietta Dave MR#: [id number] [birth year] : 1980 Acct:[id number] Age/Sex: 44 / F ADM Date: 01/04/25 Loc: HO.MAMMO Attending Dr: Francesco Lucero MD Ordering Physician: Francesco Lucero MD Results: 2Be nign Findings Date of Service: 01/04/25 Follow Up: 1 Year From Orig ina Mammogram Procedure(s): MM tomosynthesis screening BI Accession Number(s): [id number] cc: Francesco Lucero MD EXAMINATION: MM SCREENING [...] 01/11/25 1639 DD/ 0745 TD/TT: 01/04/25 0749 Sql Manager: [address] [place], [place] [address] Mammography Report Signed Patient: Marcial Dave MR#: [id number] 11 : 1980 Acct:[id number] Age/Sex: 44 / F ADM Date: 01/04/25 Loc: HO.MAMMO Attending Dr: Francesco Lucero MD Ordering Physician: Francesco Lucero MD Results: 2Be nign Findings Date of Service: 10/18 Follow Up: 1 Year From Orig inal Mammogram Procedure(s): MM tomosynthesis screening BI Accession Number(s): [id number] cc: Francesco Lucero MD EXAMINATION: MM SCREENING [...] 01/11/25 1639 DD/ 0745 TD/TT: 01/04/25 0749 Sql Manager: Pathology Reviewed date:07/06/2025 02:08:06 PM Interpretation: Performing Lab:[facility], [address] [place] [address] Notes/Report: ------ Name: Marietta Dave Age/Sex: 45/F : 1980 Unit#: [id number] Attend Dr: Chepe Stock MD Re07/04/25 Status : DEP REF Location: [facility] Disch: ------ SPEC : [id number] RECD : 07/05/25808 STATUS: RICKY MARTIN NUM: [id number] LINA: 07/04/25-1430 [facility] DR: Chepe Stock MD ENTERED: 07/05/25-08 SP [...] developed and their performance characteristics determined by [facility]. They have not been cleared or appr anya by the U.S. Food and Drug Administration (FDA). However, the FDA has determined that such clearance or approval is not necessary. This laboratory is certified under the Clinical Laboratory Improvement Amendments of 1988 (CLIA) as qualified to perform high comp lexity clinical laboratory testing. Copies To: Francesco Lucero MD [facility] [address] [place] [id number] CONTINUED ON NEXT PAGE ------ Name: Marietta Dave Age/Sex: 45/F : 1980 Unit#: [id number] Attend Dr: Chepe Stock MD Re07/04/25 Status : DEP REF Location: [facility] Disch: ------ SPEC : [id number] RECD : 07/05/25-7078 STATUS: RICKY MARTIN NUM: [id number] LINA: 07/04/25-838[facility] DR: Chepe Stock MD ENTERED: 07/05/25- SP TYPE: Surgical OTHR DR: Francesco Lucero MD ORDERED: Gross Micro L3 Copies To: (Continued) Chepe Stock MD [facility] [place] [place] [facility] [address] [place] [address] ------ Signed (signature on file) Aleah Biju 07/06/25 1120 ------ END OF REPORT Thyroid Stimulating Hormone (Not yet reviewed by provider) Interpretation: Performing Lab:[facility], [address] [place] [phone] Notes/Report: Thyroid Stimulating Hormone 2.04 0.32-4.0 uIU/mL TSH 3rd Generation ([facility]) Reason For Referral Reason SCREEN FOR COLON [...] Duration) Notes Start Date End Date Status Levothyroxine Sodium 112 MCG TAKE 1 TABLET BY MOUTH EVERY DAY IN THE MORNING ON AN EMPTY STOMACH for 90 Active Albuterol Sulfate HFA 108 (90 Base) MCG/ACT INHALE 1 PUFF BY MOUTH EVERY 4 HOURS NEEDED for 30 Active Ibuprofen 800 MG 1 tablet with [...] Problem Status W/U Status Risk Notes Problem 41358017 Anxiety (F41.9) Active confirmed Problem 639109082 Acquired hypothyroidism (E03.9) Active confirmed Problem 039455716 Mild intermitten t asthma without complication (J45.20) Active confirmed Problem Alcohol abuse (40740992) Alcohol abuse (F10.10) Active confirmed Problem 4955512 Migraine with au ra and without status migrainosus, not intractable (G43.109) Active confirmed Problem Dysthymia (04345191) Dysthymia (F34.1) Active confirmed Problem 089310215 Vaginal bleeding (N93.9) Active confirmed Problem Obsessive-com pulsive disorder (813865894) Obsessive thinking (F42.8) Active confirmed Vital Signs [...] Location Date Provider Diagnosis Francesco Lucero MD [address] [place] [address] [place] [id number] 10/29/2024 Francesco Lucero Blood tests for routine general physical examination Z00.00 and Acquired hypothyroidism E03.9 Francesco Lucero MD [address] [place] [id number] 01/25/2025 Francesco Lucero Alcohol abuse F10.10 ; Annual physical exam Z00.00 ; Dysthymia F34.1 ; Skin nodule R22.9 ; Acquired hypothyroidism E03.9 ; Mild intermittent asthma without complication J45.20 and Depression screening Z13.31 Francesco Lucero MD [address] [place] [id number] 03/10/2025 Francesco Lucero Mild intermittent asthma without complication J45.20 ; Dysthymia F34.1 and Skin nodule R22.9 Francesco Lucero MD [address] [place] [id number] 12/31/2024 Francesco Lucero MD [address] [place] [id number] 10/25/2024 Francesco Lucero MD [address] [place] [address] [id number] 11/04/2024 Francesco Lucero MD [address] [place] [id number] 03/01/2025 Francesco Lucero MD [address] [place] [id number] 05/17/2025 Francesco Lucero MD [address] [place] [id number] 05/17/2025 Francesco Lucero Assessments Encounter Date Diagnosis [...] Skin nodule (ICD-10 - R22.9) referral to [facility] [place] [place] surgery 01/25/2025 Skin nodule (ICD-10 - R22.9) [...] CHEST 2 VIEW PA & LAT 02/26/2024 Thyroid Stimulating Hormone 08/10/2025 TSH (THYROID STIMULATING HORMONE) 2018 Future Test Test Name Order Date MRI BRAIN NO CONTRAST 09/17/2023 Next Appt Details Provider Name:Francesco gilmorer, 01/23/2026 07:15:00 AM, [address] [place] [address], [address], [place], [place], [phone], Provider Name:Francesco gilmorer, 01/30/2026 08:30:00 AM, [address] [facility], [address], [place], [place], [phone], Insurance Providers Payer Name Payer Address Payer Phone Subscriber Number Group Number Insured Name Patient Relationship to Insured Coverage Start Date Coverage End Date [address] [facility] [phone] [id number] Marietta Dave Self - patient is the insured Medical (General) History Medical History History ICD 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 Soler
--- OUTSIDE RECORDS SUMMARY | 2025-08-10 17:35 | XMS_ITS | Patient Health Record ---
Author Organization [facility] Address [address] [place] [address] Care Team Providers Care Waffle Machine Operator Name Role Phone Francesco Lucreo MD Primary Care Provider Farhan Jha [phone] Reason For Referral No Information Encounters Encounter Location Date Provider Diagnosis [facility] [address] [facility] [address] [place] [address] 06/01/2025 Farhan Mazariegos Plan Of Treatment Next Appt Details Provider Name:Farhan Mazariegos , 10/13/2025 09:20:00 AM, [address], [address], [place], [address], Insurance Providers Payer Name Payer Address Payer Phone Subscriber Number Group Number Insured Name Patient Relationship to Insured Coverage Start Date Coverage End Date [facility] [address] [place] [phone] [id number] LAMBERTO DAVE Self - patient is the insured
== END 2025-08-10 15:11 | disposition home or self-care (01) ==
LOC: HO.HWS 13:55
PROVIDERS: PCP Internal Medicine; Visit Provider Advanced Practice Midwife
DX: Z01.419 Encounter for gynecological examination (general) (routine) without abnormal findings (principal); N93.9 Abnormal uterine and vaginal bleeding, unspecified
CPT/HCPCS: 99212; 99396; 99459

== ENCOUNTER 2025-08-10 13:55 | Outpatient (REF) | payer OTHER, SELFPAY ==
[2025-08-11 09:11] LABS: Bacterial Vaginosis PCR NEGATIVE (Negative); Candida Group PCR NOT DETECTED (Not Detect); Candida glab krusei PCR NOT DETECTED (Not Detect); Trichomonas vaginalis PCR NOT DETECTED (Not Detect)
[2025-08-11 09:42] LABS: CT PCR NOT DETECTED (Not Detect.); NG PCR NOT DETECTED (Not Detect.)
== END 2025-08-10 13:56 | disposition home or self-care (01) ==
LOC: HO.LNP 13:55
PROVIDERS: PCP Internal Medicine; Visit Provider Advanced Practice Midwife
DX: Z01.411 Encounter for gynecological examination (general) (routine) with abnormal findings (principal); N93.9 Abnormal uterine and vaginal bleeding, unspecified; R87.610 Atypical squamous cells of undetermined significance on cytologic smear of cervix (ASC-US); N92.1 Excessive and frequent menstruation with irregular cycle; R53.83 Other fatigue; Z20.2 Contact with and (suspected) exposure to infections with a predominantly sexual mode of transmission; Z98.51 Tubal ligation status
CPT/HCPCS: 81515; 87491; 87591; 87626; 88175

== ENCOUNTER 2025-08-10 14:45 | Outpatient (REF) | payer OTHER, SELFPAY ==
[2025-08-10 16:32] LABS: Thyroid Stimulating Hormone 2.04 uIU/mL (0.32-4.0)
== END 2025-08-10 14:46 | disposition home or self-care (01) ==
LOC: HO.LAB 14:45
PROVIDERS: PCP Internal Medicine; Visit Provider Advanced Practice Midwife
DX: N92.1 Excessive and frequent menstruation with irregular cycle (principal); R53.83 Other fatigue
CPT/HCPCS: 36415; 82306; 84443

== ENCOUNTER 2025-09-28 14:13 | Outpatient (REF) | payer OTHER, SELFPAY ==
--- OUTSIDE RECORDS SUMMARY | 2024-11-04 02:09 | XMS_ITS ---
Author Organization Francesco Lucero MD Address [address] [facility] [address] [place] [phone] Care Team Providers Care Frame Nailer Name Role Phone Francesco Lucero Primary Care Provider REASON FOR VISIT Appointment today Encounters Encounter Location Date Provider Diagnosis Francesco Lucero MD [address] [place] [address] [address] [place] [address] [id number] 11/04/2024 Francesco Lucero Plan Of Treatment Next Appt Details Provider Name:Francesco salas, 09/29/2025 07:45:00 AM, [address] [place] [address], [address], [phone], Provider Name:Francesco salas, 01/23/2026 07:15:00 AM, [address] [place] [address], [address], [phone], Provider Name:Francesco salas, 01/30/2026 08:30:00 AM, [address] [place] [address], [phone], Progress Notes * Marietta CORTEZ KDOB: [birth year] (44 yo F)Acc No.[id number]:11/04/2024 Patient: Marietta Richards :1980 A ge:44 Y S ex:Female Address:[address] [place] [phone] * true * Date: Generated for Brian flood/Jack/Ignacio on: 1 11/28/2024 05:25 PM EST
--- OUTSIDE RECORDS SUMMARY | 2024-12-31 06:43 | XMS_ITS ---
Author Organization Francesco Lucero MD Address [address] [facility] [address] [place] [phone] Care Team Providers Care Necktie Operator Pockets And Pieces Name Role Phone Francesco Lucero Primary Care Provider REASON FOR VISIT ER Encounters Encounter Location Date Provider Diagnosis Francesco Lucero MD [address] [place] [address] [place] [phone] 12/31/2024 Francesco Lucero Plan Of Treatment Next Appt Details Provider Name:Francesco salas, 09/29/2025 07:45:00 AM, [address] [place] [address], [address], [phone], Provider Name:Francesco salas, 01/23/2026 07:15:00 AM, [address] [place] [address], [address], [phone], Provider Name:Francesco salas, 01/30/2026 08:30:00 AM, [address] [place] [address], [phone], Progress Notes * Marietta CORTEZ KDOB: 9 (44 yo F)Acc No.[id number]:12/31/2024 Patient: Raghu RUELAS Marietta Bernabe :1980 A ge:44 Y S ex:Female Address:[address] [place] [phone] * true * Date: Generated for Brian flood/Jack/Kareyitting on: 1 11/28/2024 05:25 PM EST
--- OUTSIDE RECORDS SUMMARY | 2025-01-25 03:30 | XMS_ITS ---
Author Organization Francesco Lucero MD Address [address] [place], [place] [id number] Care Team Providers Care Spinning Bath Patroller Name Role Phone Francesco Lucero Primary Care Provider Allergies Allergen (clinical drug ingredient) Drug/Non Drug Allergy documented on EMR Reaction Allergy Type Onset Date Status amoxicillin amox (uncoded) rash Allergy Act arvin penicillin (uncoded) rash Allergy Active Reason For Referral Reason SCREEN FOR COLON CAN CER Diagnosis 1 Screen for colon can cer (Z12.11) Referral Organization Francesco Lucero MD Referring Provider First Name Francesco Referring Provider Last Name Nic Referring Provider Speciality Internal M edicine Referred Provider Farhan Mazariegos Referred Provider Specialty Gastroentero logy General Notes Brianna Elizalde 01/25/2025 09:21:01 AM >[facility]ERRAL [facility]ED TO [facility] P[facility] A 02/18/2025 10:35:14 AM >APPT SCHEDULED 06/02/25 A T9:20AMTonio Patti A 06/30/2025 10:20:23 AM >SHE WAS A NO SHOW, R/S FOR OCT 13 Referral Priority Routine Referral Appointment Date 10/13/2025 REASON FOR VISIT annual visit Medications Medication SIG (Take, Route, Frequency, Duration) Notes Start Date End Date Status Propranolol HCl ER 80 MG TAKE 1 CAPSULE BY MOUTH EVERY DAY FOR 30 DAYS for 90 Not-Taking Levothyroxine Sodium 112 MCG take 1 tablet by mouth every day in the morning on an empty stomach Orally Once a day Active Escitalopram Oxalate 20 MG TAKE 1 TABLET BY MOUTH EVERY DAY FOR 30 DAYS Active Ibuprofen 800 MG 1 tablet with food o r milk as needed Orally Three times a day for 10 days 12/04/2020 Not-Taking Ventolin HFA * 108 (90 Base) MCG/ACT 2 puffs as needed Inhalation every 4 hrs for 30 days 05/23/2014 Not-Taking Zomig 2.5 MG 1 tablet Orally Once a day 01/23/2023 Active Albuterol Sulfate HFA 108 (90 Base) MCG/ACT INHALE 1 PUFF BY MOUTH EVERY 4 HOURS NEEDED FOR 30 DAYS for 20 Active buPROPion HCl ER (XL) 150 MG 1 tablet in the morning Orally Once a day for 30 days 01/25/2025 Active Breo Ellipta 200-25 MCG/ACT 1 puff Inhalation Once a day 02/26/2024 Active Social History Tobacco Use: Social History Observation Description Date Details (start date - stop date) Never Smoker NA - NA Tobacco Use/Smoking Question Answer Notes Patient is a nonsmoker Additional Findings: Tobacco Non-User Cu rrent non-smoker, currently using no form of tobacco Alcohol Screen Question Answer Notes Did you have a drink containing alcohol in the p ast year? No Points 0 Interpretation Negative Problems Problem Type SNOMED Code ICD Code Onset Dates Problem Status W/U Status Risk Notes Problem Dysthymia (71423685) Dysthymia (F34.1) Active confirmed Vital Signs Blood pressure systolic 122 mm Hg 01/26/20 25 Blood pressure diastolic 90 mm Hg 025 Height 62 in 01/25/2025 Weight 178 lbs 01/25/2025 BMI 32.55 kg/m2 01/25/2025 weight is up 11 pounds since 05-20-24 Encounters Encounter Location Date Provider Diagnosis Francesco Lucero MD [address] [place] [address] Drive [address] [place], [place] [phone] 01/25/2025 Francesco Lucero Alcohol abuse F10.10 ; Annual physical exam Z00.00 ; Dysthymia F34.1 ; Skin nodule R22.9 ; Acquired hypothyroidism E03.9 ; Mild intermittent asthma without complication J45.20 and Depression screening Z13.31 Assessments Encounter Date Diagnosis (ICD Code) Assessment Notes Treatment Notes Treatment Clinical Notes Section Notes 01/25/2025 Alcohol abuse (ICD-10 - F10.10) has restarted for a while. should get back to counselling 01/25/2025 Annual physical exam (ICD-10 - Z00.00) make appt for colonoscopy, labs rviewed and discussed with patient 01/25/2025 Dysthymia (ICD-10 - F34.1) is getting worse, patient verbalized understanding of medicatioj and directions for use 01/25/2025 Skin nodule (ICD-10 - R22.9) is soft and feels benign but will recheck it at next visit. she thinks has only been there for 2 weeks 01/25/2025 Acquired hypothyroidism (ICD-10 - E03.9) stable, will contnue current regiment 01/25/2025 Mild intermittent asthma without complication (ICD-10 - J45.20) stable, will continue current regiment 01/25/2025 Depression screening (ICD-10 - Z13.31) negative screen 01/25/2025 Other REFERRAL FAXED TO [facility] FOR NEW PATIENT APPT Plan Of Treatment Medication Medication Name Sig Start Date Stop Date Notes Levothyroxine Sodium 112 MCG take 1 tabl et by mouth every day in the morning on an empty stomach Orally Once a day Escitalopram Oxalate 20 MG TAKE 1 TABLET BY MOUTH EVERY DAY FOR 30 DAYS buPROPion HCl ER (XL) 150 MG 1 tablet in the morning Orally Once a day for 30 days 01/25/2025 Breo Ellipta 200-25 MCG/ACT 1 puff Inhalation Once a day 0 02/26/2024 Treatment Notes Assessment Notes Alcohol abuse has restarted for a while. should get back to counselling Annual physical exam make appt for colon oscopy, labs rviewed and discussed with patient Dysthymia is getting worse, german dangelo verbalized understanding of medicatioj and directions for use Skin nodule is soft and feels be nign but will recheck it at next visit. she thinks has only been there for 2 weeks Acquired hypothyroidism stable, will con tnue current regiment Mild intermittent asthma wit hout complication stable, will continue current regiment Depression screening negative screen Other REFERRAL FAXED TO [facility] FOR NEW PATIENT APPT Referrals Referral Date Details 01/25/2025 01/25/2025, SCREEN F OR COLON CANCER, Farhan Mazariegos Next Appt Details Follow Up: 6 Weeks, Reason: Provider Name:Francesco salas, 09/29/2025 07:45:00 AM, [address], [address], [place], [place], [phone], Provider Name:Francesco Pressley maritza, 01/23/2026 07:15:00 AM, [address] [facility], [address], [place], [place], [phone], Provider Name:Francesco Pressley maritza, 01/30/2026 08:30:00 AM, [address] [facility], [address], [place], [place], [phone], Progress Notes * Marietta CORTEZ KDOB: [birth year] (44 yo F)Acc No.[id number]:01/25/2025 Progress Notes Patient: Marietta VICK Provider: Maliha Lucero MD :1980 A ge:44 Y S ex:Female Date:01/25/2025 Address:[address] [place] [id number] Subjective: * Chief Complaints: * A nnual visit * HPI: D epression Screening: PHQ-9 L ittle interest or pleasure in doing things S everal days, F eeling down, depressed, or hopeless S everal days, T rouble falling or staying asleep, or sleeping too much S everal days, F eeling tired or having little energy S everal days, P oor appetite or overeating S everal days, F eeling bad about yourself or that you are a failure, or have let yourself or your family down N ot at all, T rouble concentrating on things, such as reading the newspaper or watching television N ot at all, M oving or speaking so slowly that other people could have noticed; or the opposite, being so fidgety or restless that you have been moving around a lot more than usual N ot at all, T houghts that you would be better off or of hurting yourself in some way N ot at all, T otal Score 5 , I nterpretation M ild Depression. I nterpretation and Intervention D epression Screening Findings N egative, F ollow-Up for Depression : review of PHQ-9 found negative result, no follow-up needed. C ommunication Needs: Communication Needs D oes the patient have a hearing impairment N o, D oes the patient have a vision impairment? Y es, I f yes, what is the vision impairment? G lasses, D oes the patient have a cognition impairment? N o. S HOLGER Questions: SDOH Questions I n the past year have you been worried about losing housing? N o, I n the past year have you or any family members you live with been unable to get any of the following when it was really needed? Check all that apply: N one. S ymptom(s): patient is a 44 yo female here for annual visit with review of recent labs and follow up of chronic issues. * ROS: G eneral/Constitutional: Change in appetite d enies. C hills d enies. F ever d enies. O phthalmologic: Blurred vision d enies. D ischarge d enies. P ain d enies. E NT: Decreased hearing d enies. S ore throat d enies.?Swollen glands d enies. E ndocrine: Cold intolerance d enies. E xcessive thirst d enies. H eat intolerance d enies. W eight loss d enies. R espiratory: Cough d enies. S hortness of breath at rest d enies. S hortness of breath with exertion d enies. W heezing d enies. C ardiovascular: Chest pain at rest d enies. C hest pain with exertion?denies. I rregular heartbeat d enies. S hortness of breath d enies. ? G astrointestinal: Abdominal pain d enies. C hange in bowel habits d enies. D iarrhea d enies. N ausea d enies. R ectal bleeding d enies. V omiting d enies . G enitourinary: Blood in urine d enies. D ifficulty urinating d enies. F requent urination d enies. U rinary incontinence D enies. M usculoskeletal: Painful joints d enies. W eakness d enies. ? S kin: Dry skin d enies. I tching d enies. D enies?Mole(s), changes in moles, new moles or any lesions of concern. D enies P hotosensitivity. R lou d enies. N eurologic: Dizziness d enies. F ainting d enies. H eadache?denies. * Medical History: * Surgical History: * Hospitalization/Major Diagno stic Procedure: * Family History: F ather: alive 71 yrs, Healthy. M other: alive 71 yrs, Healthy. 1 brother(s) , 1 sister(s) . 2 son(s) , 1 daughter(s) . . fATHER- healthy mother- healthy, /substance abuse family history substance abuse uncle , brother mother's father, Denies mental health/substance abuse family history, Denies mental health/substance abuse family history. * Social History: T obacco Use: T obacco Use/Smoking P atient is a n onsmoker, A dditional Findings: Tobacco Non-User C urrent non-smoker, currently using no form of tobacco. D rugs/Alcohol: A lcohol Screen D id you have a drink containing alcohol in the past year? N o, P oints 0 , I nterpretation N egative. M iscellaneous: C affeine: yes, frequency:, 1-2 cups per day. Children: yes. Exercise: no. Home smoke detector use: yes. Housing: owning. Living with: family. Marital status: . Pets: cats: dogs: 2 dogs. Travel outside of the [place]: no. * Medications: T akingBreo Ellipta 200-25 MCG/ACT Aerosol Powder Breath Activated 1 puff Inhalation Once a day Zomig 2.5 MG Tablet 1 tablet Orally Once a day Levothyroxine Sodium 112 MCG Tablet take 1 tablet by mouth every day in the morning on an empty stomach Orally Once a day Albuterol Sulfate HFA 108 (90 Base) MCG/ACT Aerosol Solution INHALE 1 PUFF BY MOUTH EVERY 4 HOURS NEEDED FOR 30 DAYS Escitalopram Oxalate 20 MG Tablet TAKE 1 TABLET BY MOUTH EVERY DAY FOR 30 DAYS Taking Breo Ellipta 200-25 MCG/ACT Aerosol Powder Breath Activated 1 puff Inhalation Once a day Taking Zomig 2.5 MG Tablet 1 tablet Orally Once a day Taking Levothyroxine Sodium 112 MCG Tablet take 1 tablet by mouth every day in the morning on an empty stomach Orally Once a day Taking Albuterol Sulfate HFA 108 (90 Base) MCG/ACT Aerosol Solution INHALE 1 PUFF BY MOUTH EVERY 4 HOURS NEEDED FOR 30 DAYS Taking Escitalopram Oxalate 20 MG Tablet TAKE 1 TABLET BY MOUTH EVERY DAY FOR 30 DAYS Not-Taking/PRNPropranolol HCl ER 80 MG Capsule Extended Release 24 Hour TAKE 1 CAPSULE BY MOUTH EVERY DAY FOR 30 DAYS Ibuprofen 800 MG Tablet 1 tablet with food or milk as needed Orally Three times a day Ventolin HFA * 108 (90 Base) MCG/ACT Aerosol Solution 2 puffs as needed Inhalation every 4 hrs Medication List reviewed and reconciled with the patientNot-Taking/PRN Propranolol HCl ER 80 MG Capsule Extended Release 24 Hour TAKE 1 CAPSULE BY MOUTH EVERY DAY FOR 30 DAYS Not-Taking/PRN Ibuprofen 800 MG Tablet 1 tablet with food or milk as needed Orally Three times a day Not-Taking/PRN Ventolin HFA * 108 (90 Base) MCG/ACT Aerosol Solution 2 puffs as needed Inhalation every 4 hrs Medication List reviewed and reconciled with the patient * Allergies: p enicillin: rashamox: rashyes[Allergies Verified] Objective: * Vitals: H t: 62, Wt: 178, BMI:32.55, BP:122/90, Wt-k.74. weight is up 11 pounds since 05-20-24. * P ast Orders: L ab:Comprehensive [place]. Panel Fast (Order Date - 10/29/2024) (Collection Date & Time - 10/29/2024 07:00 AM) Value Reference Range Sodium 143 135-145 - mmol/L Bilirubin Total 0.3 0.0-1.0 - mg/dL Aspartate Amino Transferase 22 5-31 - U/L Alanine Aminotransferase 23 0-31 - U/L Total Protein 7.3 6.5-8.0 - g/dL Albumin Level 4.4 3.5-5.0 - g/dL Alkaline Phosphatase 56 39-117 - U/L Potassium 4.5 3.3-5.1 - mmol/L Chloride 111 H 96-108 - mmol/L Carbon Dioxide 24 22-29 - mmol/L Anion Gap 13 12-20 - Blood Urea Nitrogen 12 9-16 - mg/dL Creatinine 0.82 0.5-1.4 - mg/dL Estimated Glomerular Filt Rate > 60 - Glucose Fasting 87 60-99 - mg/dL Calcium 9.4 8.4-10.2 - mg/dL L ab:Lipid Panel (Order Date - 10/29/2024) (Collection Date & Time - 10/29/2024 07:00 AM) Value Reference Range Triglycerides 108 <150 - mg/dL Cholesterol 215 H <200 - mg/dL LDL Cholesterol Calculated 144 H <100 - mg/dL HDL Cholesterol 50 >40 - mg/dL L ab:TSH reflex Free T4 (Order Date - 10/29/2024) (Collection Date & Time - 10/29/2024 07:00 AM) Value Reference Range TSH reflex Free T4 0.32 0.32-4.0 - uIU/mL L ab:UA CC w/rflx Micro + Cult (Order Date - 10/29/2024) (Collection Date & Time - 10/29/2024 07:00 AM) Value Reference Range Color Urine Yellow - Appearance Urine Clear - PH 5.5 5.0-9.0 - Glucose Urine UA Negative Negative - mg/dL Urine Blood Negative Negative - Specific [place] - Urine 1.015 1.005-1.025 - Urine Protein Negative Neg-Trace - mg/dL Urine Ketones Negative Negative - mg/dL Nitrite Urine Negative Negative - Leukocyte Esterase Urine Negative Negative - L ab:Complete Blood Count Auto Diff (Order Date - 10/29/2024) (Collection Date & Time - 10/29/2024 07:00 AM) Value Reference Range White Blood Count 8.0 4.8-10.8 - X10*3/uL Red Blood Count 4.58 4.20-5.50 - X10*6/uL Hemoglobin 15.1 12.0-16.0 - g/dl Hematocrit 44.0 37.0-47.0 - % Mean Corpuscular Volume 96.1 80.0-98.0 - fL Mean Corpuscular Hemoglobin 33.0 27.0-33.0 - pg Mean Corpuscular HGB Conc 34.3 31.0-35.0 - g/ dl Red Cell Distribution Width 11.9 11.0-16.0 - % Platelet Count 253 160-400 - X10*3/uL Mean Platelet Volume 9.8 9.4-12.3 - fL Neutrophils Percent Auto 55.0 45-73 - % Imm Gran Pct Auto 0.2 0.0-0.4 - % Lymphocytes Percent Auto 23.8 20-40 - % Monocytes Percent Auto 10.9 2-11 - % Eosinophils Percent Auto 9.2 H 0-4 - % Basophils Percent Auto 0.9 0-2 - % NRBC Pct Auto 0.0 0.0-0.2 - /100WBC Neutrophils Absolute Auto 4.4 2.0-8.3 - x10* 3/uL Imm Gran Abs Auto 0.02 0.00-0.03 - X10*3/uL Lymphocytes Absolute Auto 1.9 1.2-4.9 - X10* 3/uL Monocytes Absolute Auto 0.9 0.1-1.2 - X10*3/ uL Eosinophils Absolute Auto 0.7 H 0.0-0.4 - X10* 3/uL Basophils Absolute Auto 0.1 0.0-0.2 - X10*3/ uL NRBC Abs Auto 0.000 0.0-0.012 - X10*3/uL * Examination: G eneral Examination: GENERAL APPEARANCE: w ell developed, well nourished, in no acute distress. HEAD: n ormocephalic, atraumatic. EYES: p upils equal, round, reactive to light and accommodation, sclera non-icteric. EARS: n ormal. ORAL CAVITY: m ucosa moist. THROAT: c lear. NECK/THYROID: n joseph supple, full range of motion, no cervical lymphadenopathy, no bruits. SKIN: w arm and dry, no suspicious lesions, abnormal rt axilla with a one inch soft freely movable sub cutaneous lesion.. HEART: r egular rate and rhythm, S1, S2 normal, no murmurs.? LUNGS: c lear to auscultation bilaterally. BREASTS: N o mass, no lump. ABDOMEN: s oft, nontender, nondistended, bowel sounds present, normal, no organomegaly , no masses palpable. RECTAL EXAM: d one by film processing utility worker. FEMALE GENITOURINARY: d one by film processing utility worker. EXTREMITIES: n o clubbing, cyanosis, or edema. NEUROLOGIC: n onfocal, motor strength normal upper and lower extremities, sensory exam intact. Assessment: * Assessment: 1. A nnual physical exam - Z00.00 (Primary) 2 . A lcohol abuse - F10.10? 3. D ysthymia - F34.1 4 . S kin nodule - R22.9 ?5. A cquired hypothyroidism - E03.9 6 . M ild intermittent asthma without complication - J45.20 7 . D epression screening - Z13.31 Plan: * Treatment: 2. A lcohol abuse Notes: has restarted for a while. should get back to counselling 3. D ysthymia Start buPROPion HCl ER (XL) Tablet Extended Release 24 Hour, 150 MG, 1 tablet in the morning, Orally, Once a day, 30 days, 30, Refills 3; C ontinue Escitalopram Oxalate Tablet, 20 MG, TAKE 1 TABLET BY MOUTH EVERY DAY FOR 30 DAYS. Notes: is getting worse, patient verbalized understanding of medicatioj and directions for use 4. S kin nodule Notes: is soft and feels benign but will recheck it at next visit. she thinks has only been there for 2 weeks 5. A cquired hypothyroidism Continue Levothyroxine Sodium Tablet, 112 MCG, take 1 tablet by mouth every day in the morning on an empty stomach, Orally, Once a day. Notes: stable, will contnue current regiment 6. M ild intermittent asthma without complication Continue Breo Ellipta Aerosol Powder Breath Activated, 200-25 MCG/ACT, 1 puff, Inhalation, Once a day. Notes: stable, will continue current regiment 7. D epression screening Notes: negative screen 8. O thers Notes: REFERRAL [facility]ED TO [facility] FOR [facility]IENT [facility]PT ? Referral To:[facility] Reason:SCREEN FOR COLON CANCER * Procedure Codes: * Follow Up: 6 Weeks * * Sign off status: Completed true * Provider: Maliha Lucero MD Date: 0 01/25/2025 Generated for Brian flood/Jack/Kareyitting on: 1 11/28/2024 05:24 PM EST History and Physical Notes * HPI (History of Present Illness) Category Sub-Category Detail Notes Category Not es Symptom(s) patient is a 44 yo female here for annual visit with review of recent labs and follow up of chronic issues. Depression Screening PHQ-9 Little inte rest or pleasure in doing things: Several days Feeling down, depressed, or hopeless: Se veral days Trouble falling or staying asleep, or sl eeping too much: Several days Feeling tired or having little energy: S everal days Poor appetite or overeating: Several day s Feeling bad about yourself o r that you are a failure, or have let yourself or your family down: Not at all Trouble concentrating on thi ngs, such as reading the newspaper or watching television: Not at all Moving or speaking so slowly that other people could have noticed; or the opposite, being so fidgety or restless that you have been moving around a lot more than usual: Not at all Thoughts that you would be b dane off or of hurting yourself in some way: Not at all Total Score: 5 Interpretation: Mild Depression Interpretation and Intervention Depression Chuyita shannon Findings: Negative Follow-Up for Depression: : review of PH Q-9 found negative result, no follow-up needed SDOH Questions SDOH Questions In the past year have you been worried about losing housing?: No In the past year have you or any family members you live with been unable to get any of the following when it was really needed? Check all that apply:: None Communication Needs Communication Needs Does the patient have a hearing impairment: No Does the patient have a vision impairmen t?: Yes If yes, what is the vision impairment?: Glasses Does the patient have a cognition impair ment?: No Examination Category Sub-Category Detail Notes Category Not es General Examination GENERAL APPEARANCE: well dev eloped, well nourished, in no acute distress HEAD: normocephalic, atrau matic EYES: pupils equal, round, reactive to light and accommodation, sclera non-icteric EARS: normal THROAT: clear NECK/THYROID: neck supple, full ra nge of motion, no cervical lymphadenopathy, no bruits HEART: regular rate and rhy thm, S1, S2 normal, no murmurs LUNGS: clear to auscultatio n bilaterally ABDOMEN: soft, nontender, non distended, bowel sounds present, normal, no organomegaly , no masses palpable NEUROLOGIC: nonfocal, motor stre ngth normal upper and lower extremities, sensory exam intact SKIN: warm and dry, no zhang picious lesions, abnormal rt axilla with a one inch soft freely movable sub cutaneous lesion. EXTREMITIES: no clubbing, cyanosi s, or edema BREASTS: No mass, no lump RECTAL EXAM: done by film processing utility worker FEMALE GENITOURINARY: done by film processing utility worker ORAL CAVITY: mucosa moist Consultation Request Notes Referral Date Referring Provider Referred Provider Not es 01/25/2025 Francesco Lucero Robert SCREEN FOR COLON CANCER
--- OUTSIDE RECORDS SUMMARY | 2025-03-01 09:09 | XMS_ITS ---
Author Organization Francesco Lucero MD Address [address] [facility] [address] [place] [phone] Care Team Providers Care Manufacturing Planner Name Role Phone Francesco Lucero Primary Care Provider [phone] REASON FOR VISIT New Refill Request Medications Medication SIG (Take, Route, Frequency, Duration) Notes Start Date End Date Status Albuterol Sulfate HFA 108 (90 Base) MCG/ACT INHALE 1 PUFF BY MOUTH EVERY 4 HOURS NEEDED FOR 30 DAYS for 20 Active Encounters Encounter Location Date Provider Diagnosis Francesco Lucero MD [address] [place] [address] [address] [place] [phone] 03/01/2025 Francesco Lucero Plan Of Treatment Medication Medication Name Sig Start Date Stop Date Notes Albuterol Sulfate HFA 108 (9 0 Base) MCG/ACT INHALE 1 PUFF BY MOUTH EVERY 4 HOURS NEEDED FOR 30 DAYS for 20 Next Appt Details Provider Name:Francesco salas, 09/29/2025 07:45:00 AM, [address] [place] [address], [address], [phone], Provider Name:Francesco salas, 01/23/2026 07:15:00 AM, [address] [place] [address], [phone], Provider Name:Francesco salas, 01/30/2026 08:30:00 AM, [address] [place] [address], [phone], Progress Notes * Marietta CORTEZ KDOB: 9 (44 yo F)Acc No.[id number]:03/01/2025 Patient: Marietta VICK :1980 A ge:44 Y S ex:Female Address:[address] [place] [phone] * Refills Refill Albuterol Sulfate HFA Aerosol Solution, 108 (90 Base) MCG/ACT, 8.5 Each, INHALE 1 PUFF BY MOUTH EVERY 4 HOURS NEEDED FOR 30 DAYS, 20, Refills=3 * true * Date: Generated for Brian flood/Jack/Kareyitting on: 11/28/2024 05:24 PM EST
--- OUTSIDE RECORDS SUMMARY | 2025-03-10 02:45 | XMS_ITS ---
Author Organization Francesco Lucero MD Address [address] [place], [place] [phone] Care Team Providers Care Sports Trainer Name Role Phone Francesco Lucero Primary Care [...] kg/m2 03/10/2025 weight is down 5 [facility] 01-25-[facility] Encounters Encounter Location Date Provider Diagnosis Francesco Lucero MD [address] [place] [address] [place] [phone] 03/10/2025 Francesco Lucero Mild intermittent asthma without [...] Skin nodule (ICD-10 - R22.9) referral to [facility] surgery Plan Of Treatment Medication Medication Name [...] ntnue current regiment Skin nodule referral to [facility] surg stephen Referrals Referral Date Details 03/10/2025 03/10/2025, Skin Nod ule right arm pit painful, Edward Pedro Next Appt Details Follow Up: 2 Months, Reason: Provider Name:Francesco Pressley ier, 09/29/2025 07:45:00 AM, [address] [facility], [address], [place], [place], [phone], Provider Name:Francesco Fernando Pressley ier, 01/23/2026 07:15:00 AM, [address], [address], [place], [place], [phone], Provider Name:Francesco King Huan ier, 01/30/2026 08:30:00 AM, [address] [facility], [address], [place], [place], [phone], Progress Notes * BRENDAMarietta ZALDIVAR KDOB: 9 (44 yo F)Acc No.[id number]:03/10/2025 Progress Notes Patient: Marietta VICK Provider: Maliha Lucero MD :1980 A ge:44 Y S ex:Female Date:03/10/2025 Address:[address] [place] [address] RICK [place], [id number] Subjective: * Chief Complaints: * 6 WK [...] 3. S kin nodule Notes: referral to [facility] surgery Referral To:Edward Vasquez Surgery Reason:Skin Nodule right arm pit painful 4. O thers Refill Ventolin HFA * Aerosol Solution, 108 (90 Base) MCG/ACT, 2 puffs as needed, Inhalation, every 4 hrs, 30 days, 13, Refills 3. * Procedure Codes: * Follow Up: 2 Months * * Sign off status: Completed true * Provider: Maliha Lucero MD Date: 0 03/10/2025 Generated for Brian flood/Jack/eTfaridehsmitting on: 1 11/28/2024 05:25 PM EST History and Physical Notes * [...]
--- OUTSIDE RECORDS SUMMARY | 2025-05-17 04:54 | XMS_ITS ---
Author Organization Francesco Lucero MD Address 10 [facility] [address] [place] [phone] Care Team Providers Care Tar Chaser Name Role Phone Francesco Lucero Primary Care Provider REASON FOR VISIT Appointment Cancelation Encounters Encounter Location Date Provider Diagnosis Francesco Lucero MD [address] [place] [address] [place] [phone] 05/17/2025 Francesco Lucero Plan Of Treatment Next Appt Details Provider Name:Francesco Pressley ier, 09/29/2025 07:45:00 AM, [address] [place] [address], [address], [phone], Provider Name:Francesco Pressley ier, 01/23/2026 07:15:00 AM, [address] [place] [address], [address], [phone], Provider Name:Francesco Pressley ier, 01/30/2026 08:30:00 AM, [address] [place] [address], [address], [phone], Progress Notes * Marietta CORTEZ KDOB: 9 (45 yo F)Acc No.[id number]:05/17/2025 Patient: Marietta VICK :1980 A ge:45 Y S ex:Female Address:[address] [place] [phone] * true * Date: Generated for Brian flood/Jack/Ignacio on: 11/28/2024 05:25 PM EST
--- OUTSIDE RECORDS SUMMARY | 2025-05-17 09:45 | XMS_ITS ---
Author Organization Francesco Lucero MD Address 10 [facility] [address] [place] [address] [phone] Care Team Providers Care Papeterie Table Assembler Name Role Phone Francesco Lucero Primary Care Provider REASON FOR VISIT RE:Appointment Cancelation Encounters Encounter Location Date Provider Diagnosis Francesco Lucero MD [address] [place] [address] [address] [place] [address] [phone] 05/17/2025 Francesco Lucero Plan Of Treatment Next Appt Details Provider Name:Francesco Pressley ier, 09/29/2025 07:45:00 AM, [address] [place] [address], [address], [phone], Provider Name:Francesco Pressley ier, 01/23/2026 07:15:00 AM, [address] [place] [address], [phone], Provider Name:Francesco Pressley ier, 01/30/2026 08:30:00 AM, [address] [place] [address], [phone], Progress Notes * Marietta CORTEZ KDOB: 9 (45 yo F)Acc No.[id number]:05/17/2025 Patient: Raghu RUELAS Marietta K :1980 A ge:45 Y S ex:Female Address:[address] [place] [phone] * true * Date: Generated for Brian flood/Jack/Ignacio on: 11/28/2024 05:24 PM EST
--- OUTSIDE RECORDS SUMMARY | 2025-05-19 12:00 | XMS_ITS ---
Author Organization Francesco Lucero MD Address [address] [place] [address] [phone] Care Team Providers Care Hemstitcher Name Role Phone Francesco Lucero Primary Care Provider [phone] Allergies Allergen (clinical drug ingredient) Drug/Non Drug Allergy documented on EMR Reaction Allergy Type Onset Date Status amoxicillin amox (uncoded) rash Allergy Act arvin penicillin (uncoded) rash Allergy Active REASON FOR VISIT 2 month Encounters Encounter Location Date Provider Diagnosis Francesco Lucero MD [address] [place] [address] [place] [address] [phone] 05/19/2025 Francesco Lucero Plan Of Treatment Next Appt Details Provider Name:Francesco salas, 09/29/2025 07:45:00 AM, [address] [place] [address], [phone], Provider Name:Francesco salas, 01/23/2026 07:15:00 AM, [address] [place] [address], [phone], Provider Name:Francesco salas, 01/30/2026 08:30:00 AM, [address] [place] [address], [phone], Progress Notes * Marietta CORTEZ KDOB: 9 (45 yo F)Acc No.[id number]:05/19/2025 Progress Notes Patient: Marietta VICK Provider: Maliha Lucero MD :1980 A ge:45 Y S ex:Female Date:05/19/2025 Address:[address] [place], [place] [address]RICK AS-[id number] Subjective: * Chief Complaints: * 1 . 2 month. * ROS: G eneral/Constitutional: Denies C hills. D enies F atigue. D enies F ever. E NT: Denies S ore throat. R espiratory: Denies S hortness of breath at rest. D enies S hortness of breath with exertion. G astrointestinal: Denies D iarrhea. D enies N ausea. 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 * Allergies: P enicillin: Rash, Amox: Rash. Objective: * Vitals: Assessment: Plan: * Treatment: * * The named appointment provid er may or may not be the originator of this progress note, and it is not deemed complete until electronically signed by the appointment provider. Sign off status: Pending * Provider: Maliha Lucero MD Date: 0 05/19/2025 Generated for Brian flood/Jack/Kareyitting on: 11/28/2024 05:25 PM EST
--- OUTSIDE RECORDS SUMMARY | 2025-06-02 04:20 | XMS_ITS ---
Author Organization [facility] Address [address] [place] [phone] Care Team Providers Care Advertising Sales Representative Name Role Phone Nic NELSON, Francesco Primary Care Provider Farhan Jha [phone] REASON FOR VISIT Patient presents today for a colon screening Encounters Encounter Location Date Provider Diagnosis [facility] [address] [place] [phone] 06/02/2025 Farhan Mazariegos Plan Of Treatment Next Appt Details Provider Name:Farhan Mendoza Mazariegos , 10/13/2025 09:20:00 AM, [address], [address], [place], [phone], Progress Notes * LAMBERTO DAVEDOB:1980 (45 yo F)Acc No.[id number]:06/02/2025 Progress Notes Patient: LAMBERTO VICK Provider: Radha Mazariegos MD :1980 A ge:45 Y S ex:Female Date:06/02/2025 Address:[address] [place], [place] [phone] Pcp:Francesco Lucero MD Subjective: * Chief Complaints: * 1 . Patient presents today for a colon screening. * Medical History: Objective: * Vitals: Assessment: Plan: * Treatment: * * The named appointment provid er may or may not be the originator of this progress note, and it is not deemed complete until electronically signed by the appointment provider. Sign off status: Pending * Provider: Radha Mazariegos MD Date: 0 06/02/2025 Generated for Brian flood/Jack/eTfaridehsmitting on: 11/28/2024 05:25 PM EST
--- OUTSIDE RECORDS SUMMARY | 2025-09-15 02:45 | XMS_ITS ---
Author Organization Francesco Lucero MD Address [address] [place], [place] [phone] Care Team Providers Care Cyber Systems Administrator Name Role Phone Francesco Lucero Primary [...] Location Date Provider Diagnosis Francesco Lucero MD [address] [place] [phone] 09/15/2025 Francesco Lucero Mild intermittent asthma without [...] Up: 1 Week, Reason: Provider Name:Francesco salas, 09/29/2025 07:45:00 AM, [address] [place] [address], [phone], Provider Name:Francesco salas, 01/23/2026 07:15:00 AM, [address] [place] [address], [phone], Provider Name:Francesco salas, 01/30/2026 08:30:00 AM, [address] [place] [address], [phone], Progress Notes * Marietta CORTEZ KDOB: 9 (45 yo F)Acc No.[id number]:09/15/2025 Progress Notes Patient: Marietta VICK Provider: Maliha Lucero MD :1980 A ge:45 Y S ex:Female Date:09/15/2025 Address:[address] [place], [place] [address]RICK [id number] Subjective: * Chief Complaints: * D iscuss asthma medication * HPI: S ymptom(s): patient is a 45 yo female here to discuss asthma medications/ having increasing difficulty with breathing. had been on breo in past./ has problesm with asthma in fall ever since covsd. * ROS: G eneral/Constitutional: Denies C hills. D enies F atigue. D enies F ever. D enies H eadache. E NT: Denies S ore throat. R espiratory: Admits C ough. A dmits S hortness of breath at rest. A dmits S hortness of breath with exertion. D enies S putum production. A dmits W heezing. G astrointestinal: Denies D iarrhea. D enies [...] Maliha Lucero MD Date: Generated for Brian flood/Jack/Ignacio on: 11/28/2024 05:26 PM EST History and Physical Notes * Examination Category Sub-Category Detail Notes Category Not es General Examination GENERAL APPEARANCE: alert, w ell hydrated, in no distress HEART: regular rate and rhy thm, no murmurs, rubs, gallops LUNGS: abnormal diffuse whe ezes SKIN: good turgor
--- OUTSIDE RECORDS SUMMARY | 2025-09-15 04:28 | XMS_ITS ---
Author Organization Francesco Lucero MD Address [address] [facility] [address] [place] [phone] Care Team Providers Care Gauge Operator Name Role Phone Francesco Lucero Primary Care Provider REASON FOR VISIT med issue Encounters Encounter Location Date Provider Diagnosis Francesco Lucero MD [address] [place] [address] [address] [place] [phone] 09/15/2025 Francesco Lucero Plan Of Treatment Next Appt Details Provider Name:Francesco Pressley ier, 09/29/2025 07:45:00 AM, [address] [place] [address], [address], [phone], Provider Name:Francesco salas, 01/23/2026 07:15:00 AM, [address] [place] [address], [address], [phone], Provider Name:Francesco salas, 01/30/2026 08:30:00 AM, [address] [place] [address], [address], [phone], Progress Notes * Marietta CORTEZ KDOB: 9 (45 yo F)Acc No.[id number]:09/15/2025 Patient: Marietta VICK :1980 A ge:45 Y S ex:Female Address:[address] [place] [phone] * true * Date: Generated for Brian flood/Jack/Ignacio on: 11/28/2024 05:26 PM EST
--- NOTE | ~2025-09-28 | US_ITS ---
EXAMINATION: US PELVIS CLINICAL INFORMATION: Abnormal uterine bleeding. 45-year-old female. LMP = 3 weeks ago. History of LEEP procedure. COMPARISON: 10/13/2020. TECHNIQUE: Ultrasound of the pelvis is performed using both transabdominal and transvaginal transducers along with Doppler. Transvaginal imaging is performed due to inadequate visualization transabdominally. FINDINGS: UTERUS: The uterus is anteverted, isoflexed, and measures 9.5 x 3.6 x 4.8 cm. The cervix has a normal appearance. The double wall endometrial thickness is 7 mm. It is uniform without irregularity. The uterus is smooth in contour and has somewhat heterogeneous myometrial echogenicity. No visible fibroid. ADNEXA: The right ovary is visualized. There is normal color flow to the right adnexa. There is no right ovarian torsion. There is no pelvic ascites or fluid collection. There are no adnexal masses. Right ovary measures 2.6 x 1.9 x 2.1 cm. Volume = 5.4 mL. Normal sonographic appearance. Left ovary is not well seen on today's examination. US/US pelvic and transvaginal IMPRESSION: 1. Mildly heterogeneous myometrium without definitive focal fibroid visualized. 2. Endometrial thickness is 7 mm and appears homogeneous. 3. The right ovary could not be definitively visualized on today's examination. The left ovary is normal. Electronically signed by: Rory Hanna MD 09/28/2025 03:00 PM [facility]
--- OUTSIDE RECORDS SUMMARY | 2025-09-28 17:24 | XMS_ITS | Patient Health Record ---
Author Organization Francesco Lucero MD Address [address] [place], [place] [id number] Care Team Providers Care Traffic Routing Engineer Name Role Phone Francesco Lucero Primary Care Provider [phone] Allergies Allergen (clinical drug ingredient) Drug/Non Drug Allergy documented on EMR Reaction Allergy Type Onset Date Status amoxicillin amox (uncoded) rash Allergy Act arvin penicillin (uncoded) rash Allergy Active Results Component Value Reference Range Notes Complete Blood Count Auto Di ff Reviewed date:10/29/2024 12:27:58 PM Interpretation: Performing Lab:[facility], [address] [place] [phone] Notes/Report: White Blood Count 8.0 4.8-10.8 X10*3/uL [...] NRBC Abs Auto 0.000 0.0-0.012 X10*3/uL Comprehensive Moffit. Panel Fa st Reviewed date:10/29/2024 12:29:22 PM Interpretation: Performing Lab:[address] [phone] Notes/Report: Sodium 143 135-145 mmol/L Potassium 4.5 [...] Panel Reviewed date:10/29/2024 12:26:40 PM Interpretation: Performing Lab:[facility], [address] [place] [phone] Notes/Report: Triglycerides 108 <150 mg/dL Desirable Triglyceride: [...] T4 Reviewed date:10/29/2024 12:28:07 PM Interpretation: Performing Lab:[facility], [address] [place] [phone] Notes/Report: TSH reflex Free T4 0.32 0.32-4.0 uIU/mL Brenda Matta Reviewed date:10/29/2024 12:29:02 PM Interpretation: Performing Lab:[facility], [address] [place] [phone] Notes/Report: Brenda Matta See Note Specimen held untested for 24 hours; Call to request Chemistry testing. UA CC w/rflx Micro + Cult Reviewed date:10/29/2024 12:31:30 PM Interpretation: Performing Lab:[facility], [address] [place] [phone] Notes/Report: Urine, Clean Catch Color Urine Yellow Appearance Urine Clear PH 5.5 5.0-9.0 Glucose Urine UA Negative Negative mg/dL Urine Blood Negative Negative Specific [place] - Urine 1.015 1.005-1.025 Urine Protein Negative Neg-Trace mg/dL Urine Ketones Negative Negative mg/dL Nitrite Urine Negative Negative Leukocyte Esterase Urine Negative Negative XR chest 2V Reviewed date:12/31/2024 10:42:23 AM Interpretation: Performing Lab: Notes/Report: [address] [address] XRay Report Signed Patient: Marietta Dave MR#: [id number] 11 : 1980 Acct:[id number] Age/Sex: 44 / F ADM Date: 12/30/24 Loc: .ED Attending Dr: Ordering Physician: Nate Cuevas MD Date of Service: 12/30/24 Procedure(s): XR chest 2V Accession Number(s): [id number] cc: Francesco Lucero MD; Nate Cuevas MD [...] in OV> 12/30/242207 DD/ 06 TD/TT: 12/30/242206 [employer] Inspector: [place] [address] XRay Report Signed Patient: Marcial Dave MR#: [id number] 11 : 1980 Acct:[id number] Age/Sex: 44 / F ADM Date: 12/30/24 Loc: .ED Attending Dr: Ordering Physician: Nate Cuevas MD Date of Service: 12/30/24 Procedure(s): XR chest 2V Accession Number(s): [id number] cc: Francesco Lucero MD; Nate Cuevas MD [...] in OV> 12/30/242207 DD/ 06 TD/TT: 12/30/242206 [employer] Inspector: MM tomosynthesis screening B I Reviewed date:01/11/2025 04:55:27 PM Interpretation: Performing Lab: Notes/Report: [address] [place], [place] [address] Mammography Report Signed Patient: Marietta Dave MR#: [id number] 11 : 1980 Acct:[id number] Age/Sex: 44 / F ADM Date: 01/04/25 Loc: HO.MAMMO Attending Dr: Francesco Lucero MD Ordering Physician: Francesco Lucero MD Results: 2Be nign Findings Date of Service: 01/04/25 Follow Up: 1 Year From Orig ina Mammogram Procedure(s): MM tomosynthesis screening BI Accession Number(s): [id number] cc: Francesco Lucero MD EXAMINATION: MM SCREENING [...] 01/11/25 1639 DD/ 0745 TD/TT: 01/04/25 0749 [employer] Strip Inspector: [address] [place], [place] [address] Mammography Report Signed Patient: Marcial Dave MR#: [id number] 11 : 1980 Acct:[id number] Age/Sex: 44 / F ADM Date: 01/04/25 Loc: HO.MAMMO Attending Dr: Francesco Lucero MD Ordering Physician: Francesco Lucero MD Results: 2Be nign Findings Date of Service: 10/18 Follow Up: 1 Year From Orig inal Mammogram Procedure(s): MM tomosynthesis screening BI Accession Number(s): [id number] cc: Francesco Lucero MD EXAMINATION: MM SCREENING [...] 01/11/25 1639 DD/ 0745 TD/TT: 01/04/25 0749 [employer] Inspector: Pathology Reviewed date:07/06/2025 02:08:06 PM Interpretation: Performing Lab:[facility], [address] [place] [address] Notes/Report: ------ Name: Marietta Dave Age/Sex: 45/F : 1980 Unit#: [id number] Attend Dr: Chepe Stock MD Re07/04/25 Status : DEP REF Location: [facility] Disch: ------ SPEC : [id number] RECD : 07/05/25757 STATUS: RICKY MARTIN NUM: [id number] LINA: 07/04/25-1430 [facility] [address]: Chepe Stock MD ENTERED: 07/05/25-08 SP [...] developed and their performance characteristics determined by [facility]. They have not been cleared or appr anya by the U.S. Food and Drug Administration (FDA). However, the FDA has determined that such clearance or approval is not necessary. This laboratory is certified under the Clinical Laboratory Improvement Amendments of 1988 (CLIA) as qualified to perform high comp lexity clinical laboratory testing. Copies To: Francesco Lucero MD [facility] [address] [place] [address] CONTINUED ON NEXT PAGE ------ Name: Marietta Dave Age/Sex: 45/F : 1980 Unit#: [id number] Attend Dr: Chepe Stock MD Re07/04/25 Status : DEP REF Location: [facility] Disch: ------ SPEC : [id number] RECD : 07/05/25-6793 STATUS: RICKY MARTIN NUM: [id number] LINA: 07/04/25-618[facility] DR: Chepe Stock MD ENTERED: 07/05/25- SP TYPE: Surgical OTHR DR: Francesco Lucero MD ORDERED: Gross Micro L3 Copies To: (Continued) Chepe Stock MD [facility] [address] [place] [address] ------ Signed (signature on file) Aleah Ivy 07/06/25 1120 ------ END OF REPORT Vitamin D 25-OH (D2 and D3) Reviewed date:08/18/2025 04:26:45 PM Interpretation: Performing Lab:[facility], [address] [place] [phone] Notes/Report: Vitamin D 25-OH, D2 <4 This test was developed and its analytical performance characteristics have been determined by [facility] [place], [place]. It has not been cleared or approved by the U.S. Food and Drug Administration. This assay has been validated pursuant to the CLIA regulations and is used for clinical purposes. THIS TEST WAS PERFORMED AT: [employer] [place] [address] [place], [place] BONI ALMONTE MD,PHD Vitamin D 25-OH, D3 23 This test was developed and its analytical performance characteristics have been determined by [facility] [place]. It has not been cleared or approved by the U.S. Food and Drug Administration. This assay has been validated pursuant to the CLIA regulations and is used for clinical purposes. Vitamin D 25-OH, Total 23 30-100 ng/mL Vitamin D, 25-Hydroxy reports concentrations of two common forms, 25-OHD2 and 25-OHD3. 25-OHD3 indicates both endogenous production and supplementation. 25-OHD2 is an indicator of exogenous sources such as diet or supplementation. Therapy is based on measurement of Total 25-OHD, with levels <20 ng/mL indicative of Vitamin D deficiency, while levels between 20 ng/mL and 30 ng/mL suggest insufficiency. Optimal levels are > or = 30 ng/mL. For additional information, please refer to http://education.[employer]pet[employer].com/fa q/QLC638 (This link is being provided for informational/ educational purposes only.) Thyroid Stimulating Hormone Reviewed date:08/10/2025 05:54:54 PM Interpretation: Performing Lab:[facility], [address] [place] [phone] Notes/Report: Thyroid Stimulating Hormone 2.04 0.32-4.0 uIU/mL TSH 3rd Generation ([facility]) CT NG by PCR Reviewed date:08/11/2025 12:23:34 PM Interpretation: Performing Lab:[facility], [address] [place] [phone] Notes/Report: CT PCR NOT DETECTED Not Detect. A [...] or psychological consequences. Bacterial Vaginosis Panel Reviewed date:08/11/2025 12:23:44 PM Interpretation: Performing Lab:[facility], [address] [place] [phone] Notes/Report: Trichomonas vaginalis PCR NOT DETECTED Not [...] glab krusei PCR NOT DETECTED Not Detect Pap Smear Reviewed date:08/16/2025 06:20:27 PM Interpretation: Performing Lab:[facility], [address] [place] [phone] Notes/Report: ------ Name: Marietta Dave Age/Sex: 45/F : 1980 Unit#: [id number] Attend Dr: Lexie Hampton CNM Re08/10/25 Status : DEP REF Location: [facility] Disch: ------ SPEC : [id number] REC STATUS: RICKY MARTIN NUM: [id number] LINA: 08/10/[address] [facility] [address]: Lexie Hampton CN ENTERED: 08/11/25 31 SP TYPE: Pap Smr OTHR DR: Francesco Lucero MD ORDERED: Pap Smear Interpretation Satisfactory for evaluation. Negative for intraepithelial lesion or malignancy. HPV High Risk: Negative HPV Genotyping 16: Negative HPV Genotyping 18: Negative Clinical Information LMP: 07/29/2025 Previous PAP test:06/03/2024, ASCUS, history of LEEP Other history: Encou nter for well woman exam with routine gynecological exam, ASCUS of cervix with negative high risk HPV Material Received ThinPrep-Cervical PAP Disclaimer As of September 15, the technical services to include automated prescreening performed by the ThinPrep Imag ing System, PAP screening and HPV testing will be performed at [facility] (CLIA #[id number]), [address] [place] [address]. Testing for H PV was performed using the [employer] TELLO 6800 system. The presence of HPV in the female ge nital tract is associated with a number of diseases, including cervical carcinoma. The HPV D NA high risk pool tests for HPV 31, 33, 35, 39, 45, 51, 52, 56, 58, 59, 66 and 68. The testi ng for HPV 16 and 18 genotypes has also been performed. A positive result indicates det ection of nucleic acid sequences from one or more subtypes, whereas a negative result dao cates such sequences were not detected. All professional ser vices are performed by [facility] ([address] [place] [address], [place] [address]; P h: [phone]; CLIA #[id number]). The PAP Test is a screening procedure with the inherent possibility of both false negative and false positive results. Results should be interpreted in the context of historic and current clinical fin dings. Reliability of the PAP Test is enhanced by performing the test on a regular repetit arvin basis. CONTINUED ON NEXT PAGE ------ Name: Marietta Dave Age/Sex: 45/F : 1980 Unit#: [id number] Attend Dr: Lexie Hampton CNM Re08/10/25 Status : [facility] Location: [facility] Disch: ------ SPEC : [id number] REC STATUS: RICKY MARTIN NUM: [id number] LINA: 08/10/25-[address] [facility] [address]: Lexie Hampton CNM ENTERED: 08/11/25-07 24 SP TYPE: Pap Smr OTHR DR: Francesco Lucero MD ORDERED: Pap Smear Copies To: Francesco Lucero MD [facility] [address] [facility] [address] [place] [address] Lexie Hampton CNM [facility] [address] [facility] [address] [place] [address] ------ Signed (signature on file) Carmen Bagley CT (ASC) 08/16/25 1350 ------ END OF REPORT HPV High risk Reviewed date:08/15/2025 05:05:04 PM Interpretation: Performing Lab:[facility], [address] [place] [phone] Notes/Report: HPV High Risk Negative Negative HPV Genotype 16 Negative Negative HPV Genotype 18 Negative Negative HPV testing performed at [facility] (CLIA #[id number]) , [address] [place] [address]. Testing for HPV was performed using the [employer] TELLO 6800 system. The presence of HPV in the female genital tract is associated with a number of diseases, including cervical carcinoma. The HPV DNA high risk pool tests for HPV 31, 33, 35, 39, 45, 51, 52, 56, 58, 59, 66 and 68. The testing for HPV 16 and 18 genotypes has also been performed. A positive result indicates detection of nucleic acid sequences from one or more subtypes, whereas a negative result indicates such sequences were not detected. US pelvic and transvaginal ( Not yet reviewed by provider) Interpretation: Performing Lab: Notes/Report: [address] [address] Ultrasound Report Signed Patient: Marietta Dave MR#: [id number] 11 : 1980 Acct:[id number] Age/Sex: 45 / F ADM Date: 09/28/25 Loc: . Attending Dr: Lexie Hampton CNM Ordering Physician: Lexie Hampton CNM Date of Service: 09/28/25 Procedure(s): US pelvic and transvaginal Accession Number(s): [id number] cc: Francesco Lucero MD; Lexie Hampton CNM Reason for Exam: N93.9 - Abnormal uterine and vaginal bleeding, unspecified EXAMINATION: US PELVIS CLINICAL INFORMATION: Abnormal uterine bleeding. 45-year-old female. LMP = 3 weeks ago. History of LEEP procedure. COMPARISON: 10/13/2020. TECHNIQUE: Ultrasound of the pelvis is performed using both transabdominal and transvaginal transducers along with Doppler. Transvaginal imaging is performed due to inadequate visualization transabdominally. FINDINGS: UTERUS: The uterus is anteverted, isoflexed, and measures 9.5 x 3.6 x 4.8 cm. The cervix has a normal appearance. The double wall endometrial thickness is 7 mm. It is uniform without irregularity. The uterus is smooth in contour and has somewhat heterogeneous myometrial echogenicity. No visible fibroid. ADNEXA: The right ovary is visualized. There is normal color flow to the right adnexa. There is no right ovarian torsion. There is no pelvic ascites or fluid collection. There are no adnexal masses. Right ovary measures 2.6 x 1.9 x 2.1 cm. Volume = 5.4 mL. Normal sonographic appearance. Left ovary is not well seen on today's examination. US/US pelvic and transvaginal IMPRESSION: 1. Mildly heterogeneous myometrium without definitive focal fibroid visualized. 2. Endometrial thickness is 7 mm and appears homogeneous. 3. The right ovary could not be definitively visualized on today's examination. The left ovary is normal. Electronically signed by: Rory Hanna MD 09/28/2025 03:[address] [facility] Dictated By: Rory Hanna MD Signed By: <Electronically signed by Rroy Hanna MD in OV> 09/28/25 1500 DD/ 1426 TD/TT: 09/28/25 1435 [employer] Inspector: [address] [address] Ultrasound Report Signed Patient: Marcial Dave MR#: [id number] 11 : 1980 Acct:[id number] Age/Sex: 45 / F ADM Date: 09/28/25 Loc: .US Attending Dr: Lexie Hampton CNM Ordering Physician: Lexie Hampton CNM Date of Service: 09/28/25 Procedure(s): US pel lizz and transvaginal Accession Number(s): [id number] cc: Francesco Lucero MD; Lexie Hampton CNM Reason for Exam: N93 .9 - Abnormal uterine and vaginal bleeding, unspecified EXAMINATION: US PELVIS CLINICAL INFORMATION: Abnormal uterine ble eding. 45-year-old female. LMP = 3 weeks ago. History of LEEP procedure. COMPARISON: 10/13/2020. TECHNIQUE: Ultrasound of the pe lvis is performed using both transabdominal and transvaginal transdu cers along with Doppler. Transvaginal imaging is performed due to inadequate visualization transabdominally. FINDINGS: UTERUS: The uterus is anteve rted, isoflexed, and measures 9.5 x 3.6 x 4.8 cm. The cervix has a nor mal appearance. The double wall endometrial thickness is 7 mm. It is uniform without irregularity. The uterus is smooth in contour and has somewhat heterogeneous myometrial echogenic ity. No visible fibroid. ADNEXA: The right ovary is visualized. There is normal color flow to the right adnexa. There is no right ovarian torsion. There is no pelvic ascites or fluid collection. There are no adnexal masses. Right ovary measures 2.6 x 1.9 x 2.1 cm. Volume = 5.4 mL. Normal sonographic appearance. Left ovary is not we ll seen on today's examination. U S/US pelvic and transvaginal IMPRESSION: 1. Mildly heterogene ous myometrium without definitive focal fibroid visualized. 2. Endometrial thick ness is 7 mm and appears homogeneous. 3. The right ovary c ould not be definitively visualized on today's examination. The lef t ovary is normal. Electronically dianna d by: Rory Hanna MD 09/28/2025 03:00 PM EST RP Dictated By: Rory Reza MD Signed By: <Sarah chao signed by Rory Hanna MD in OV> 09/28/25 1500 DD/ 1426 TD/TT: 09/28/25 1435 [employer] Inspector: Reason For Referral Reason SCREEN FOR COLON CAN CER Diagnosis 1 Screen for colon can cer (Z12.11) Referral Organization Francesco Lucero MD Referring Provider First Name Francesco Referring Provider Last Name Nic Referring Provider Speciality Internal edicine Referred Provider Farhan Mazariegos Referred Provider [...] Last Name Nic Referring Provider Speciality Internal edicine Referred Provider Edward Vasquez Referred Provider [...] MOUTH EVERY DAY FOR 30 DAYS Active Immunizations Vaccine Route Administration Date Status [...] Problem Status W/U Status Risk Notes Problem 68644255 Anxiety (F41.9) Active confirmed Problem 470344219 Acquired hypothyroidism (E03.9) Active confirmed Problem 606968547 Mild intermitten t asthma without complication (J45.20) Active confirmed Problem Alcohol abuse (77081307) Alcohol abuse (F10.10) Active confirmed Problem 7271398 Migraine with au ra and without status migrainosus, not intractable (G43.109) Active confirmed Problem Dysthymia (00785567) Dysthymia (F34.1) Active confirmed Problem 373486633 Vaginal bleeding (N93.9) Active confirmed Problem Obsessive-com pulsive disorder (341617320) Obsessive thinking (F42.8) Active confirmed Vital Signs Blood pressure diastolic 80 mm Hg 09/15/2025 laurie ght is up 4 pounds since 03-10-25 Height 62 in 09/15/2025 weight is up 4 pounds since 03-10-25 Blood pressure systolic 124 mm Hg 09/15/2025 weig ht is up 4 pounds since 03-10-25 Weight 177 lbs 09/15/2025 weight is up 4 pounds since 03-10-25 BMI 32.37 kg/m2 09/15/2025 weight is up 4 pounds since 03-10-25 Encounters Encounter Location Date Provider Diagnosis Francesco Lucero MD [address] [place] [id number] 10/29/2024 Francesco Lucero Blood tests for routine general physical examination Z00.00 and Acquired hypothyroidism E03.9 Francesco Lucero MD [address] [place] [id number] 01/25/2025 Francesco Lucero Alcohol abuse F10.10 ; Annual physical exam Z00.00 ; Dysthymia F34.1 ; Skin nodule R22.9 ; Acquired hypothyroidism E03.9 ; Mild intermittent asthma without complication J45.20 and Depression screening Z13.31 Francesco Lucero MD [address] [place] [id number] 03/10/2025 Francesco Lucero Mild intermittent asthma without complication J45.20 ; Dysthymia F34.1 and Skin nodule R22.9 Francesco Lucero MD [address] [place] [address] [id number] 09/15/2025 Francesco Lucero Mild intermittent asthma without complication J45.20 Francesco Lucero MD [address] [id number] 12/31/2024 Francesco Lucero MD [address] [place] [id number] 09/15/2025 Francesco Lucero MD [address] [place] [id number] 10/25/2024 Francesco Lucero MD [address] [place] [id number] 11/04/2024 Francesco Lucero MD [address] [place] [id number] 03/01/2025 Francesco Lucero MD [address] [place] [id number] 05/17/2025 Francesco Lucero MD [address] [place] [id number] 05/17/2025 Francesco Lucero Assessments Encounter Date Diagnosis [...] F34.1) doing great, will contnue current regiment 09/15/2025 Mild intermittent asthma without complication (ICD-10 - J45.20) patient verbalized understanding of medication and directions for use 01/25/2025 Dysthymia (ICD-10 - F34.1) is getting worse, patient verbalized understanding of medicatioj and directions for use 03/10/2025 Skin nodule (ICD-10 - R22.9) referral to [facility] surgery 01/25/2025 Skin nodule (ICD-10 - R22.9) [...] negative screen 01/25/2025 Other REFERRAL FAXED TO [facility] FOR NEW PATIENT APPT Plan Of Treatment Pending Test Test Name Order Date Electrocardiogram (EKG) 09/16/2011 MRI BRAIN NO CONTRAST 03/03/2023 XR CHEST 2 VIEW PA & LAT 02/26/2024 US pelvic and transvaginal 09/28/2025 TSH (THYROID STIMULATING HORMONE) 2018 Future Test Test Name Order Date MRI BRAIN NO CONTRAST 09/17/2023 Next Appt Details Provider Name:Francesco salas, 09/29/2025 07:45:00 AM, [address] [place] [address], [address], [phone], Provider Name:Francesco salas, 01/23/2026 07:15:00 AM, [address] [place] [address], Suite [facility], [place], [phone], Provider Name:Francesco salas, 01/30/2026 08:30:00 AM, [address] [place] [address], Suite [facility], [place], [place], [phone], Insurance Providers Payer Name Payer Address Payer Phone Subscriber Number Group Number Insured Name Patient Relationship to Insured Coverage Start Date Coverage End Date [facility] [address] [facility] [address] [facility] [phone] [id number] Marietta Dave Self - patient is the insured Medical (General) History Medical History History ICD Code appt in January [employer]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 Soler
--- OUTSIDE RECORDS SUMMARY | 2025-09-28 17:25 | XMS_ITS | Patient Health Record ---
Author Organization [facility] Address [address] [place] [address] Care Team Providers Care Grader Tender Name Role Phone Francesco Lucero MD Primary Care Provider Farhan Jha [phone] Reason For Referral No Information Encounters Encounter Location Date Provider Diagnosis [facility] [address] [facility] [address] [place] [address] 06/01/2025 Farhan Mazariegos Plan Of Treatment Next Appt Details Provider Name:Farhan Mazariegos , 10/13/2025 09:20:00 AM, [address], [address], [place], [address], Insurance Providers Payer Name Payer Address Payer Phone Subscriber Number Group Number Insured Name Patient Relationship to Insured Coverage Start Date Coverage End Date [facility] [address] [place] [phone] [id number] LAMBERTO DAVE Self - patient is the insured
== END 2025-09-28 14:14 | disposition home or self-care (01) ==
LOC: HO.US 14:13
PROVIDERS: PCP Internal Medicine; Visit Provider Advanced Practice Midwife
DX: N93.9 Abnormal uterine and vaginal bleeding, unspecified (principal)
CPT/HCPCS: 76830; 76856

== ENCOUNTER → 2025-09-28 14:14 | Outpatient (BNV) | payer OTHER, SELFPAY | PROVIDERS: PCP Internal Medicine; Visit Provider Radiology Diagnostic Radiology | DX: N85.00 Endometrial hyperplasia, unspecified (principal); N93.9 Abnormal uterine and vaginal bleeding, unspecified | CPT/HCPCS: 76830; 76856 ==

== ENCOUNTER 2025-10-05 13:59 | Outpatient (REF) | payer OTHER, SELFPAY | END 2025-10-05 14:00 | disposition home or self-care (01) | LOC: HO.LNP 13:59 | PROVIDERS: PCP Internal Medicine; Visit Provider Advanced Practice Midwife | DX: N93.9 Abnormal uterine and vaginal bleeding, unspecified (principal); Z32.02 Encounter for pregnancy test, result negative | CPT/HCPCS: 58100; 81025; 88305 ==

== ENCOUNTER 2025-10-05 13:59 | Outpatient (AMB) | payer OTHER, SELFPAY ==
--- OUTSIDE RECORDS SUMMARY | 2024-12-31 06:43 | XMS_ITS ---
Author Organization Francesco Lucero MD Address [address] [place] [phone] Care Team Providers Care Director Meetings Name Role Phone Francesco Lucero Primary Care Provider REASON FOR VISIT ER Encounters Encounter Location Date Provider Diagnosis Francesco Lucero MD [address] [facility] [address] [place] [phone] 12/31/2024 Francesco Lucero Plan Of Treatment Next Appt Details Provider Name:Francesco salas, 01/23/2026 07:15:00 AM, [address] [place] [address], [address] [place] [address], [phone], Provider Name:Francesco salas, 01/30/2026 08:30:00 AM, [address] [place] [address], [address], [phone], Progress Notes * Marietta CORTEZ KDOB: 9 (44 yo F)Acc No.[id number]:12/31/2024 Patient: Raghu RUELAS Amdouglas Bernabe :1980 A ge:44 Y S ex:Female Address:[address] [place] [phone] * true * Date: Generated for Printi ng/Fascottg/eTransmitting on: 12/05/2024 05:15 PM EST
--- OUTSIDE RECORDS SUMMARY | 2025-01-25 03:30 | XMS_ITS ---
Author Organization Francesco Lucero MD Address [address] [place], [place] [phone] Care Team Providers Care Manager Quality Name Role Phone Francesco Lucero Primary Care [...] Status W/U Status Risk Notes Problem Dysthymia (52198890) Dysthymia (F34.1) Active confirmed Vital Signs Blood pressure systolic 122 mm Hg 01/26/20 25 Blood pressure diastolic 90 mm Hg 025 Height 62 in 01/25/2025 Weight 178 lbs 01/25/2025 BMI 32.55 kg/m2 01/25/2025 weight is up 11 pounds since 05-20-24 Encounters Encounter Location Date Provider Diagnosis Francesco Lucero MD [address] [place] [address] Drive [address] [place], [place] [phone] 01/25/2025 Francesco Lucero Alcohol abuse F10.10 ; [...] Up: 6 Weeks, Reason: Provider Name:Francesco salas, 01/23/2026 07:15:00 AM, [address], [address], [place], [phone], Provider Name:Francesco Fernando Pressley ier, 01/30/2026 08:30:00 AM, [address] [facility] [address] [facility] [address], [address], [place], [phone], Progress Notes * Marietta CORTEZ KDOB: [birth year] (44 yo F)Acc No.[id number]:01/25/2025 Progress Notes Patient: Marietta VICK Provider: Maliha Lucero MD :1980 A ge:44 Y S ex:Female Date:01/25/2025 Address:[address] [place] [address] RICK CAMPOS [phone] Subjective: * Chief Complaints: * A nnual [...] dogs: 2 dogs. Travel outside of the [place]: no. * Medications: T akingBreo Ellipta [...] 05-20-24. * P ast Orders: L ab:Comprehensive [place]. Panel Fast (Order Date - 10/29/2024) (Collection [...] mg/dL Urine Blood Negative Negative - Specific [place] - Urine 1.015 1.005-1.025 - Urine Protein [...] masses palpable. RECTAL EXAM: d one by grief counsellor. FEMALE GENITOURINARY: d one by grief counsellor. EXTREMITIES: n o clubbing, cyanosis, or edema. [...] 8. O thers Notes: REFERRAL [facility]XED TO [facility] FOR NEW PATIENT APPT ? Referral To:[facility] Reason:SCREEN FOR COLON CANCER * Procedure Codes: * Follow Up: 6 Weeks * * Sign off status: Completed true * Provider: Maliha Lucero MD Date: 0 01/25/2025 Generated for Brian flood/Jack/Rosannasmitting on: 12/05/2024 05:14 PM EST History and Physical Notes * [...] Interpretation: Mild Depression Interpretation and Intervention Depression Jordye shiva Findings: Negative Follow-Up for Depression: : review [...] mass, no lump RECTAL EXAM: done by grief counsellor FEMALE GENITOURINARY: done by grief counsellor ORAL CAVITY: mucosa moist Consultation Request Notes Referral Date Referring Provider Referred Provider Not es 01/25/2025 Francesco Lucero Robert SCREEN FOR COLON CANCER
--- OUTSIDE RECORDS SUMMARY | 2025-03-01 09:09 | XMS_ITS ---
Author Organization Francesco Lucero MD Address [address] [place] [address] [place] [phone] Care Team Providers Care Tour Guide Name Role Phone Francesco Lucero Primary Care Provider REASON FOR VISIT New Refill Request Medications Medication SIG (Take, Route, Frequency, Duration) Notes Start Date End Date Status Albuterol Sulfate HFA 108 (90 Base) MCG/ACT INHALE 1 PUFF BY MOUTH EVERY 4 HOURS NEEDED FOR 30 DAYS for 20 Active Encounters Encounter Location Date Provider Diagnosis Francesco Lucero MD [address] [place] [address] [place] [phone] 03/01/2025 Francesco Lucero Plan Of Treatment Medication Medication Name Sig Start Date Stop Date Notes Albuterol Sulfate HFA 108 (9 0 Base) MCG/ACT INHALE 1 PUFF BY MOUTH EVERY 4 HOURS NEEDED FOR 30 DAYS for 20 Next Appt Details Provider Name:Francesco salas, 01/23/2026 07:15:00 AM, [address] [place] [address], [address], [phone], Provider Name:Francesco salas, 01/30/2026 08:30:00 AM, [address] [place] [address], [address], [phone], Progress Notes * Marietta CORTEZ KDOB: 9 (44 yo F)Acc No.[id number]:03/01/2025 Patient: Raghu Marietta RUELAS :1980 A ge:44 Y S ex:Female Address:[address] [place] [phone] * Refills Refill Albuterol Sulfate HFA Aerosol Solution, 108 (90 Base) MCG/ACT, 8.5 Each, INHALE 1 PUFF BY MOUTH EVERY 4 HOURS NEEDED FOR 30 DAYS, 20, Refills=3 * true * Date: Generated for Brian flood/Jack/Kareyitting on: 12/05/2024 05:14 PM EST
--- OUTSIDE RECORDS SUMMARY | 2025-03-10 02:45 | XMS_ITS ---
Author Organization Francesco Lucero MD Address [address] [place], [place] [phone] Care Team Providers Care Speech Coach Name Role Phone Francesco Lucero Primary Care Provider Allergies Allergen (clinical drug ingredient) Drug/Non Drug Allergy documented on EMR Reaction Allergy Type Onset Date Status amoxicillin amox (uncoded) rash Allergy Act arvin penicillin (uncoded) rash Allergy Active Reason For Referral Reason Skin Nodule right ar m pit painful Diagnosis 1 Skin nodule (R22.9) Referral Organization Francesco Lucero MD Referring Provider First Name Francesco Referring Provider Last Name Nic Referring Provider Speciality Internal M edicine Referred Provider Edward Vasquez Referred Provider Specialty Surgery General Notes Martha Chilel 0 03/10/2025 08:16:41 AM >Called patient with info and mailed Referral Priority Routine Referral Appointment Date 03/16/2025 REASON FOR VISIT 6 WK F/U Medications Medication SIG (Take, Route, Frequency, Duration) Notes Start Date End Date Status Ibuprofen 800 MG 1 tablet with food o r milk as needed Orally Three times a day for 10 days 12/04/2020 Not-Taking Propranolol HCl ER 80 MG TAKE 1 CAPSULE BY MOUTH EVERY DAY FOR 30 DAYS for 90 Not-Taking Breo Ellipta 200-25 MCG/ACT 1 puff Inhalation Once a day 02/26/2024 Active buPROPion HCl ER (XL) 150 MG 1 tablet in the morning Orally Once a day 01/25/2025 Active Ventolin HFA * 108 (90 Base) MCG/ACT 2 puffs as needed Inhalation every 4 hrs for 30 days 05/23/2014 Active Albuterol Sulfate HFA 108 (90 Base) MCG/ACT INHALE 1 PUFF BY MOUTH EVERY 4 HOURS NEEDED FOR 30 DAYS Active Escitalopram Oxalate 20 MG TAKE 1 TABLET BY MOUTH EVERY DAY FOR 30 DAYS Active Levothyroxine Sodium 112 MCG take 1 tablet by mouth every day in the morning on an empty stomach Orally Once a day Active Zomig 2.5 MG 1 tablet Orally Once a day 01/23/2023 Active Vital Signs Blood pressure systolic 108 mm Hg 03/10/20 25 Blood pressure diastolic 74 mm Hg 025 Height 62 in 03/10/2025 Weight 173 lbs 03/10/2025 BMI 31.64 kg/m2 03/10/2025 weight is down 5 pounds [facility] e 01-25-25 Encounters Encounter Location Date Provider Diagnosis Francesco Lucero MD [address] [place] [address] [place] [phone] 03/10/2025 Francesco Lucero Mild intermittent asthma without complication J45.20 ; Dysthymia F34.1 and Skin nodule R22.9 Assessments Encounter Date Diagnosis (ICD Code) Assessment Notes Treatment Notes Treatment Clinical Notes Section Notes 03/10/2025 Mild intermittent asthma without complication (ICD-10 - J45.20) stable on meds, will contnue current regiment 03/10/2025 Dysthymia (ICD-10 - F34.1) doing great, will contnue current regiment 03/10/2025 Skin nodule (ICD-10 - R22.9) referral to [facility] [place] Plan Of Treatment Medication Medication Name Sig Start Date Stop Date Notes Breo Ellipta 200-25 MCG/ACT 1 puff Inhalation Once a day 0 02/26/2024 buPROPion HCl ER (XL) 150 MG 1 tablet in the morning Orally Once a day 01/25/2025 Ventolin HFA * 108 (90 Base) MCG/ACT 2 puffs as needed Inhalation every 4 hrs for 30 days 05/23/2014 Albuterol Sulfate HFA 108 (9 0 Base) MCG/ACT INHALE 1 PUFF BY MOUTH EVERY 4 HOURS NEEDED FOR 30 DAYS Escitalopram Oxalate 20 MG TAKE 1 TABLET BY MOUTH EVERY DAY FOR 30 DAYS Treatment Notes Assessment Notes Mild intermittent asthma without complic ation stable on meds, will contnue current regiment Dysthymia doing great, will co ntnue current regiment Skin nodule referral to [facility] surg stephen Referrals Referral Date Details 03/10/2025 03/10/2025, Skin Nod ule right arm pit painful, Edward Pedro Next Appt Details Follow Up: 2 Months, Reason: Provider Name:Francesco Pressley ier, 01/23/2026 07:15:00 AM, [address], [address], [place], [place], [phone], Provider Name:Francesco Pressley ier, 01/30/2026 08:30:00 AM, [address], [address], [place], [place], [phone], Progress Notes * BRENDAZEN Marietta KDOB: 9 (44 yo F)Acc No.[id number]:03/10/2025 Progress Notes Patient: Marietta VICK Provider: Maliha Lucero MD :1980 A ge:44 Y S ex:Female Date:03/10/2025 Address:[address] [place] [phone] Subjective: * Chief Complaints: * 6 WK F/U * HPI: S ymptom(s): patient is a 44 yo female here for 6 week follow up visit/ doing well on buproprium. is walking and is motivated. * ROS: G eneral/Constitutional: Denies C hills. D enies F atigue. D enies F ever. D enies H eadache. E NT: Denies S ore throat. R espiratory: Denies C ough. D enies S hortness of breath at rest. D enies S hortness of breath with exertion. G astrointestinal: Denies D iarrhea. D enies N ausea. * Medical History: * Surgical History: * Hospitalization/Major Diagno stic Procedure: * Medications: T akingZomig 2.5 MG Tablet 1 tablet Orally Once a day buPROPion HCl ER (XL) 150 MG Tablet Extended Release 24 Hour 1 tablet in the morning Orally Once a day Breo Ellipta 200-25 MCG/ACT Aerosol Powder Breath Activated 1 puff Inhalation Once a day Levothyroxine Sodium 112 MCG Tablet take 1 tablet by mouth every day in the morning on an empty stomach Orally Once a day Escitalopram Oxalate 20 MG Tablet TAKE 1 TABLET BY MOUTH EVERY DAY FOR 30 DAYS Albuterol Sulfate HFA 108 (90 Base) MCG/ACT Aerosol Solution INHALE 1 PUFF BY MOUTH EVERY 4 HOURS NEEDED FOR 30 DAYS Taking Zomig 2.5 MG Tablet 1 tablet Orally Once a day Taking buPROPion HCl ER (XL) 150 MG Tablet Extended Release 24 Hour 1 tablet in the morning Orally Once a day Taking Breo Ellipta 200-25 MCG/ACT Aerosol Powder Breath Activated 1 puff Inhalation Once a day Taking Levothyroxine Sodium 112 MCG Tablet take 1 tablet by mouth every day in the morning on an empty stomach Orally Once a day Taking Escitalopram Oxalate 20 MG Tablet TAKE 1 TABLET BY MOUTH EVERY DAY FOR 30 DAYS Taking Albuterol Sulfate HFA 108 (90 Base) MCG/ACT Aerosol Solution INHALE 1 PUFF BY MOUTH EVERY 4 HOURS NEEDED FOR 30 DAYS Not-Taking/PRNPropranolol HCl ER 80 [...] BY MOUTH EVERY DAY FOR 30 DAYS Not- Taking/PRN Ibuprofen 800 MG Tablet 1 tablet with food or milk as needed Orally Three times a day Not-Taking/PRN Ventolin HFA * 108 (90 Base) MCG/ACT Aerosol Solution 2 puffs as needed Inhalation every 4 hrs Medication List reviewed and reconciled with the patient * Allergies: p enicillin: rashamox: rashyes[Allergies Verified] Objective: * Vitals: H t: 62, Wt: 173, BMI:31.64, BP:108/74, Wt-k.47. weight is down 5 pounds since 01-25-25. * Examination: G eneral Examination: GENERAL APPEARANCE: p leasant, in no acute distress. HEAD: n ormocephalic. SKIN: a bnormal with one half inch cystic lesion of rt axilla. HEART: n o murmurs, rubs, gallops, regular rate and rhythm.? LUNGS: d iffuse wheezes. Assessment: * Assessment: 1. M ild intermittent asthma without complication - J45.20 (Primary) 2 . D ysthymia - F34.1 3 . S kin nodule - R22.9 Plan: * Treatment: 2. D ysthymia Continue buPROPion HCl ER (XL) Tablet Extended Release 24 Hour, 150 MG, 1 tablet in the morning, Orally, Once a day; C ontinue Escitalopram Oxalate Tablet, 20 MG, TAKE 1 TABLET BY MOUTH EVERY DAY FOR 30 DAYS. Notes: doing great, will contnue current regiment 3. S kin nodule Notes: referral to [facility] Referral To:Edward Vasquez Surgery Reason:Skin Nodule right arm pit painful 4. O thers Refill Ventolin HFA * Aerosol Solution, 108 (90 Base) MCG/ACT, 2 puffs as needed, Inhalation, every 4 hrs, 30 days, 13, Refills 3. * Procedure Codes: * Follow Up: 2 Months * * Sign off status: Completed true * Provider: Maliha Lucero MD Date: 0 03/10/2025 Generated for Brian flood/Jack/Rosannasmitting on: 1 12/05/2024 05:14 PM EST History and Physical Notes * HPI (History of Present Illness) Category Sub-Category Detail Notes Category Not es Symptom(s) patient is a 44 yo female here for 6 week follow up visit/ doing well on buproprium. is walking and is motivated Examination Category Sub-Category Detail Notes Category Not es General Examination GENERAL APPEARANCE: pleasant, in n o acute distress HEAD: normocephalic HEART: no murmurs, rubs, ga llops, regular rate and rhythm LUNGS: diffuse wheezes SKIN: abnormal with one almendarez lf inch cystic lesion of rt axilla Consultation Request Notes Referral Date Referring Provider Referred Provider Not es 03/10/2025 Francesco Lucero Pasquale Skin Nod ule right arm pit painful
--- OUTSIDE RECORDS SUMMARY | 2025-05-17 04:54 | XMS_ITS ---
Author Organization Francesco Lucero MD Address [address] [place] [phone] Care Team Providers Care Marketing Operations Coordinator Name Role Phone Francesco Lucero Primary Care Provider [phone] REASON FOR VISIT Appointment Cancelation Encounters Encounter Location Date Provider Diagnosis Francesco Lucero MD 10 [facility] [address] [place] [phone] 05/17/2025 Francesco Lucero Plan Of Treatment Next Appt Details Provider Name:Francesco Pressley ier, 01/23/2026 07:15:00 AM, [address] [place] [address], [address], [phone], Provider Name:Francesco Pressley ieshima, 01/30/2026 08:30:00 AM, [address] [place] [address], [address], [phone], Progress Notes * Marietta CORTEZ KDOB: 9 (45 yo F)Acc No.[id number]:05/17/2025 Patient: Raghu RUELAS Marietta Bernabe :1980 A ge:45 Y S ex:Female Address:[address] [place] [phone] * true * Date: Generated for Printi ng/Fascottg/eTransmitting on: 12/05/2024 05:15 PM EST
--- OUTSIDE RECORDS SUMMARY | 2025-05-17 09:45 | XMS_ITS ---
Author Organization Francesco Lucero MD Address 10 [facility] [address] [place] [address] [phone] Care Team Providers Care Coding Clerks Supervisor Name Role Phone Francesco Lucero Primary Care Provider REASON FOR VISIT RE:Appointment Cancelation Encounters Encounter Location Date Provider Diagnosis Francesco Lucero MD [address] [place] [address] [place] [address] [phone] 05/17/2025 Francesco Lucero Plan Of Treatment Next Appt Details Provider Name:Francesco Pressley ier, 01/23/2026 07:15:00 AM, [address] [place] [address], [phone], Provider Name:Francesco Pressley ier, 01/30/2026 08:30:00 AM, [address] [place] [address], [phone], Progress Notes * Marietta CORTEZ KDOB: 9 (45 yo F)Acc No.[id number]:05/17/2025 Patient: Raghu RUELAS Marietta Bernabe :1980 A ge:45 Y S ex:Female Address:[address] [place] [phone] * true * Date: Generated for Austyni aleena/Fascottg/eTransmitting on: 12/05/2024 05:14 PM EST
--- OUTSIDE RECORDS SUMMARY | 2025-05-19 12:00 | XMS_ITS ---
Author Organization Francesco Lucero MD Address [address] [place] [address] [place] [address] [phone] Care Team Providers Care Merchandise Handler Name Role Phone Francesco Lucero Primary Care Provider [phone] Allergies Allergen (clinical drug ingredient) Drug/Non Drug Allergy documented on EMR Reaction Allergy Type Onset Date Status amoxicillin amox (uncoded) rash Allergy Act arvin penicillin (uncoded) rash Allergy Active REASON FOR VISIT 2 month Encounters Encounter Location Date Provider Diagnosis Francesco Lucero MD [address] [place] [address] [place] [address] [phone] 05/19/2025 Francesco Lucero Plan Of Treatment Next Appt Details Provider Name:Francesco salas, 01/23/2026 07:15:00 AM, [address] [place] [address], [address], [phone], Provider Name:Francesco salas, 01/30/2026 08:30:00 AM, [address] [place] [address], [phone], Progress Notes * Marietta CORTEZ KDOB: 9 (45 yo F)Acc No.[id number]:05/19/2025 Progress Notes Patient: Raghu Marietta RUELAS Provider: Maliha Lucero MD :1980 A ge:45 Y S ex:Female Date:05/19/2025 Address:[address] [place], [place] [address]Oh [facility]-[id number] Subjective: * Chief Complaints: * 1 . 2 month. * ROS: G eneral/Constitutional: Denies C hills. D enies F atigue. D enies F ever. E NT: Denies S ore throat. R espiratory: Denies S hortness of breath at rest. D enies S hortness of breath with exertion. G astrointestinal: Denies D iarrhea. D enies N ausea. 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 * Allergies: P enicillin: Rash, Amox: Rash. Objective: * Vitals: Assessment: Plan: * Treatment: * * The named appointment provid er may or may not be the originator of this progress note, and it is not deemed complete until electronically signed by the appointment provider. Sign off status: Pending * Provider: Maliha Lucero MD Date: 0 05/19/2025 Generated for Brian flodo/Jack/Ignacio on: 12/05/2024 05:15 PM EST
--- OUTSIDE RECORDS SUMMARY | 2025-06-02 04:20 | XMS_ITS ---
Author Organization [facility] Address [address] [place] [phone] Care Team Providers Care Rubber Worker Name Role Phone Nic NELSON, Francesco Primary Care Provider Farhan Jha [phone] REASON FOR VISIT Patient presents today for a colon screening Encounters Encounter Location Date Provider Diagnosis [facility] [address] [place] [phone] 06/02/2025 Farhan Mazariegos Plan Of Treatment Next Appt Details Provider Name:Farhan Mendoza Mazariegos , 10/13/2025 09:20:00 AM, [address], [address], [place], [phone], Progress Notes * LAMBERTO DAVEDOB:1980 (45 yo F)Acc No.[id number]:06/02/2025 Progress Notes Patient: LAMBERTO VICK Provider: Radha Mazariegos MD :1980 A ge:45 Y S ex:Female Date:06/02/2025 Address:[address] [place], [place] [phone] Pcp:Francesco Lucero MD Subjective: * Chief Complaints: [...] MD Date: 0 06/02/2025 Generated for Brian flood/Jack/eTransmitting on: 1 12/05/2024 05:15 PM EST
--- OUTSIDE RECORDS SUMMARY | 2025-09-15 02:45 | XMS_ITS ---
Author Organization Francesco Lucero MD Address [address] [place], [place] [phone] Care Team Providers Care Pig Caster Name Role Phone Francesco Lucero Primary Care [...] Location Date Provider Diagnosis Francesco Lucero MD [address] [place] [phone] 09/15/2025 Francesco Lucero Mild intermittent asthma without [...] Reason: Provider Name:Francesco salas, 01/23/2026 07:15:00 AM, [address] [place] [address], [phone], Provider Name:Francesco salas, 01/30/2026 08:30:00 AM, [address] [place] [address], [phone], Progress Notes * Marietta CORTEZ KDOB: 9 (45 yo F)Acc No.[id number]:09/15/2025 Progress Notes Patient: Marietta VICK Provider: Maliha Lucero MD :1980 A ge:45 Y S ex:Female Date:09/15/2025 Address:[address] [place], [place] [address]RICK [phone] Subjective: * Chief Complaints: * D iscuss [...] MD Date: Generated for Brian flood/Jack/Rosannasmitting on: 12/05/2024 05:15 PM EST History and Physical Notes * Examination Category Sub-Category Detail Notes Category Not es General Examination GENERAL APPEARANCE: alert, w ell hydrated, in no distress HEART: regular rate and rhy thm, no murmurs, rubs, gallops LUNGS: abnormal diffuse whe ezes SKIN: good turgor
--- OUTSIDE RECORDS SUMMARY | 2025-09-15 04:28 | XMS_ITS ---
Author Organization Francesco Lucero MD Address [address] [place] [phone] Care Team Providers Care Wrapper Sheeter Name Role Phone Francesco Lucero Primary Care Provider REASON FOR VISIT med issue Encounters Encounter Location Date Provider Diagnosis Francesco Lucero MD [address] [facility] [address] [place] [phone] 09/15/2025 Francesco Lucero Plan Of Treatment Next Appt Details Provider Name:Francesco Pressley ieshima, 01/23/2026 07:15:00 AM, [address] [place] [address], [address] [place] [address], [phone], Provider Name:Francesco salas, 01/30/2026 08:30:00 AM, [address] [place] [address], [address] [place] [address], [phone], Progress Notes * Marietta CORTEZ KDOB: [birth year] (45 yo F)Acc No.[id number]:09/15/2025 Patient: Marietta VICK Srinivasa :1980 A ge:45 Y S ex:Female Address:[address] [place] [phone] * true * Date: Generated for Printi ng/Faxing/eTransmitting on: 12/05/2024 05:15 PM EST
--- OUTSIDE RECORDS SUMMARY | 2025-09-29 02:45 | XMS_ITS ---
Author Organization Francesco Lucero MD Address [address] [place], [place] [id number] Care Team Providers Care Car Rental Service Attendant Name Role Phone Francesco Lucero Primary Care Provider [phone] REASON FOR VISIT 1 WEEK F/U Medications Medication SIG (Take, Route, Frequency, Duration) Notes Start Date End Date Status Albuterol Sulfate (2.5 MG/3ML) 0.083% 3 mL as needed Inhalation every 6 hrs for 30 days 09/15/2025 Active predniSONE 10 MG as needed Orally 4 tabs for 3 days,3tabs for 3 days, 2 tabs for 3 days, and 1 tab for 3 days for 14 days 09/15/2025 Active Breo Ellipta 100-25 MCG/ACT 1 puff Inhalation Once a day 09/15/2025 Active Propranolol HCl ER 80 MG TAKE 1 CAPSULE BY MOUTH EVERY DAY FOR 30 DAYS for 90 Not-Taking Ibuprofen 800 MG 1 tablet with food o r milk as needed Orally Three times a day for 10 days 12/04/2020 Not-Taking Escitalopram Oxalate 20 MG TAKE 1 TABLET BY MOUTH EVERY DAY FOR 30 DAYS Active Levothyroxine Sodium 112 MCG TAKE 1 TABLET BY MOUTH EVERY DAY IN THE MORNING ON AN EMPTY STOMACH for 90 Active buPROPion HCl ER (XL) 150 MG TAKE 1 TABLET BY MOUTH EVERY DAY IN THE MORNING FOR 30 DAYS for 90 Active Albuterol Sulfate HFA 108 (90 Base) MCG/ACT INHALE 1 PUFF BY MOUTH EVERY 4 HOURS NEEDED for 30 Active Vital Signs Blood pressure systolic 112 mm Hg 09/29/20 25 Blood pressure diastolic 80 mm Hg 025 Height 62 in 09/29/2025 Weight 181 lbs 09/29/2025 BMI 33.1 kg/m2 09/29/2025 Encounters Encounter Location Date Provider Diagnosis Francesco Lucero MD [address] [place] [address] [place] [phone] 09/29/2025 Francesco Lucero Mild intermittent asthma without complication J45.20 Assessments Encounter Date Diagnosis (ICD Code) Assessment Notes Treatment Notes Treatment Clinical Notes Section Notes 09/29/2025 Mild intermittent asthma without complication (ICD-10 - J45.20) continue with breo.is off the steroids at present Plan Of Treatment Medication Medication Name Sig Start Date Stop Date Notes Breo Ellipta 100-25 MCG/ACT 1 puff Inhalation Once a day 1 Treatment Notes Assessment Notes Mild intermittent asthma without complic ation continue with breo.is off the steroids at present Next Appt Details Provider Name:Francesco salas, 01/23/2026 07:15:00 AM, [address] [place] [address], [address], [phone], Provider Name:Francesco salas, 01/30/2026 08:30:00 AM, [address] [place] [address], Suite [facility], [place], [place], [phone], Progress Notes * Marietta CORTEZ KDOB: 9 (45 yo F)Acc No.[id number]:09/29/2025 Progress Notes Patient: Marietta VICK Provider: Maliha Lucero MD :1980 A ge:45 Y S ex:Female Date:09/29/2025 Address:[address] [place] [id number] Subjective: * Chief Complaints: * 1 WEEK F/U * HPI: S ymptom(s): patient is a 45 yo female here for one week follow up visit/ doing great on updraft. * ROS: G eneral/Constitutional: [place]. D enies F atigue. D enies F ever. D enies H eadache. E NT: Denies S ore throat. R espiratory: Denies C ough. D enies S hortness of breath at rest. D enleigh S hortness of breath with exertion. G astrointestinal: Juve Renae iarrhea. D enleigh N ausea. * Medical [...] PUFF BY MOUTH EVERY 4 HOURS NEEDED Breo Ellipta 100-25 MCG/ACT Aerosol Powder Breath Activated 1 puff Inhalation Once a day Albuterol Sulfate (2.5 MG/3ML) 0.083% Nebulization Solution 3 mL as needed Inhalation every 6 hrs predniSONE 10 MG Tablet as needed Orally 4 tabs for 3 days,3tabs for 3 days, 2 tabs for 3 days, and 1 tab for 3 days Taking Escitalopram Oxalate 20 MG Tablet TAKE [...] BY MOUTH EVERY 4 HOURS NEEDED Taking Breo Ellipta 100-25 MCG/ACT Aerosol Powder Breath Activated 1 puff Inhalation Once a day Taking Albuterol Sulfate (2.5 MG/3ML) 0.083% Nebulization Solution 3 mL as needed Inhalation every 6 hrs Taking predniSONE 10 MG Tablet as needed Orally 4 tabs for 3 days,3tabs for 3 days, 2 tabs for 3 days, and 1 tab for 3 days Not-Taking/PRNPropranolol HCl ER 80 MG Capsule Extended Release 24 Hour TAKE 1 CAPSULE BY MOUTH EVERY DAY FOR 30 DAYS Ibuprofen 800 MG Tablet 1 tablet with food or milk as needed Orally Three times a day Medication List reviewed and reconciled with the patientNot-Taking/PRN Propranolol HCl ER 80 MG Capsule Extended Release 24 Hour TAKE 1 CAPSULE BY MOUTH EVERY DAY FOR 30 DAYS Not-Taking/PRN Ibuprofen 800 MG Tablet 1 tablet with food or milk as needed Orally Three times a day Medication List reviewed and reconciled with the patient Objective: * Vitals: H t: 62, Wt: 181, BMI:33.1, BP:112/80, Wt-k.1. * Examination: G eneral Examination: GENERAL APPEARANCE: a lert, well hydrated, in no distress.? SKIN: g ood turgor. HEART: r egular rate and rhythm, no murmurs, rubs, gallops.? LUNGS: n o wheezes, rales, rhonchi, good air movement, clear to auscultation bilaterally. Assessment: * Assessment: 1. M ild intermittent asthma without complication - J45.20 (Primary) Plan: * Treatment: * Procedure Codes: * * Sign off status: Completed true * Provider: Maliha Lucero MD Date: 11/29/2024 Generated for Brian flood/Jack/Rosannasmitting on: 12/05/2024 05:14 PM EST History and Physical Notes * Examination Category Sub-Category Detail Notes Category Not es General Examination GENERAL APPEARANCE: alert, w ell hydrated, in no distress HEART: regular rate and rhy thm, no murmurs, rubs, gallops LUNGS: no wheezes, rales, r honchi, good air movement, clear to auscultation bilaterally SKIN: good turgor
--- NOTE | 2025-10-05 14:10 | MHC.OFFVIS ---
Vital Signs 10/05/25 14:11 Height 5 ft 2 in Weight 179 lb BMI 32.7 BP 110/68 Blood Pressure Location Lt brachial Position Sitting Intake Visit Reasons: emb/us follow up Intake Note: here for u/s review and possible EMB Information Interpreted: non-clinical & clinical Tube Washer: Tube Washer Present (taylor) Accompanied by: Self / Same As Patient Allergies amoxicillin (Amoxicillin) Allergy (Mild, Verified 10/05/25 14:15) HIVES, rash Penicillins Allergy (Mild, Verified 10/05/25 14:15) HIVES propranolol Adverse Reaction (Unknown, Verified 10/05/25 14:15) Wheezing Medication List - Last Reconciled 10/05/25 by Virginia Chavarria LPN albuterol sulfate 90 mcg/actuation 2 puffs inhalation Q6H PRN bupropion HCl XL 150 mg PO QAM escitalopram oxalate 30 mg PO DAILY levothyroxine 150 mcg PO QAM norethindrone (contraceptive) 0.35 mg PO DAILY 84 days Is last menstrual period known: Yes Last menstrual period: 09/07/25 Do you need a note to return to daycare/school/sports/work: No HPI Comments Details: Patient is here today for a follow up on pelvic ultrasound. She reports persistent breakthrough bleeding on OCPs despite no missing pills. History of migraines with aura. Has tried Mirena IUD in the past many years ago and had frequent intolerable yeast infections. Currently not interested in that brand of cycle control today. 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 Sexual orientation: Straight/Heterosexual Gender identity: Female Female Reproductive History Menstrual Age of Menarche: 14 Date of last menstrual period: 09/07/25 control method: pills Total pregnancies: 4 Number of Living Children: 3 Ab spontaneous: 1 Date of last pap smear: 08/11/25 History of abnormal pap smear: No Date of Mammogram: 01/04/25 History of abnormal mammogram: No Review of Systems Const All systems reviewed & are unremarkable except as noted in HPI and below Physical Exam Vital Signs: Last Vital Signs BP 110/68 10/05/25 14:11 BMI result Body Mass Index 32.7 Const General: cooperative, healthy appearing and no acute distress Orientation/consciousness: patient oriented x3 GI Inspection: Yes normal to inspection Palpation (GI): Soft to palpation and Other GI palpation findings present (Nontender) Rectal Exam - Female: visual inspection normal General: Yes bladder normal to palpation External Female Exam: normal appearance of the urethra Speculum Exam - Vagina: normal appearance of the vagina, normal palpation and normal vaginal discharge Speculum Exam - Cervix: normal appearance of the cervix, normal palpation and Other cervical findings present (Post LEEP appearance) Bimanual exam- vagina & uterus: normal bimanual exam, normal palpation, uterine size normal, bladder normal to palpation, normal palpation, uterine shape normal and non-tender Bimanual Exam- Adnexa, other: normal adnexae Neuro General: patient oriented x3 Office Procedures Endometrial Biopsy Details: The patient is here today for an endometrial biopsy due to AUB to rule out any pathology including atypical, hyperplasia or cancer cells of the uterus. She was counseled regarding anticipatory guidance for the procedure including the risks for pain, infection, bleeding, perforation, potential injury to the tissues may include the cervix, uterus, tubes, bladder and bowels. These injuries may include further treatment and evaluation including surgery, blood transfusions, antibiotics, hospitalizations and anesthesia. Permanent injury and scarring can occur. She was consented for the procedure, and the consent forms were signed. She is agreeable to have the procedure today. All questions were answered. Endometrial Biopsy Procedure: The patient was placed in the dorsal lithotomy position and a sterile speculum inserted. Using aseptic technique for the procedure. The cervix was cleansed with Betadine x 3 swabs. A single toothed tenaculum was placed on the cervix for stabilization, cervix was found stenotic and was easily dilated with a graduated dilator and 1, then the uterus was sounded to 8 cm with a 4mm pipelle, and tissue sample obtained. Minimal bleeding was observed. The tissue sample was placed in formalin in a patient labeled container by staff assisting and sent to the pathology department for processing and interpretation. The patient tolerate the procedure well and was in good condition when leaving the department. Endometrial Biopsy Post Procedure Care: Nothing in the vagina including: tampons, douching or intimacy until all the bleeding has subsided. There may be some post procedure bleeding for several days, this bleeding is usually light and may turn to a light brown or pink color. Mild cramps may occurs. Nothing in the vaginal including: tampons, douching, or intimacy until all the bleeding has subsided. You may take an over the counter mild analgesic such as Tylenol or Advil (if no allergies) per the manufactures recommendation on dosing, frequency, and follow the directions completely. Call the office if any: fever (over 100.4), flu like symptoms, abdominal pain (worse than cramping), foul smelling, infected appearing vaginal discharge, or heavy bleeding. If indicated: Use condoms to prevent and STI's, and only after the bleeding has stopped completely. Return to the office in 2 weeks for results and plan of care. This note is constructed using voice recognition software. While every effort has been made to ensure accuracy, blocker and polisher errors may have been included. [id number] Biopsy Results AMB Test Urine AMB Test Urine Negative Last Edit by Virginia Chavarria LPN on 10/05/25 14:33 Results Reviewed Results Reviewed: Laboratory Last Values Tst Clinic Negative 10/05/25 14:31 [place] [id number] Ultrasound Report Signed Patient: Marietta Cortez MR#: [id number] : 1980 Acct:[id number] Age/Sex: 45 / F ADM Date: 09/28/25 Loc: HO.US Attending Dr: Lexie Hampton CNM Ordering Physician: Lexie Hampton CNM Date of Service: 09/28/25 Procedure(s): US pelvic and transvaginal Accession Number(s): [id number] cc: Francesco Lucero MD; Lexie Hampton CNM~ Reason for Exam: N93.9 - Abnormal uterine and vaginal bleeding, unspecified EXAMINATION: US PELVIS CLINICAL INFORMATION: Abnormal uterine bleeding. 45-year-old female. LMP = 3 weeks ago. History of LEEP procedure. COMPARISON: 10/13/2020. TECHNIQUE: Ultrasound of the pelvis is performed using both transabdominal and transvaginal transducers along with Doppler. Transvaginal imaging is performed due to inadequate visualization transabdominally. FINDINGS: UTERUS: The uterus is anteverted, isoflexed, and measures 9.5 x 3.6 x 4.8 cm. The cervix has a normal appearance. The double wall endometrial thickness is 7 mm. It is uniform without irregularity. The uterus is smooth in contour and has somewhat heterogeneous myometrial echogenicity. No visible fibroid. ADNEXA: The right ovary is visualized. There is normal color flow to the right adnexa. There is no right ovarian torsion. There is no pelvic ascites or fluid collection. There are no adnexal masses. Right ovary measures 2.6 x 1.9 x 2.1 cm. Volume = 5.4 mL. Normal sonographic appearance. Left ovary is not well seen on today's examination. US/US pelvic and transvaginal IMPRESSION: 1. Mildly heterogeneous myometrium without definitive focal fibroid visualized. 2. Endometrial thickness is 7 mm and appears homogeneous. 3. The right ovary could not be definitively visualized on today's examination. The left ovary is normal. Electronically signed by: Rory Hanna MD 09/28/2025 03:00 PM [facility] Dictated By: Rory Hanna MD Signed By: <Electronically signed by Rory Hanna MD in OV> 09/28/25 1500 DD/ 1426 TD/TT: 09/28/25 1435 Tile Layer Helper: Assessment & Plan Assessment & Plan (1) Abnormal uterine bleeding (AUB): Code(s): N93.9 - Abnormal uterine and vaginal bleeding, unspecified Category: Medical Plan Endometrial biopsy procedure completed today. See procedure notes. This note is constructed using voice recognition software. While every effort has been made to ensure accuracy, blocker and polisher errors may have been included. Orders: Orders AMB HCG Urine Test Today Z32.02 - Encounter for test, result negative Coding Level of Care Code Procedure Only Diagnoses Abnormal uterine bleeding (AUB) N93.9 CPT Codes Endometrial Biopsy - CPT: 72021-Clzmeipjnem Biopsy ([id number])
[2025-10-05 14:11] VITALS: BP 110/68; BMI 32.7
--- OUTSIDE RECORDS SUMMARY | 2025-10-05 17:14 | XMS_ITS | Patient Health Record ---
Author Organization Francesco Lucero MD Address [address] [place], [place] [id number] Care Team Providers Care Fisheries Manager Name Role Phone Francesco Lucero Primary Care Provider [phone] Allergies Allergen (clinical drug ingredient) Drug/Non Drug Allergy documented on EMR Reaction Allergy Type Onset Date Status amoxicillin amox (uncoded) rash Allergy Act arvin penicillin (uncoded) rash Allergy Active Results Component Value Reference Range Notes Complete Blood Count Auto Di ff Reviewed date:10/29/2024 12:27:58 PM Interpretation: Performing Lab:[facility], [address] [place] [phone] Notes/Report: White Blood Count 8.0 4.8-10.8 X10*3/uL [...] NRBC Abs Auto 0.000 0.0-0.012 X10*3/uL Comprehensive [place]. Panel Fa st Reviewed date:10/29/2024 12:29:22 PM Interpretation: Performing Lab:[address] [phone] Notes/Report: Sodium 143 135-145 mmol/L Potassium 4.5 [...] Panel Reviewed date:10/29/2024 12:26:40 PM Interpretation: Performing Lab:[facility], [address] [place] [phone] Notes/Report: Triglycerides 108 <150 mg/dL Desirable Triglyceride: [...] T4 Reviewed date:10/29/2024 12:28:07 PM Interpretation: Performing Lab:[facility], [address] [place] [phone] Notes/Report: TSH reflex Free T4 0.32 0.32-4.0 uIU/mL Brenda Matta Reviewed date:10/29/2024 12:29:02 PM Interpretation: Performing Lab:[facility], [address] [place] [phone] Notes/Report: Brenda Matta See Note Specimen held untested for 24 hours; Call to request Chemistry testing. UA CC w/rflx Micro + Cult Reviewed date:10/29/2024 12:31:30 PM Interpretation: Performing Lab:[facility], [address] [place] [phone] Notes/Report: Urine, Clean Catch Color Urine Yellow Appearance Urine Clear PH 5.5 5.0-9.0 Glucose Urine UA Negative Negative mg/dL Urine Blood Negative Negative Specific [place] - Urine 1.015 1.005-1.025 Urine Protein Negative Neg-Trace mg/dL Urine Ketones Negative Negative mg/dL Nitrite Urine Negative Negative Leukocyte Esterase Urine Negative Negative XR chest 2V Reviewed date:12/31/2024 10:42:23 AM Interpretation: Performing Lab: Notes/Report: [address] [address] XRay Report Signed Patient: Marietta Dave MR#: [id number] 11 : 1980 Acct:[id number] Age/Sex: 44 / F ADM Date: 12/30/24 Loc: .ED Attending Dr: Ordering Physician: Nate Cuevas MD Date of Service: 12/30/24 Procedure(s): XR chest 2V Accession Number(s): [id number] cc: Francesco Lucero MD; Nate Cuevas MD [...] in OV> 12/30/242207 DD/ 06 TD/TT: 12/30/242206 Hemstitching Machine Operator: [place] [address] XRay Report Signed Patient: Marcial Dave MR#: [id number] 11 : 1980 Acct:[id number] Age/Sex: 44 / F ADM Date: 12/30/24 Loc: .ED Attending Dr: Ordering Physician: Nate Cuevas MD Date of Service: 12/30/24 Procedure(s): XR chest 2V Accession Number(s): [id number] cc: Francesco Lucero MD; Nate Cuevas MD [...] in OV> 12/30/242207 DD/ 06 TD/TT: 12/30/242206 Hemstitching Machine Operator: MM tomosynthesis screening B I Reviewed date:01/11/2025 04:55:27 PM Interpretation: Performing Lab: Notes/Report: [address] [place], [place] [address] Mammography Report Signed Patient: Marietta Dave MR#: [id number] 11 : 1980 Acct:[id number] Age/Sex: 44 / F ADM Date: 01/04/25 Loc: HO.MAMMO Attending Dr: Francesco Lucero MD Ordering Physician: Francesco Lucero MD Results: 2Be nign Findings Date of Service: 01/04/25 Follow Up: 1 Year From Orig ina Mammogram Procedure(s): MM tomosynthesis screening BI Accession Number(s): [id number] cc: Francesco Lucero MD EXAMINATION: MM SCREENING [...] 01/11/25 1639 DD/ 0745 TD/TT: 01/04/25 0749 Hemstitching Machine Operator: [address] [place], [place] [address] Mammography Report Signed Patient: Marcial Dave MR#: [id number] 11 : 1980 Acct:[id number] Age/Sex: 44 / F ADM Date: 01/04/25 Loc: HO.MAMMO Attending Dr: Francesco Lucero MD Ordering Physician: Francesco Lucero MD Results: 2Be nign Findings Date of Service: 10/18 Follow Up: 1 Year From Orig inal Mammogram Procedure(s): MM tomosynthesis screening BI Accession Number(s): [id number] cc: Francesco Lucero MD EXAMINATION: MM SCREENING [...] 01/11/25 1639 DD/ 0745 TD/TT: 01/04/25 0749 Hemstitching Machine Operator: Pathology Reviewed date:07/06/2025 02:08:06 PM Interpretation: Performing Lab:[facility], [address] [place] [address] Notes/Report: ------ Name: Marietta Dave Age/Sex: 45/F : 1980 Unit#: [id number] Attend Dr: Chepe Stock MD Re07/04/25 Status : DEP REF Location: [facility] Disch: ------ SPEC : [id number] RECD : 07/05/25011 STATUS: RICKY MARTIN NUM: [id number] LINA: 07/04/25-[address] [facility] [address]: Chepe Stock MD ENTERED: 07/05/25-08 [...] developed and their performance characteristics determined by [facility]. They have not been cleared or appr anya by the U.S. Food and Drug Administration (FDA). However, the FDA has determined that such clearance or approval is not necessary. This laboratory is certified under the Clinical Laboratory Improvement Amendments of 1988 (CLIA) as qualified to perform high comp lexity clinical laboratory testing. Copies To: Francesco Lucero MD [facility] [address] [place] [address] CONTINUED ON NEXT PAGE ------ Name: Marietta Dave Age/Sex: 45/F : 1980 Unit#: [id number] Attend Dr: Chepe Stock MD Re07/04/25 Status : DEP REF Location: [facility] Disch: ------ SPEC : [id number] RECD : 07/05/25-2944 STATUS: RICKY MARTIN NUM: [id number] LINA: 07/04/25-269[facility] DR: Chepe Stock MD ENTERED: 07/05/25- SP TYPE: Surgical OTHR DR: Francesco Lucero MD ORDERED: Gross Micro L3 Copies To: (Continued) Chepe Stock MD [facility] [address] [place] [address] ------ Signed (signature on file) Aleah Ivy 07/06/25 1120 ------ END OF REPORT Vitamin D 25-OH (D2 and D3) Reviewed date:08/18/2025 04:26:45 PM Interpretation: Performing Lab:[facility], [address] [place] [phone] Notes/Report: Vitamin D 25-OH, D2 <4 This test was developed and its analytical performance characteristics have been determined by [facility] [place], [place]. It has not been cleared or approved by the U.S. Food and Drug Administration. This assay has been validated pursuant to the CLIA regulations and is used for clinical purposes. THIS TEST WAS PERFORMED AT: [employer] [place] [address] [place], [place] BONI ALMONTE MD,PHD Vitamin D 25-OH, D3 23 This test was developed and its analytical performance characteristics have been determined by [facility] [place], [place]. It has not been cleared or [...] ng/mL. For additional information, please refer to http://education.BioSET/fa q/FJR239 (This link is being provided for informational/ educational purposes only.) Thyroid Stimulating Hormone Reviewed date:08/10/2025 05:54:54 PM Interpretation: Performing Lab:[facility], [address] [place] [phone] Notes/Report: Thyroid Stimulating Hormone 2.04 0.32-4.0 uIU/mL TSH 3rd Generation ([facility]) CT NG by PCR Reviewed date:08/11/2025 12:23:34 PM Interpretation: Performing Lab:[facility], [address] [place] [phone] Notes/Report: CT PCR NOT DETECTED Not Detect. [...] Panel Reviewed date:08/11/2025 12:23:44 PM Interpretation: Performing Lab:[facility], [address] [place] [phone] Notes/Report: Trichomonas vaginalis PCR NOT DETECTED Not [...] Smear Reviewed date:08/16/2025 06:20:27 PM Interpretation: Performing Lab:[facility], [address] [place] [phone] Notes/Report: ------ Name: Marietta Dave Age/Sex: 45/F : 1980 Unit#: [id number] Attend Dr: Lexie Hampton CNM Re08/10/25 Status : DEP REF Location: [facility] Disch: ------ SPEC : [id number] REC STATUS: RICKY MARTIN NUM: [id number] LINA: 08/10/[address] [facility] [address]: Lexie Hampton CN ENTERED: 08/11/25 [...] and HPV testing will be performed at [facility] (CLIA #[id number]), [address] [place] [address]. Testing for H PV was performed using [...] All professional ser vices are performed by [facility] ([address] [place] [address], [place] [address]; P h: [phone]; CLIA #[id number]). The PAP Test is a screening procedure with the inherent possibility of both false negative and false positive results. Results should be interpreted in the context of historic and current clinical fin dings. Reliability of the PAP Test is enhanced by performing the test on a regular repetit arvin basis. CONTINUED ON NEXT PAGE ------ Name: Marietta Dave Age/Sex: 45/F : 1980 Unit#: [id number] Attend Dr: Lexie Hampton CNM Re08/10/25 Status : [facility] Location: [facility] Disch: ------ SPEC : [id number] REC STATUS: RICKY MARTIN NUM: [id number] LINA: 08/10/25-[address] [facility] [address]: Lexie Hampton CNM ENTERED: 08/11/25-07 24 SP TYPE: Pap Smr OTHR DR: Francesco Lucero MD ORDERED: Pap Smear Copies To: Francesco Lucero MD [facility] [address] [facility] [address] [place] [address] Lexie Hampton CNM [facility] Women[facility] [address] [place] [address] ------ Signed (signature on file) Carmenluz maria Bagley CT (ASCP) 08/16/25 1350 ------ END OF REPORT HPV High risk Reviewed date:08/15/2025 05:05:04 PM Interpretation: Performing Lab:[facility], [address] [place] [phone] Notes/Report: HPV High Risk Negative Negative HPV Genotype 16 Negative Negative HPV Genotype 18 Negative Negative HPV testing performed at [facility] (IA #[id number]) , [address] [place] [address]. Testing for HPV was performed using the [...] were not detected. US pelvic and transvaginal Reviewed date:09/29/2025 07:59:06 AM Interpretation: Performing Lab: Notes/Report: [address] [place] [address] Ultrasound Report Signed Patient: Marietta Dave MR#: [id number] 11 : 1980 Acct:[id number] Age/Sex: 45 / F ADM Date: 09/28/25 Loc: HO.US Attending Dr: Lexie Hampton CNM Ordering Physician: Lexie Hampton CNM Date of Service: 09/28/25 Procedure(s): US pelvic and transvaginal Accession Number(s): [id number] cc: Francesco Lucero MD; Lexie Hampton CNM [...] by: Rory Hanna MD 09/28/2025 03:00 PM [facility] [place] [place] Dictated By: Rory Hanna MD Signed By: <Electronically signed by Rory Hanna MD in OV> 09/28/25 1500 DD/ 1426 TD/TT: 09/28/25 1435 Hemstitching Machine Operator: [address] [address] Ultrasound Report Signed Patient: Marcial Dave MR#: [id number] 11 : 1980 Acct:[id number] Age/Sex: 45 / F ADM Date: 09/28/25 Loc: .US Attending Dr: Lexie Hampton CNM Ordering Physician: Lexie Hampton CNM Date of Service: 09/28/25 Procedure(s): US pel lizz and transvaginal Accession Number(s): [id number] cc: Francesco Lucero MD; Lexie Hampton CNM [...] Rory Hanna MD 09/28/2025 03:00 PM EST Dictated By: Rory Reza MD Signed By: <Sarah chao signed by Rory Hanna MD in OV> 09/28/25 1500 DD/ 1426 TD/TT: 09/28/25 1435 Hemstitching Machine Operator: Reason For Referral Reason SCREEN FOR [...] Duration) Notes Start Date End Date Status Escitalopram Oxalate 20 MG TAKE 1 TABLET [...] EVERY 4 HOURS NEEDED for 30 Active Albuterol Sulfate (2.5 MG/3ML) 0.083% 3 [...] a day for 10 days 12/04/2020 Not-Taking Immunizations Vaccine Route Administration Date Status Comme [...] Problem Status W/U Status Risk Notes Problem 05792239 Anxiety (F41.9) Active confirmed Problem 457403630 Acquired hypothyroidism (E03.9) Active confirmed Problem 397441594 Mild intermitten t asthma without complication (J45.20) Active confirmed Problem Alcohol abuse (68582908) Alcohol abuse (F10.10) Active confirmed Problem 4282529 Migraine with au ra and without status migrainosus, not intractable (G43.109) Active confirmed Problem Dysthymia (94700739) Dysthymia (F34.1) Active confirmed Problem 709945655 Vaginal bleeding (N93.9) Active confirmed Problem Obsessive-com pulsive disorder (752262616) Obsessive thinking (F42.8) Active confirmed Vital Signs Blood pressure diastolic 80 mm Hg 09/29/2025 Height 62 in 09/29/2025 Blood pressure systolic 112 mm Hg 09/29/2025 Weight 181 lbs 09/29/2025 BMI 33.1 kg/m2 09/29/2025 Encounters Encounter Location Date Provider Diagnosis Francesco Lucero MD [address] [place] [id number] 10/29/2024 Francesco Lucero Blood tests for routine general physical examination Z00.00 and Acquired hypothyroidism E03.9 Francesco Lucero MD [address] [id number] 01/25/2025 Francesco Lucero Alcohol abuse F10.10 ; Annual physical exam Z00.00 ; Dysthymia F34.1 ; Skin nodule R22.9 ; Acquired hypothyroidism E03.9 ; Mild intermittent asthma without complication J45.20 and Depression screening Z13.31 Francesco Lucero MD [address] [place] [id number] 03/10/2025 Francesco Lucero Mild intermittent asthma without complication J45.20 ; Dysthymia F34.1 and Skin nodule R22.9 Francesco Lucero MD [address] [place] [id number] 09/15/2025 Francesco Lucero Mild intermittent asthma without complication J45.20 Francesco Lucero MD [address] [place] [id number] 09/29/2025 Francesco Lucero Mild intermittent asthma without complication J45.20 Francesco Lucero MD [address] [place] [id number] 12/31/2024 Francesco Lucero MD [address] [id number] 09/15/2025 Francesco Lucero MD [address] [place] [id number] 10/25/2024 Francesco Lucero MD [address] [place] [id number] 11/04/2024 Francesco Lucero MD [address] [place] [id number] 03/01/2025 Francesco Lucero MD [address] [place] [id number] 05/17/2025 Francesco Lucero MD [address] [place] [id number] 05/17/2025 Francesco Lucero Assessments Encounter Date Diagnosis [...] understanding of medication and directions for use 09/29/2025 Mild intermittent asthma without complication (ICD-10 - J45.20) continue with breo.is off the steroids at present 01/25/2025 Dysthymia (ICD-10 - F34.1) is getting worse, patient verbalized understanding of medicatioj and directions for use 03/10/2025 Skin nodule (ICD-10 - R22.9) referral to [facility] surgery 01/25/2025 Skin nodule (ICD-10 [...] 09/17/2023 Next Appt Details Provider Name:Francesco salas, 01/23/2026 07:15:00 AM, [address] [place] [address], [address], [phone], Provider Name:Francesco salas, 01/30/2026 08:30:00 AM, [address] [place] [address], [address], [place], [place], [phone], Insurance Providers Payer Name Payer Address Payer Phone Subscriber Number Group Number Insured Name Patient Relationship to Insured Coverage Start Date Coverage End Date [address] [facility] [place] [phone] [id number] Marietta Dave Self - patient is the insured Medical (General) History Medical History History ICD Code appt in January [employer]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 Soler
--- OUTSIDE RECORDS SUMMARY | 2025-10-05 17:15 | XMS_ITS | Patient Health Record ---
Author Organization [facility] Address [address] [place] [address] Care Team Providers Care Appliance Counselor Name Role Phone Francesco Lucero MD Primary Care Provider Farhan Jha [phone] Reason For Referral No Information Encounters Encounter Location Date Provider Diagnosis [facility] [address] [place] [address] 06/01/2025 Farhan Mazariegos Plan Of Treatment Next Appt Details Provider Name:Farhan Mazariegos , 10/13/2025 09:20:00 AM, [address], [address], [place], [address], Insurance Providers Payer Name Payer Address Payer Phone Subscriber Number Group Number Insured Name Patient Relationship to Insured Coverage Start Date Coverage End Date [facility] [address] [place] [phone] [id number] LAMBERTO DAVE Self - patient is the insured
== END 2025-10-05 16:48 | disposition home or self-care (01) ==
LOC: HO.HWS 14:00
PROVIDERS: PCP Internal Medicine; Visit Provider Advanced Practice Midwife
DX: N93.9 Abnormal uterine and vaginal bleeding, unspecified (principal); Z32.02 Encounter for pregnancy test, result negative
CPT/HCPCS: 58100

== ENCOUNTER 2025-11-08 13:44 | Outpatient (AMB) | payer OTHER, SELFPAY ==
--- OUTSIDE RECORDS SUMMARY | 2024-12-31 06:43 | XMS_ITS ---
Author Organization Francesco Lucero MD Address [address] [place] [phone] Care Team Providers Care Roof Foreman Name Role Phone Francesco Lucero Primary Care Provider REASON FOR VISIT ER Encounters Encounter Location Date Provider Diagnosis Francesco Lucero MD [facility] [address] [place] [phone] 12/31/2024 Francesco Lucero Plan Of Treatment Next Appt Details Provider Name:Francesco salas, 01/23/2026 07:15:00 AM, [address] [place] [address], [address] [place] [address], [phone], Provider Name:Francesco salas, 01/30/2026 08:30:00 AM, [address] [place] [address], [address], [phone], Progress Notes * Marietta CORTEZ KDOB: [birth year] (44 yo F)Acc No.[id number]:12/31/2024 Patient: Raghu RUELAS Amdouglas Bernabe :1980 A ge:44 Y S ex:Female Address:[address] [place] [phone] * true * Date: Generated for Austyni ng/Fascottg/eTransmitting on: 1 01/09/2025 05:53 PM EST
--- OUTSIDE RECORDS SUMMARY | 2025-01-25 03:30 | XMS_ITS ---
Author Organization Francesco Lucero MD Address [address] [place], [place] [phone] Care Team Providers Care Automotive Brake Adjuster Name Role Phone Francesco Lucero Primary Care [...] Status W/U Status Risk Notes Problem Dysthymia ([id number]) Dysthymia (F34.1) Active confirmed Vital Signs Blood pressure systolic 122 mm Hg 01/26/20 25 Blood pressure diastolic 90 mm Hg 025 Height 62 in 01/25/2025 Weight 178 lbs 01/25/2025 BMI 32.55 kg/m2 01/25/2025 weight is up 11 pounds since 05-20-24 Encounters Encounter Location Date Provider Diagnosis Francesco Lucero MD [address] [place] [address] Drive [address] [place], [place] [phone] 01/25/2025 Francesco Lucero Alcohol abuse F10.10 ; [...] 01/25/2025 01/25/2025, SCREEN F OR COLON CANCER, Farahn Mazariegos Next Appt Details Follow Up: 6 Weeks, Reason: Provider Name:Francesco salas, 01/23/2026 07:15:00 AM, [address], [address], [place], [phone], Provider Name:Francesco Fernando Pressley ier, 01/30/2026 08:30:00 AM, [address], [address], [place], [phone], Progress Notes * Marietta CORTEZ KDOB: 9 (44 yo F)Acc No.[id number]:01/25/2025 Progress Notes Patient: Marietta VICK Provider: Maliha Lucero MD :1980 A ge:44 Y S ex:Female Date:01/25/2025 Address:[address] [place] [address] RICK CAMPOS [id number] Subjective: * Chief Complaints: * A nnual [...] 05-20-24. * P ast Orders: L ab:Comprehensive Annabella. Panel Fast (Order Date - 10/29/2024) (Collection [...] mg/dL Urine Blood Negative Negative - Specific Kenna - Urine 1.015 1.005-1.025 - Urine Protein [...] masses palpable. RECTAL EXAM: d one by ticket chopper assembler. FEMALE GENITOURINARY: d one by ticket chopper assembler. EXTREMITIES: n o clubbing, cyanosis, or edema. [...] 0 01/25/2025 Generated for Brian flood/Jack/Rosannasmitting on: 1 01/09/2025 05:53 PM EST History and Physical Notes * [...] Mild Depression Interpretation and Intervention Depression Jordye sihva Findings: Negative Follow-Up for Depression: : review [...] mass, no lump RECTAL EXAM: done by ticket chopper assembler FEMALE GENITOURINARY: done by ticket chopper assembler ORAL CAVITY: mucosa moist Consultation Request Notes Referral Date Referring Provider Referred Provider Not es 01/25/2025 Francesco Lucero Robert SCREEN FOR COLON CANCER
--- OUTSIDE RECORDS SUMMARY | 2025-03-01 09:09 | XMS_ITS ---
Author Organization Francesco Lucero MD Address [address] [place] [address] [place] [phone] Care Team Providers Care Electronics Production Supervisor Name Role Phone Francesco Lucero Primary Care Provider REASON FOR VISIT New Refill Request Medications Medication SIG (Take, Route, Frequency, Duration) Notes Start Date End Date Status Albuterol Sulfate HFA 108 (90 Base) MCG/ACT INHALE 1 PUFF BY MOUTH EVERY 4 HOURS NEEDED FOR 30 DAYS for 20 Active Encounters Encounter Location Date Provider Diagnosis Francesco Lucero MD [address] [place] [address] [place] [phone] 03/01/2025 Francesco Lucero Plan Of Treatment Medication Medication Name Sig Start Date Stop Date Notes Albuterol Sulfate HFA 108 (9 0 Base) MCG/ACT INHALE 1 PUFF BY MOUTH EVERY 4 HOURS NEEDED FOR 30 DAYS for 20 Next Appt Details Provider Name:Francesco salas, 01/23/2026 07:15:00 AM, [address] [place] [address], [address], [phone], Provider Name:Francesco salas, 01/30/2026 08:30:00 AM, [address] [place] [address], [address], [phone], Progress Notes * Marietta CORTEZ KDOB: 9 (44 yo F)Acc No.[id number]:03/01/2025 Patient: Raghu Marietta RUELAS :1980 A ge:44 Y S ex:Female Address:[address] [place] [address] [place] [address] * Refills Refill Albuterol Sulfate HFA Aerosol Solution, 108 (90 Base) MCG/ACT, 8.5 Each, INHALE 1 PUFF BY MOUTH EVERY 4 HOURS NEEDED FOR 30 DAYS, 20, Refills=3 * true * Date: Generated for Brian flood/Jack/Kareyitting on: 01/09/2025 05:52 PM EST
--- OUTSIDE RECORDS SUMMARY | 2025-03-10 02:45 | XMS_ITS ---
Author Organization Francesco Lucero MD Address [address] [place], [place] [phone] Care Team Providers Care Major Sales Associate Name Role Phone Francesco Lucero Primary Care Provider [phone] Allergies Allergen (clinical drug ingredient) Drug/Non Drug [...] kg/m2 03/10/2025 weight is down 5 pounds [facility] e 01-25-25 Encounters Encounter Location Date Provider Diagnosis Francesco Lucero MD [address] [place] [address] [place] [phone] 03/10/2025 Francesco Lucero Mild intermittent asthma without [...] Skin nodule (ICD-10 - R22.9) referral to [facility] surgery Plan Of Treatment Medication Medication Name [...] ntnue current regiment Skin nodule referral to [facility] surg stephen Referrals Referral Date Details 03/10/2025 03/10/2025, Skin Nod ule right arm pit painful, Edward Pedro Next Appt Details Follow Up: 2 Months, Reason: Provider Name:Francesco Pressley ier, 01/23/2026 07:15:00 AM, [address], [address], [place], [place], [phone], Provider Name:Francesco Pressley ier, 01/30/2026 08:30:00 AM, [address], [address], [place], [place], [phone], Progress Notes * BRENDAZEN Marietta KDOB: 9 (44 yo F)Acc No.[id number]:03/10/2025 Progress Notes Patient: Marietta VICK Provider: Maliha Lucero MD :1980 A ge:44 Y S ex:Female Date:03/10/2025 Address:[address] [place] [phone] Subjective: * Chief Complaints: * 6 WK [...] 3. S kin nodule Notes: referral to [facility] surgery Referral To:Edward Vasquez Surgery Reason:Skin Nodule [...] 03/10/2025 Generated for Brian flood/Jack/Rosannasmitting on: 1 01/09/2025 05:51 PM EST History and Physical Notes * [...]
--- OUTSIDE RECORDS SUMMARY | 2025-05-17 04:54 | XMS_ITS ---
Author Organization Francesco Lucero MD Address [address] [place] [phone] Care Team Providers Care Occupational Therapy Instructor Name Role Phone Francesco Lucero Primary Care Provider REASON FOR VISIT Appointment Cancelation Encounters Encounter Location Date Provider Diagnosis Francesco Lucero MD [facility] [address] [place] [phone] 05/17/2025 Francesco Lucero Plan Of Treatment Next Appt Details Provider Name:Francesco Pressley ier, 01/23/2026 07:15:00 AM, [address] [place] [address], [address], [phone], Provider Name:Francesco Pressley ieshima, 01/30/2026 08:30:00 AM, [address] [place] [address], [address], [phone], Progress Notes * Marietta CORTEZ KDOB: 9 (45 yo F)Acc No.[id number]:05/17/2025 Patient: Raghu RUELAS Amdouglas Bernabe :1980 A ge:45 Y S ex:Female Address:[address] [place] [phone] * true * Date: Generated for Austyni ng/Fascottg/eTransmitting on: 1 01/09/2025 05:52 PM EST
--- OUTSIDE RECORDS SUMMARY | 2025-05-17 09:45 | XMS_ITS ---
Author Organization Francesco Lucero MD Address 10 [facility] [address] [place] [address] [phone] Care Team Providers Care Trade Embalmer Name Role Phone Francesco Lucero Primary Care Provider REASON FOR VISIT RE:Appointment Cancelation Encounters Encounter Location Date Provider Diagnosis Francesco Lucero MD [address] [place] [address] [address] [place] [address] [phone] 05/17/2025 Francesco Lucero Plan Of Treatment Next Appt Details Provider Name:Francesco Pressley ier, 01/23/2026 07:15:00 AM, [address] [place] [address], [phone], Provider Name:Francesco Pressley ier, 01/30/2026 08:30:00 AM, [address] [place] [address], [phone], Progress Notes * Marietat CORTEZ KDOB: 9 (45 yo F)Acc No.[id number]:05/17/2025 Patient: Raghu RUELAS Marietta Bernabe :1980 A ge:45 Y S ex:Female Address:[address] [place] [phone] * true * Date: Generated for Austyni aleena/Martag/eTransmitting on: 1 01/09/2025 05:52 PM EST
--- OUTSIDE RECORDS SUMMARY | 2025-05-19 12:00 | XMS_ITS ---
Author Organization Francesco Lucero MD Address [address] [place] [address] [place] [address] [phone] Care Team Providers Care Glass Bulb Machine Adjuster Name Role Phone Francesco Lucero Primary Care Provider Allergies Allergen (clinical drug ingredient) Drug/Non Drug Allergy documented on EMR Reaction Allergy Type Onset Date Status amoxicillin amox (uncoded) rash Allergy Act arvin penicillin (uncoded) rash Allergy Active REASON FOR VISIT 2 month Encounters Encounter Location Date Provider Diagnosis Francesco Lucero MD [address] [place] [address] [address] [place] [address] [phone] 05/19/2025 Francesco Lucero Plan Of Treatment Next Appt Details Provider Name:Francesco salas, 01/23/2026 07:15:00 AM, [address] [place] [address], [address], [phone], Provider Name:Francesco salas, 01/30/2026 08:30:00 AM, [address] [place] [address], [phone], Progress Notes * Marietta CORTEZ KDOB: 9 (45 yo F)Acc No.[id number]:05/19/2025 Progress Notes Patient: Raghu Marietta RUELAS Provider: Maliha Lucero MD :1980 A ge:45 Y S ex:Female Date:05/19/2025 Address:[address] [place], [place] [address]Oh [facility]-[id number] Subjective: * Chief Complaints: * 1 . 2 month. * ROS: G eneral/Constitutional: Denies C hills. D enies F atigue. D enies F ever. E NT: Denies S ore throat. R espiratory: Denies S hortness of breath at rest. D enies S hortness of breath with exertion. G astrointestinal: Denies D iarrhea. D enies N ausea. 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 * Allergies: P enicillin: Rash, Amox: Rash. Objective: * Vitals: Assessment: Plan: * Treatment: * * The named appointment provid er may or may not be the originator of this progress note, and it is not deemed complete until electronically signed by the appointment provider. Sign off status: Pending * Provider: Maliha Lucero MD Date: 0 05/19/2025 Generated for Brian flood/Jack/Ignacio on: 1 01/09/2025 05:53 PM EST
--- OUTSIDE RECORDS SUMMARY | 2025-06-02 04:20 | XMS_ITS ---
Author Organization [facility] Address [address] [place] [phone] Care Team Providers Care Hair Colorist Name Role Phone Nic NELSON, Francesco Primary Care Provider Farhan Jha [phone] REASON FOR VISIT Patient presents today for a colon screening Encounters Encounter Location Date Provider Diagnosis [facility] [address] [place] [phone] 06/02/2025 Farhan Mazariegos Plan Of Treatment Next Appt Details Provider Name:Farhan Mazariegos , 12/12/2025 12:50:00 PM, [address] [place] [address], [phone], Progress Notes * LAMBERTO DAVEDOB:1980 (45 yo F)Acc No.[id number]:06/02/2025 Progress Notes Patient: LAMBERTO VICK Provider: Radha Mazariegos MD :1980 A ge:45 Y S ex:Female Date:06/02/2025 Address:[address] [place], [place] [phone] Pcp:Francesco Lucero MD Subjective: * Chief Complaints: * P atient presents today for a colon screening * The named appointment provid er may or may not be the originator of this progress note, and it is not deemed complete until electronically signed by the appointment provider. Sign off status: Pending * Provider: Radha Mazariegos MD Date: 0 06/02/2025 Generated for Austyni aleena/Jack/eTransmitting on: 1 01/09/2025 05:53 PM EST
--- OUTSIDE RECORDS SUMMARY | 2025-09-15 02:45 | XMS_ITS ---
Author Organization Francesco Lucero MD Address [address] [place], [place] [phone] Care Team Providers Care Sofa Cover Inspector Name Role Phone Francesco Lucero Primary Care Provider [phone] Allergies Allergen (clinical drug ingredient) Drug/Non Drug Allergy documented on EMR Reaction Allergy Type Onset Date Status amoxicillin amox (uncoded) rash Allergy Act arvin penicillin (uncoded) rash Allergy Active REASON FOR VISIT discuss asthma medication Medications Medication SIG (Take, Route, Frequency, Duration) Notes Start Date End Date Status predniSONE 10 MG as needed Orally 4 tabs for 3 days,3tabs for 3 days, 2 tabs for 3 days, and 1 tab for 3 days for 14 days 09/15/2025 Active Albuterol Sulfate (2.5 MG/3ML) 0.083% 3 mL as needed Inhalation every 6 hrs for 30 days 09/15/2025 Active Breo Ellipta 100-25 MCG/ACT 1 puff Inhalation Once a day for 30 days 09/15/2025 Active Ibuprofen 800 MG 1 tablet with food o r milk as needed Orally Three times a day for 10 days 12/04/2020 Not-Taking Propranolol HCl ER 80 MG TAKE 1 CAPSULE BY MOUTH EVERY DAY FOR 30 DAYS for 90 Not-Taking Albuterol Sulfate HFA 108 (90 Base) MCG/ACT INHALE 1 PUFF BY MOUTH EVERY 4 HOURS NEEDED for 30 Active buPROPion HCl ER (XL) 150 MG TAKE 1 TABLET BY MOUTH EVERY DAY IN THE MORNING FOR 30 DAYS for 90 Active Levothyroxine Sodium 112 MCG TAKE 1 TABLET BY MOUTH EVERY DAY IN THE MORNING ON AN EMPTY STOMACH for 90 Active Escitalopram Oxalate 20 MG TAKE 1 TABLET BY MOUTH EVERY DAY FOR 30 DAYS Active Vital Signs Blood pressure systolic 124 mm Hg 09/15/20 25 Blood pressure diastolic 80 mm Hg 025 Height 62 in 09/15/2025 Weight 177 lbs 09/15/2025 BMI 32.37 kg/m2 09/15/2025 weight is up 4 pounds since 03-10-25 Encounters Encounter Location Date Provider Diagnosis Francesco Lucero MD [address] [place] [phone] 09/15/2025 Francesco Lucero Mild intermittent asthma without complication J45.20 Assessments Encounter Date Diagnosis (ICD Code) Assessment Notes Treatment Notes Treatment Clinical Notes Section Notes 09/15/2025 Mild intermittent asthma without complication (ICD-10 - J45.20) patient verbalized understanding of medication and directions for use Plan Of Treatment Medication Medication Name Sig Start Date Stop Date Notes predniSONE 10 MG as needed Orally 4 t abs for 3 days,3tabs for 3 days, 2 tabs for 3 days, and 1 tab for 3 days for 14 days 09/15/2025 Albuterol Sulfate (2.5 MG/3ML) 0.083% 3 mL as needed Inhalation every 6 hrs for 30 days 09/15/2025 Breo Ellipta 100-25 MCG/ACT 1 puff Inhal ation Once a day for 30 days 09/15/2025 Treatment Notes Assessment Notes Mild intermittent asthma wit hout complication patient verbalized understanding of medication and directions for use Next Appt Details Follow Up: 1 Week, Reason: Provider Name:Francesco salas, 01/23/2026 07:15:00 AM, [address] [place] [address], [phone], Provider Name:Francesco salas, 01/30/2026 08:30:00 AM, [address] [place] [address], [phone], Progress Notes * Marietta CORTEZ KDOB: 9 (45 yo F)Acc No.[id number]:09/15/2025 Progress Notes Patient: Marietta VICK Provider: Maliha Lucero MD :1980 A ge:45 Y S ex:Female Date:09/15/2025 Address:[address] [place], [place] [address]RICK [id number] Subjective: * Chief Complaints: * D iscuss asthma medication * HPI: S ymptom(s): patient is a 45 yo female here to discuss asthma medications/ having increasing difficulty with breathing. had been on breo in past./ has problesm with asthma in fall ever since covid. * ROS: G eneral/Constitutional: Denies C hills. D enies F atigue. D enies F ever. D enies H eadache. E NT: Denies S ore throat. R espiratory: Admits C ough. A dmits S hortness of breath at rest. A dmits S hortness of breath with exertion. D enies S putum production. A dmits W heezing. G astrointestinal: Juve D iarrhea. D enleigh N ausea. * Medical History: * Surgical History: * Hospitalization/Major Diagno stic Procedure: * Medications: T akingEscitalopram Oxalate 20 MG Tablet TAKE 1 TABLET BY MOUTH EVERY DAY FOR 30 DAYS Levothyroxine Sodium 112 MCG Tablet TAKE 1 TABLET BY MOUTH EVERY DAY IN THE MORNING ON AN EMPTY STOMACH buPROPion HCl ER (XL) 150 MG Tablet Extended Release 24 Hour TAKE 1 TABLET BY MOUTH EVERY DAY IN THE MORNING FOR 30 DAYS Albuterol Sulfate HFA 108 (90 Base) MCG/ACT Aerosol Solution INHALE 1 PUFF BY MOUTH EVERY 4 HOURS NEEDED Taking Escitalopram Oxalate 20 MG Tablet TAKE 1 TABLET BY MOUTH EVERY DAY FOR 30 DAYS Taking Levothyroxine Sodium 112 MCG Tablet TAKE 1 TABLET BY MOUTH EVERY DAY IN THE MORNING ON AN EMPTY STOMACH Taking buPROPion HCl ER (XL) 150 MG Tablet Extended Release 24 Hour TAKE 1 TABLET BY MOUTH EVERY DAY IN THE MORNING FOR 30 DAYS Taking Albuterol Sulfate HFA 108 (90 Base) MCG/ACT Aerosol Solution INHALE 1 PUFF BY MOUTH EVERY 4 HOURS NEEDED Not-Taking/PRNPropranolol HCl ER 80 MG Capsule Extended Release 24 Hour TAKE 1 CAPSULE BY MOUTH EVERY DAY FOR 30 DAYS Ibuprofen 800 MG Tablet 1 tablet with food or milk as needed Orally Three times a day Not-Taking/PRN Propranolol HCl ER 80 MG Capsule Extended Release 24 Hour TAKE 1 CAPSULE BY MOUTH EVERY DAY FOR 30 DAYS Not-Taking/PRN Ibuprofen 800 MG Tablet 1 tablet with food or milk as needed Orally Three times a day DiscontinuedZomig 2.5 MG Tablet 1 tablet Orally Once a day Ventolin HFA * 108 (90 Base) MCG/ACT Aerosol Solution 2 puffs as needed Inhalation every 4 hrs Breo Ellipta 200-25 MCG/ACT Aerosol Powder Breath Activated 1 puff Inhalation Once a day Medication List reviewed and reconciled with the patientDiscontinued Zomig 2.5 MG Tablet 1 tablet Orally Once a day Discontinued Ventolin HFA * 108 (90 Base) MCG/ACT Aerosol Solution 2 puffs as needed Inhalation every 4 hrs Discontinued Breo Ellipta 200-25 MCG/ACT Aerosol Powder Breath Activated 1 puff Inhalation Once a day Medication List reviewed and reconciled with the patient * Allergies: p enicillin: rashamox: rashyes[Allergies Verified] Objective: * Vitals: H t: 62, Wt: 177, BMI:32.37, BP:124/80, Wt-k.29. weight is up 4 pounds since 03-10-25. * Examination: G eneral Examination: GENERAL APPEARANCE: a lert, well hydrated, in no distress.? SKIN: g ood turgor. HEART: r egular rate and rhythm, no murmurs, rubs, gallops.? LUNGS: a bnormal diffuse wheezes. Assessment: * Assessment: 1. M ild intermittent asthma without complication - J45.20 (Primary) Plan: * Treatment: * Procedure Codes: * Follow Up: 1 Week * * Sign off status: Completed true * Provider: Maliha Lucero MD Date: Generated for Brian flood/Jack/Rosannasmitting on: 01/09/2025 05:52 PM EST History and Physical Notes * Examination Category Sub-Category Detail Notes Category Not es General Examination GENERAL APPEARANCE: alert, w ell hydrated, in no distress HEART: regular rate and rhy thm, no murmurs, rubs, gallops LUNGS: abnormal diffuse whe ezes SKIN: good turgor
--- OUTSIDE RECORDS SUMMARY | 2025-09-15 04:28 | XMS_ITS ---
Author Organization Francesco Lucero MD Address [address] [place] [phone] Care Team Providers Care Cover Cutter Name Role Phone Francesco Lucero Primary Care Provider REASON FOR VISIT med issue Encounters Encounter Location Date Provider Diagnosis Francesco Lucero MD [address] [facility] [address] [place] [address] [phone] 09/15/2025 Francesco Lucero Plan Of Treatment Next Appt Details Provider Name:Francesco Pressley ieshima, 01/23/2026 07:15:00 AM, [address] [place] [address], [address] [place] [address], [phone], Provider Name:Francesco salas, 01/30/2026 08:30:00 AM, [address] [place] [address], [address] [place] [address], [phone], Progress Notes * Marietta CORTEZ KDOB: [birth year] (45 yo F)Acc No.[id number]:09/15/2025 Patient: Marietta VICK Srinivasa :1980 A ge:45 Y S ex:Female Address:[address] [place] [phone] * true * Date: Generated for Printi ng/Fascottg/eTransmitting on: 1 01/09/2025 05:52 PM EST
--- OUTSIDE RECORDS SUMMARY | 2025-09-29 02:45 | XMS_ITS ---
Author Organization Francesco Lucero MD Address [address] [place], [place] [id number] Care Team Providers Care Highway Inspector Name Role Phone Francesco Lucero Primary Care Provider [phone] REASON FOR VISIT 1 WEEK F/U Medications [...] Date Provider Diagnosis Francesco Lucero MD [address] [place] [address] [place] [phone] 09/29/2025 Francesco Lucero Mild intermittent asthma without [...] Details Provider Name:Francesco salas, 01/23/2026 07:15:00 AM, [address] [place] [address], [address], [phone], Provider Name:Francesco salas, 01/30/2026 08:30:00 AM, [address] [place] [address], Suite [facility], [place], [place], [phone], Progress Notes * Marietta CORTEZ KDOB: 9 (45 yo F)Acc No.[id number]:09/29/2025 Progress Notes Patient: Marietta VICK Provider: Maliha Lucero MD :1980 A ge:45 Y S ex:Female Date:09/29/2025 Address:[address] [place] [id number] Subjective: * Chief Complaints: * 1 WEEK [...] Date: 11/29/2024 Generated for Brian flood/Jack/Rosannasmitting on: 01/09/2025 05:52 [...]
--- NOTE | 2025-11-08 13:47 | A.OFFVIS_ITS ---
Vital Signs 11/08/25 13:49 Height 5 ft 2 in BP 122/82 Blood Pressure Location Lt brachial Position Sitting Intake Visit Reasons: emb follow up Intake Note: revere emb results. no concerns Canteen Attendant Required: No Information Interpreted: non-clinical & clinical Accompanied by: Self / Same As Patient Allergies amoxicillin (Amoxicillin) Allergy (Mild, Verified 11/08/25 13:50) HIVES, rash Penicillins Allergy (Mild, Verified 11/08/25 13:50) HIVES propranolol Adverse Reaction (Unknown, Verified 11/08/25 13:50) Wheezing Medication List - Last Reconciled 11/08/25 by Virginia Chavarria LPN albuterol sulfate 90 mcg/actuation 2 puffs inhalation Q6H PRN bupropion HCl XL 150 mg PO QAM escitalopram oxalate 30 mg PO DAILY levothyroxine 150 mcg PO QAM norethindrone (contraceptive) 0.35 mg PO DAILY 84 days Is last menstrual period known: Yes Last menstrual period: 11/06/25 Do you need a note to return to daycare/school/sports/work: No HPI Comments Details: Patient is here today for a follow up on her endometrial biopsy results due to a history of abnormal uterine bleeding. Current progesterone only pill use with persist break through bleeding. History of migraines with aura. History of tubal ligation. 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 Sexual orientation: Straight/Heterosexual Gender identity: Female Female Reproductive History Menstrual Age of Menarche: 14 Date of last menstrual period: 11/06/25 control method: permanent sterilization Total pregnancies: 4 Number of Living Children: 3 Ab induced: 1 Physical Exam Vital Signs: Last Vital Signs BP 122/82 11/08/25 13:49 Results Reviewed Results Reviewed: Name: Marietta Cortez Age/Sex: 45/F Attending: Lexie Hampton CNM : 1980 Submitted by: Lexie Hampton CNM Copies to: Francesco Lucero MD MR #: [id number] Status: DEP REF Collected: 10/05/25 Location: [facility] Received: 10/06/25 Diagnosis Endometrium, biopsy: - Inactive endometrium; no atypia or hyperplasia identified. - Rare degenerated squamous epithelium. Assessment & Plan Assessment & Plan (1) Abnormal uterine bleeding (AUB): Code(s): N93.9 - Abnormal uterine and vaginal bleeding, unspecified Category: Medical Plan Discussed: Endometrial biopsy results- Diagnosis Endometrium, biopsy: - Inactive endometrium; no atypia or hyperplasia identified. - Rare degenerated squamous epithelium. Discuss options for cycle control, including the Mirena IUD-not interested had in the past, change of hormones, plan Aygestin 5 mg b.i.d.. Follow up 2 months for med check call sooner if there is any concerns. The patient expressed understanding and agreement with the plan of care. All of her questions and concerns were addressed to the best of my ability. This note is constructed using voice recognition software. While every effort has been made to ensure accuracy, transcribing machine operator errors may have been included. Medications: New norethindrone acetate 5 mg PO BID 60 tabs 1RF 30 days Discontinued norethindrone (contraceptive) Discontinued Reason: No Longer Medically Relevant 0.35 mg PO DAILY 84 days 84 tabs 4RF Coding Level of Care Code Est Pt Level 3 (34135) Diagnoses Abnormal uterine bleeding (AUB) N93.9
[2025-11-08 13:49] VITALS: BP 122/82
--- OUTSIDE RECORDS SUMMARY | 2025-11-08 17:51 | XMS_ITS | Patient Health Record ---
Author Organization Francesco Lucero MD Address [address] [place], [place] [address] Care Team Providers Care Spring Machine Operator Name Role Phone Francesco Lucero Primary Care Provider Allergies Allergen (clinical drug ingredient) Drug/Non Drug Allergy documented on EMR Reaction Allergy Type Onset Date Status amoxicillin amox (uncoded) rash Allergy Act arvin penicillin (uncoded) rash Allergy Active Results Component Value Reference Range Notes XR chest 2V Reviewed date:12/31/2024 10:42:23 AM Interpretation: Performing Lab: Notes/Report: [address] [address] XRay Report Signed Patient: Marietta Dave MR#: [id number] 11 : 1980 Acct:[id number] Age/Sex: 44 / F ADM Date: 12/30/24 Loc: .ED Attending Dr: Ordering Physician: Nate Cuevas MD Date of Service: 12/30/24 Procedure(s): XR chest 2V Accession Number(s): [id number] cc: Francesco Lucero MD; Nate Cuevas MD [...] in OV> 12/30/242207 DD/ 06 TD/TT: 12/30/242206 Tape Editor: [address] [place] [address] XRay Report Signed Patient: Marcial Dave MR#: [id number] 11 : 1980 Acct:[id number] Age/Sex: 44 / F ADM Date: 12/30/24 Loc: HO.ED Attending Dr: Ordering Physician: Nate Cuevas MD Date of Service: 12/30/24 Procedure(s): XR chest 2V Accession Number(s): [id number] cc: Francesco Lucero MD; Nate Cuevas MD CLINICAL HISTORY: sob 2 view chest x-ray Comparison: DX/SR - XR CHEST 2V - 02/26/24 15:04 EDT Findings: No consolidation or effusion. Heart size is normal. No acute fracture. IMPRESSION: 1. No acute findings. This document has be en electronically signed by: Belinda Medina MD on 12/30/2024 22:07:15 Dictated By: Belinda Medina MD Signed By: <Electron icagregy signed by Belinda Medina MD in OV> 12/30/242207 DD/ 06 TD/TT: 12/30/242206 Tape Editor: MM tomosynthesis screening B I Reviewed date:01/11/2025 04:55:27 PM Interpretation: Performing Lab: Notes/Report: [facility] [address] [place] [address] Mammography Report Signed Patient: Marietta Dave MR#: [id number] 11 : 1980 Acct:[id number] Age/Sex: 44 / F ADM Date: 01/04/25 Loc: HO.MAMMO Attending Dr: Francesco Lucero MD Ordering Physician: Francesco Lucero MD Results: 2Be nign Findings Date of Service: 01/04/25 Follow Up: 1 Year From Orig inal Mammogram Procedure(s): MM tomosynthesis screening BI Accession Number(s): [id number] cc: Francesco Lucero MD EXAMINATION: MM SCREENING [...] 01/11/25 1639 DD/ 0745 TD/TT: 01/04/25 0749 Tape Editor: [place] [facility] [address] [place], [place] [address] Mammography Report Signed Patient: Marcial Dave MR#: [id number] 11 : 1980 Acct:[id number] Age/Sex: 44 / F ADM Date: 01/04/25 Loc: HO.MAMMO Attending Dr: Francesco Lucero MD Ordering Physician: Francesco Lucero MD Results: 2Be nign Findings Date of Service: 10/18 Follow Up: 1 Year From Orig inal Mammogram Procedure(s): MM tomosynthesis screening BI Accession Number(s): [id number] cc: Francesco Lucero MD EXAMINATION: MM SCREENING [...] By: Emilie Antonio DO Signed By: <Electron ically signed by Emilie Antonio DO in OV> 01/11/25 1639 DD/ 0745 TD/TT: 01/04/25 0749 Tape Editor: Pathology Reviewed date:07/06/2025 02:08:06 PM Interpretation: Performing Lab:[facility], [address] [place] [phone] Notes/Report: ------ Name: Marietta Dave Age/Sex: 45/F : 1980 Unit#: [id number] Attend Dr: Chepe Stock MD Re07/04/25 Status : DEP REF Location: [facility] Disch: ------ SPEC : [id number] RECD : 07/05/25 STATUS: RICKY MARTIN NUM: [id number] LINA: 07/04/25 [facility] DR: Chepe Stock MD ENTERED: 07/05/25 SP TYPE: Surgical OTHR DR: Francesco Lucero [...] developed and their performance characteristics determined by [facility]. They have not been cleared or appr anya by the U.S. Food and Drug Administration (FDA). However, the FDA has determined that such clearance or approval is not necessary. This laboratory is certified under the Clinical Laboratory Improvement Amendments of 1988 (CLIA) as qualified to perform high comp lexity clinical laboratory testing. Copies To: Francesco Lucero MD [facility] [address] [address] CONTINUED ON NEXT PAGE ------ Name: Marietta Dave Age/Sex: 45/F : 1980 Unit#: [id number] Attend Dr: Chepe Stock MD Re07/04/25 Status : DEP REF Location: HO.LNP Disch: ------ SPEC : [id number] RECD : 07/05/25 STATUS: RICKY AMRTIN NUM: [id number] LINA: 07/04/25-1430 [facility] DR: Chepe Stock MD ENTERED: 07/05/25- SP TYPE: Surgical OTHR DR: Francesco Lucero MD ORDERED: Gross Micro L3 Copies To: (Continued) Chepe Stock MD [facility] [address] [place] [address] ------ Signed (signature on file) Aleah Biju 07/06/25 1120 ------ END OF REPORT Vitamin D 25-OH (D2 and D3) Reviewed date:08/18/2025 04:26:45 PM Interpretation: Performing Lab:[facility], [address] [place] [phone] Notes/Report: Vitamin D 25-OH, D2 <4 This test was developed and its analytical performance characteristics have been determined by [facility] [place], [place]. It has not been cleared or approved by the U.S. Food and Drug Administration. This assay has been validated pursuant to the CLIA regulations and is used for clinical purposes. THIS TEST WAS PERFORMED AT: [employer] [address] [address] BONI ALMONTE MD,PHD Vitamin D 25-OH, D3 23 This test was developed and its analytical performance characteristics have been determined by [facility] [place], [place]. It has not been cleared or [...] ng/mL. For additional information, please refer to http://education.Specialized Tech/faq/ LIZ067 (This link is being provided for informational/ educational purposes only.) Thyroid Stimulating Hormone Reviewed date:08/10/2025 05:54:54 PM Interpretation: Performing Lab:[facility], [address] [place] [phone] Notes/Report: Thyroid Stimulating Hormone 2.04 0.32-4.0 uIU/mL TSH 3rd Generation ([facility]) CT NG by PCR Reviewed date:08/11/2025 12:23:34 PM Interpretation: Performing Lab:[address] [address] Notes/Report: CT PCR NOT DETECTED Not Detect. [...] Panel Reviewed date:08/11/2025 12:23:44 PM Interpretation: Performing Lab:[facility], [address] [place] [phone] Notes/Report: Trichomonas vaginalis PCR NOT DETECTED Not [...] Smear Reviewed date:08/16/2025 06:20:27 PM Interpretation: Performing Lab:[facility], [address] [place] [phone] Notes/Report: ------ Name: Marietta Dave Age/Sex: 45/F : 1980 Unit#: [id number] Attend Dr: Lexie Hampton CNM Re08/10/25 Status : DEP REF Location: [facility] Disch: ------ SPEC : [id number] RE CD: 08/11/25 STATUS: RICKY MARTIN NUM: [id number] LINA: 08/10/25-[address]: Lexie Hampton CNM ENTERED: 08/11/25-07 24 SP TYPE: Pap Smr OT DR: Francesco Lucero MD ORDERED: Pap Smear [...] and HPV testing will be performed at [facility] (CLIA #[id number]), [address] [place] [address]. Testing for H PV was performed using the [employer] system. The presence of HPV in the [...] All professional ser vices are performed by [facility] ([address] [place] [address]; P h: [phone]; CLIA #[id number]). The PAP Test is a screening procedure with the inherent possibility of both false negative and false positive results. Results should be interpreted in the context of historic and current clinical fin dings. Reliability of the PAP Test is enhanced by performing the test on a regular repetit arvin basis. CONTINUED ON NEXT PAGE ------ Name: Marietta Dave Age/Sex: 45/F : 1980 Unit#: [id number] Attend Dr: Lexie Hampton CNM Re08/10/25 Status : DEP REF Location: HO.LNP Disch: ------ SPEC : [id number] REC STATUS: RICKY VERONICA NUM: [id number] LINA: 08/10/25-1444 [facility] DR: Lexie Hampton CNM ENTERED: 08/11/25-07 24 SP TYPE: Pap Smr OTHR DR: rFancesco Lucero MD ORDERED: Pap Smear Copies To: Francesco Lucero MD [facility] [address] [facility] [address] [place] [address] Lexie Hampton CNM [facility] Women's Services [address] [facility] [address] [place] [address] ------ Signed (signature on file) DANYA Siddiqi ([facility]) 08/16/25 7557 ------ END OF REPORT HPV High risk Reviewed date:08/15/2025 05:05:04 PM Interpretation: Performing Lab:[facility], [address] [place] [phone] Notes/Report: HPV High Risk Negative Negative HPV Genotype 16 Negative Negative HPV Genotype 18 Negative Negative HPV testing performed at [facility] (CLIA #[id number]), [address] [place] [address]. Testing for HPV was performed using the [...] date:09/29/2025 07:59:06 AM Interpretation: Performing Lab: Notes/Report: [address] [address] Ultrasound Report Signed Patient: Marietta Dave MR#: [id number] 11 : 1980 Acct:[id number] Age/Sex: 45 / F ADM Date: 09/28/25 Loc: . Attending Dr: Lexie Hampton CNM Ordering Physician: Lexie Hampton CNM Date of Service: 09/28/25 Procedure(s): US pelvic and transvaginal Accession Number(s): [id number] cc: Francesco Lucero MD; Lexie Hampton CNM [...] by: Rory Hanna MD 09/28/2025 03:00 PM [facility] Dictated By: Rory Hanna MD Signed By: <Electronically signed by Rory Hanna MD in OV> 09/28/25 1500 DD/ 1426 TD/TT: 09/28/25 1435 Tape Editor: [place] [address] Ultrasound Report Signed Patient: Marcial Dave MR#: [id number] 11 : 1980 Acct:[id number] Age/Sex: 45 / F ADM Date: 09/28/25 Loc: HO.US Attending Dr: Lexie Hampton CNM Ordering Physician: Lexie Hampton CNM Date of Service: 09/28/25 Procedure(s): US pel lizz and transvaginal Accession Number(s): [id number] cc: Francesco Lucero MD; Lexie Hampton CNM [...] by: Rory Hanna MD 09/28/2025 03:00 PM [facility] Dictated By: Rory Reza MD Signed By: <Sarah chao signed by Rory Hanna MD in OV> 09/28/25 1500 DD/ 1426 TD/TT: 09/28/25 1435 Tape Editor: Pathology Reviewed date:10/11/2025 08:19:30 AM Interpretation: Performing Lab:[facility], [address] [place] [phone] Notes/Report: ------ Name: Marietta Dave Age/Sex: 45/F : 1980 [id number] Unit#: [id number] Attend Dr: Lexie Hampton CNM Re10/05/25 Status : [facility] Location: [facility] Disch: ------ SPEC : [id number] RECD : 10/06/251549 STATUS: RICKY [facility] NUM: [id number] LINA: 10/05/25-1426 [facility] DR: Lexie Hampton CNM ENTERED: 10/06/25-16 10 SP TYPE: Surgical OTHR DR: Francesco Lucero MD ORDERED: HE Stain/2, Gross Micro L4 Diagnosis Endometrium, biopsy: - Inactive endometri um; no atypia or hyperplasia identified. - Rare degenerated squamous epithelium. Clinical History AUB Microscopic Description Microscopic sections reviewed. Material Received Endometrial bx Gross Description Received in formalin is a 1.5 x 1.2 x 0.3 cm aggregate of manzo-brown, glistening, irregular soft tissue admixed with a minimal amount of clotted blood. The specimen is filtered and totally submitted in cassette A1. (RANDALL) In formalin time: immediate; total time in formalin: 24-28 hours. IHC S/NG Disclaimer NOTE: Unless otherwi se stated, all tissue is formalin-fixed and paraffin-embedded. Some or all of the immunohistochemical tests reported herein may have been developed and their performance characteristics determined by [facility]. They have not been cleared or appr anya by the U.S. Food and Drug Administration (FDA). However, the FDA has determined that such clearance or approval is not necessary. This laboratory is certified under the Clinical Laboratory Improvement Amendments of 1988 (CLIA) as qualified to perform high comp lexity clinical laboratory testing. Copies To: Francesco Lucero MD [facility] 10 [facility] [address] [place], [place] [address] CONTINUED ON NEXT PAGE ------ Name: Marietta Dave Age/Sex: 45/F : 1980 Unit#: [id number] Attend Dr: Lexie Hampton CNM Re10/05/25 Status : [facility] REF Location: [facility] Disch: ------ SPEC : [id number] RECD : 10/06/[address] STATUS: RICKY MARTIN NUM: [id number] LINA: 10/05/25 [facility] DR: Lexie Hampton CNM ENTERED: 10/06/25-16 10 SP TYPE: Surgical OTHR DR: Francesco Lucero MD ORDERED: HE Stain/2, Gross Micro L4 Copies To: (Continued) Lexie Hampton CNM [facility] Women's Services 15 [facility] [address] [place] [address] ------ Signed (signature on file) Mateo Smalls MD 10/10/25 1828 ------ END OF REPORT Reason For Referral [...] 3 days for 14 days 09/15/2025 Active Escitalopram Oxalate 20 MG TAKE 1 TABLET BY MOUTH EVERY DAY FOR 30 DAYS for 90 Active Breo Ellipta 100-25 MCG/ACT 1 puff [...] was born. Fluarix Quadrivalent IM Intramuscular 01/02/2018 Adminmicheline red Tetanus Unknown 11/28/2009 Administered Fluarix Quadrivalent [...] 11/12/2021 Administered Fluarix Quadrivalent IM Intramuscular 08/22/2022 Adminmicheline red Flu Vaccine Unknown 08/12/2014 Pending Social [...] Problem Status W/U Status Risk Notes Problem 03915967 Anxiety (F41.9) Active confirmed Problem 087445738 Acquired hypothyroidism (E03.9) Active confirmed Problem 497970479 Mild intermitten t asthma without complication (J45.20) Active confirmed Problem Alcohol abuse (44477977) Alcohol abuse (F10.10) Active confirmed Problem 8337121 Migraine with au ra and without status migrainosus, not intractable (G43.109) Active confirmed Problem Dysthymia (51006979) Dysthymia (F34.1) Active confirmed Problem 051944736 Vaginal bleeding (N93.9) Active confirmed Problem Obsessive-com pulsive disorder (191629460) Obsessive thinking (F42.8) Active confirmed Vital Signs Blood pressure diastolic 80 mm Hg 09/29/2025 Height 62 in 09/29/2025 Blood pressure systolic 112 mm Hg 09/29/2025 Weight 181 lbs 09/29/2025 BMI 33.1 kg/m2 09/29/2025 Encounters Encounter Location Date Provider Diagnosis Francesco Lucero MD [address] [place] [id number] 01/25/2025 Francesco Lucero Alcohol abuse F10.10 ; Annual physical exam Z00.00 ; Dysthymia F34.1 ; Skin nodule R22.9 ; Acquired hypothyroidism E03.9 ; Mild intermittent asthma without complication J45.20 and Depression screening Z13.31 Francesco Lucero MD [address] [place] [id number] 03/10/2025 Francesco Lucero Mild intermittent asthma without complication J45.20 ; Dysthymia F34.1 and Skin nodule R22.9 Francesco Lucero MD [address] [place] [address] [id number] 09/15/2025 Francesco Lucero Mild intermittent asthma without complication J45.20 Francesco Lucero MD [address] [facility] [address] [place] [id number] 09/29/2025 Francesco Lucero Mild intermittent asthma without complication J45.20 Francesco Lucero MD [address] [place] [id number] 12/31/2024 Francesco Lucero MD [address] [place] [id number] 09/15/2025 Francesco Lucero MD [address] [place] [id number] 03/01/2025 Francesco Lucero MD [address] [place] [address] [id number] 05/17/2025 Francesco Lucero MD [address] [place] [address] [id number] 05/17/2025 Francesco Lucero Assessments Encounter Date Diagnosis [...] Skin nodule (ICD-10 - R22.9) referral to [facility] surgery 01/25/2025 Skin nodule (ICD-10 - R22.9) [...] Name:Francesco Pressley ier, 01/23/2026 07:15:00 AM, [address] [facility], [address], [place], [place], [phone], Provider Name:Francesco salas, 01/30/2026 08:30:00 AM, [address] [facility] [address], [place], [place], [id number], Insurance Providers Payer Name Payer Address Payer Phone Subscriber Number Group Number Insured Name Patient Relationship to Insured Coverage Start Date Coverage End Date [address] [facility] [id number] Marietta Dave Self - patient is the insured Medical (General) History Medical History History ICD Code appt in January [place] , [employer], 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 Soler
--- OUTSIDE RECORDS SUMMARY | 2025-11-08 17:52 | XMS_ITS | Patient Health Record ---
Author Organization [facility] Address [address] [place] [address] Care Team Providers Care Gas Prover Name Role Phone Francesco Lucero MD Primary Care Provider Farhan Jha [phone] Allergies Allergen (clinical drug ingredient) Drug/Non Drug Allergy documented on EMR Reaction Allergy Type Onset Date Status amoxicillin Amoxicillin Unknown Drug Allergy Act arvin Penicillin Unknown Drug Allergy Active Reason For Referral No Information Medications Medication SIG (Take, Route, Frequency, Duration) Notes Start Date End Date Status Synthroid Active Breo Ellipta Active buPROPion HCl Active Immunizations Vaccine Route Administration Date Status Comme nts Influenza Unknown 10/13/2024 Administered Social History Tobacco Use: Social History Observation Description Date Details (start date - stop date) Never Smoker NA - NA Social History Drug/Alcohol: Social Info Question Answer Notes AUDIT-C (Standard) Did you have a drink containing alcohol in the past year? Yes How often did you have a drink containing alcohol in the past year? 2 to 3 times a week (3 points) How many drinks did you have on a typical day when you were drinking in the past year? 3 or 4 drinks (1 point) How often did you have six or more drinks on one occasion in the past year? Less than monthly (1 point) Points 5 Interpretation Positive Tobacco Use: Social Info Question Answer Notes Tobacco Control (Standard) Tobacco use: Nonsmoker Additional Details Category Social Info Options Details Miscellaneous: Marital status: Occupation: [employer] Notes: 1 or 2 beers a few times a w [place] Problems Problem Type SNOMED Code ICD Code Onset Dates Problem Status W/U Status Risk Notes Problem Colon cancer screening (357308364) Colon cancer screening (Z12.11) Active confirmed Problem Preprocedural examination (448018520039976) Preprocedural examination (Z01.818) Active confirmed Problem Gastroesophageal reflux disease (905521832) GERD (gastroesophagea l reflux disease) (K21.9) Active confirmed Vital Signs Blood pressure diastolic 01 mm Hg 10/13/2025 Height 62 in 10/13/2025 Blood pressure systolic 001 mm Hg 10/13/2025 Weight 182.4 lbs 10/13/2025 BMI 33.36 kg/m2 10/13/2025 Procedures Procedure Date Ordered Date Performed Result Body Sit e COLONOSCOPY 10/13/2025 N/A Encounters Encounter Location Date Provider Diagnosis [facility] [address] [place] [address] 10/13/2025 Farhan Mazariegos Colon cancer screeni ng Z12.11 ; GERD (gastroesophageal reflux disease) K21.9 and Preprocedural examination Z01.818 [facility] [address] [place] [address] 06/01/2025 Farhan Mazariegos Assessments Encounter Date Diagnosis (ICD Code) Assessment Notes Treatment Notes Treatment Clinical Notes Section Notes 10/13/2025 Colon cancer screening (ICD-10 - Z12.11) Overall, Lamberto appears well. She is not having any particularly worrisome GI symptoms. I did recommend a colonoscopy for screening purposes given her age. We did review the rationale for this in regard to colorectal cancer prevention. Full consent has been obtained for this, including risks of bleeding and perforation. The procedure will be done with monitored anesthesia care. In regard to her reflux I advised her to continue to observe things in that regard. I did recommend some dietary discretion. I did advise her to continue to use uibq-qad-zwrlkc r medication as needed but to let me know if the reflux becomes more frequent or refractory to medication and we could then reassess things as to whether or not she might need a prescription medication for acid reduction or even an upper endoscopy. However at this point I do not think either 1 of those are necessary. Lamberto was comfortable with this plan. Thank you again for allowing me to participate in Lamberto's care. I shall continue to keep you advised of her progress. 10/13/2025 GERD (gastroesophageal reflux disease) (ICD-10 - K21.9) Overall, Lamberto appears well. She is not having any particularly worrisome GI symptoms. I did recommend a colonoscopy for screening purposes given her age. We did review the rationale for this in regard to colorectal cancer prevention. Full consent has been obtained for this, including risks of bleeding and perforation. The procedure will be done with monitored anesthesia care. In regard to her reflux I advised her to continue to observe things in that regard. I did recommend some dietary discretion. I did advise her to continue to use pdud-zpo-qtnkdd r medication as needed but to let me know if the reflux becomes more frequent or refractory to medication and we could then reassess things as to whether or not she might need a prescription medication for acid reduction or even an upper endoscopy. However at this point I do not think either 1 of those are necessary. Lamberto was comfortable with this plan. Thank you again for allowing me to participate in Lamberto's care. I shall continue to keep you advised of her progress. 10/13/2025 Preprocedural examination (ICD-10 - Z01.818) Overall, Lamberto appears well. She is not having any particularly worrisome GI symptoms. I did recommend a colonoscopy for screening purposes given her age. We did review the rationale for this in regard to colorectal cancer prevention. Full consent has been obtained for this, including risks of bleeding and perforation. The procedure will be done with monitored anesthesia care. In regard to her reflux I advised her to continue to observe things in that regard. I did recommend some dietary discretion. I did advise her to continue to use nmbm-qga-pdkoyj r medication as needed but to let me know if the reflux becomes more frequent or refractory to medication and we could then reassess things as to whether or not she might need a prescription medication for acid reduction or even an upper endoscopy. However at this point I do not think either 1 of those are necessary. Lamberto was comfortable with this plan. Thank you again for allowing me to participate in Lamberto's care. I shall continue to keep you advised of her progress. Plan Of Treatment Pending Test Test Name Order Date COLONOSCOPY 10/13/2025 Next Appt Details Provider Name:Farhan Mendoza Delilah , 12/12/2025 12:50:00 PM, [address] [facility] , [place], [place], [phone], Insurance Providers Payer Name Payer Address Payer Phone Subscriber Number Group Number Insured Name Patient Relationship to Insured Coverage Start Date Coverage End Date [facility] [address] [facility] [place], [place] [phone] [id number] LAMBERTO DAVE Self - patient is the insured Medical (General) History Medical History History ICD Code Anxiety Asthma Hypothyroidism Denies [place],DM,CVA,Lung disease,renal dise ase Migraines Surgical History Surgery Date(Month/Year) Tubal ligation 2014
== END 2025-11-08 14:18 | disposition home or self-care (01) ==
LOC: HO.HWS 13:44
PROVIDERS: PCP Internal Medicine; Visit Provider Advanced Practice Midwife
DX: N93.9 Abnormal uterine and vaginal bleeding, unspecified (principal)
CPT/HCPCS: 99213